=== PATIENT | male | born 1950 | race Caucasian/White ===

== ENCOUNTER 2016-05-07 16:59 | Observation (INO) | payer MEDICARE, BC ==
[~2016-05-07] VITALS: Ht 180.3 cm; Wt 150.0 kg
[~2016-05-07 16:59] MED LIST: AMLO10TA2 PO; ATOR1TAB18 PO; BENT20TA PO; CALC1CAP PO; COLA100C3 PO; CORE25TA PO; DILT-48 PO; DULC10SU3 RECTAL; FLEEENE3 PR; FURO1TAB60 PO; GABA100C4 PO; HYDR25TA35 PO; INSU1INJ5 SQ; ISOS60TA PO; LACT10SO PO; LAMO25 PO; METO5TAB3 PO; MIRA33504 PO; NOVOINJ3 SQ; PERC10TA27 PO; PRIL40CA PO; SEVEL800 PO; SITA25 PO
[2016-05-07 17:16] VITALS: BP 150/82; PULSE 72; PULSE 75; RESP 19; TEMP 97.6; TEMP 98.6; O2SAT 98
[2016-05-07] MEDS ORDERED: LANTUS2P SQ (17:44)
[2016-05-07] MEDS ORDERED: OMEP40CA2 PO (17:44)
[2016-05-07] MEDS ORDERED: NITR0.4S SL (17:44)
[2016-05-07] MEDS ORDERED: LORA-392 PO (17:44)
[2016-05-07] MEDS ORDERED: RENATAB5 PO (17:44)
[2016-05-07] MEDS ORDERED: APIX5TAB PO (17:44)
[2016-05-07] MEDS ORDERED: CELE20TA PO (17:44)
[2016-05-07] MEDS ORDERED: PHOS667C5 PO (17:44)
[2016-05-07] MEDS ORDERED: SODIUM CHLORIDE 0.9% FLUSH 5 ML FLUSH IVF PRN ×2 (18:45→20:45)
--- NOTE | 2016-05-07 18:47 | PD ---
HPI . Chest pain Chief Complaint: Chest Pain Time Seen by Provider: 18:00 Travel History International Travel<30 days: No Contact w/Intl Traveler<30days: No Traveled to known affect area: No History of Present Illness HPI Patient presents with chest pain that started at 3:30 PM. He states that he also had left arm pain. He reports chronic shortness of breath. He had diaphoresis and nausea without vomiting. Patient reports that he has had numerous previous similar episodes. Patient further reports that he is scheduled for colonoscopy and possible partial colectomy tomorrow. PFSH Past Medical History Hx Anticoagulant Therapy: No Anemia: Yes Arthritis: Yes Atrial Fibrillation: Yes Bipolar Disorder: Yes Depression: Yes Heart Rhythm Problems: Yes (Afib) Cancer: Yes (COLON) Cardiovascular Problems: Yes (HTN) High Cholesterol: Yes Chest Pain: Yes Congestive Heart Failure: Yes Cerebrovascular Accident: Yes Coronary Artery Disease: Yes Diabetes: Yes Patient Takes Glucophage: No Dialysis: Yes (--WED ) Diminished Hearing: No Endocrine: Yes (HYPERPARATHYROID) Gastrointestinal Disorders: Yes ( IBS) GERD: Yes Genitourinary: Yes (Dialysis ,,Wed) Headaches: Yes Hepatitis: Yes (C) Hiatal Hernia: No Hypertension: Yes Immune Disorder: No Implanted Vascular Access Dvce: Yes Medical other: Yes Musculoskeletal: Yes ( BACK PAIN) Neurologic: Yes Psychiatric: Yes Respiratory: Yes Migraines: Yes Renal Failure: Yes Seizures: No Sleep Apnea: No Thyroid Disease: Yes Ulcer: Yes Tetanus Vaccination: Unknown Influenza Vaccination: Yes Past Surgical History Abdominal Surgery: Yes (LAP. MARIA GUADALUPE) AICD: No Arteriovenous Shunt: Yes Cardiac Surgery: Yes (2 STENTS) Cholecystectomy: Yes (LAP) Coronary Stent: Yes (X2) Ear Surgery: No Endocrine Surgery: No Eye Surgery: No Genitourinary Surgery: No Joint Replacement: No Oral Surgery: Yes (TONSILLECTOMY) Pacemaker: No Tonsillectomy: Yes Other Surgery: Yes (SHUNT TO L UPPER ARM ) Social History Alcohol Use: No Tobacco Use: No Substance Use: No Allergies-Medications (Allergen,Severity, Reaction): Coded Allergies: Demerol (Verified Allergy, Severe, HYPERTENSION, 05/07/16) Morphine (Verified Allergy, Severe, HYPERTENSION, 05/07/16) Reported Meds & Prescriptions Reported Meds & Active Scripts Active Percocet (Oxycodone-Acetaminophen) 10-325 mg Tab 1 Tab PO Q4H PRN Reported Niya-Ann (B-Complex W/ C & Folic Acid) 1 Tab 1 Tab PO DAILY Phoslo (Calcium Acetate (Phosphate Binder)) 667 Mg Cap 2,001 Mg PO TID Take 3 capsules (2,001mg) three times a day with meals, take 1 capsule (667mg) with snacks Eliquis (Apixaban) 5 Mg Tab 5 Mg PO BID Omeprazole 40 Mg Cap 40 Mg PO DAILY Nitrostat SL (Nitroglycerin) 0.4 Mg Subl 0.4 Mg SL DIRECTED PRN 1 tablet under the tongue as needed for chest pain. Repeat every 5 minutes for a total of 3 DOSES or call 911 if NO relief. Celexa (Citalopram Hydrobromide) 20 Mg Tab 20 Mg PO DAILY Ativan (Lorazepam) 0.5 Mg Tab 0.5 Mg PO TID Lantus Inj (Insulin Glargine) 100 Unit/Ml Inj 60 Units SQ HS Novolog Flexpen Inj (Insulin Aspart) 300 Unit/3 Ml Pen 2-10 Units SQ ACHS SLIDING SCALE 0-70=4OZ orange juice, notify (if pt unresponsive give 1mg glucagon inj from E-kit & call 911) 71-150=0 units, 151-200=2 units, 201-250=4 units, 251-300=6 units, 301-350=8 units, 351-400=10 units, >400 notify Diltiazem ER 24 HR 240 Mg Caper 240 Mg PO DAILY Isosorbide Mononitrate ER (Isosorbide Mononitrate) 60 Mg Tab 60 Mg PO BID Metolazone 5 Mg Tab 5 Mg PO DAILY Amlodipine (Amlodipine Besylate) 10 Mg Tab 10 Mg PO DAILY Lamictal (Lamotrigine) 25 Mg Tab 25 Mg PO BID Januvia (Sitagliptin Phosphate) 25 Mg Tab 25 Mg PO DAILY Gabapentin 100 Mg Cap 100 Mg PO TID Lasix (Furosemide) 40 Mg Tab 40 Mg PO DAILY Colace (Docusate Sodium) 100 Mg Cap 100 Mg PO DAILY Coreg (Carvedilol) 25 Mg Tab 25 Mg PO BID Atorvastatin (Atorvastatin Calcium) 80 Mg Tab 80 Mg PO HS Hydralazine (Hydralazine HCl) 25 Mg Tab 25 Mg PO TID Take with a meal Review of Systems Except as stated in HPI: all other systems reviewed are Neg Cardiovascular: Positive: Chest Pain or Discomfort Respiratory: Positive: Shortness of Breath Gastrointestinal: Positive: Nausea Skin: Positive Other (diaphoresis) Physical Exam Narrative GENERAL: Healthy-appearing man in no acute distress. SKIN: Warm and dry. HEAD: Atraumatic. Normocephalic. EYES: Pupils equal and round. ENT: No nasal bleeding or discharge. Mucous membranes pink and moist. NECK: Trachea midline. Neck is supple. CARDIOVASCULAR: He has an irregularly irregular rate and rhythm. Rate is controlled. RESPIRATORY: No accessory muscle use. Lungs are clear with full air movement throughout. GASTROINTESTINAL: Abdomen soft, non-tender, nondistended. MUSCULOSKELETAL: No obvious deformities. No edema. NEUROLOGICAL: Awake and alert. No obvious cranial nerve deficits. Motor grossly within normal limits. Normal speech. PSYCHIATRIC: Appropriate mood and affect; insight and judgment normal. Data Data Last Documented VS Vital Signs Date Time Temp Pulse Resp B/P Pulse Ox O2 Delivery O2 Flow Rate FiO2 05/07/16 19:20 108 15 100 Nasal Cannula 2 05/07/16 19:20 134/109 05/07/16 17:16 97.6 Orders Electrocardiogram (05/07/16 ) Basic Metabolic Panel (Bmp) (05/07/16 18:37) Ckmb (Isoenzyme) Profile (05/07/16 18:37) Complete Blood Count With Diff (05/07/16 18:37) Magnesium (Mg) (05/07/16 18:37) Troponin I (05/07/16 18:37) Chest, Single Ap (05/07/16 18:37) Ecg Monitoring (05/07/16 18:37) Bilateral Bp Monitoring (05/07/16 18:37) Iv Access Insert/Monitor (05/07/16 18:37) Oximetry (05/07/16 18:37) Oxygen Administration (05/07/16 18:37) Sodium Chloride 0.9% Flush (Ns Flush) (05/07/16 18:45) Prothrombin Time / Inr (Pt) (05/07/16 19:24) Act Partial Throm Time (Ptt) (05/07/16 19:24) Place In Observation (05/07/16 20:33) Activity Bed Rest With Brp (05/07/16 20:33) Vital Signs (Adult) Q4H (05/07/16 20:33) Cardiac Rhythm .As Directed (05/07/16 20:33) ^ Notify Dr: Other .PRN (05/07/16 20:33) ^ Notify Parameters (05/07/16 20:33) Resp Oxygen Nasal Cannula (05/07/16 ) Ckmb (Isoenzyme) Profile (05/07/16 22:17) Ckmb (Isoenzyme) Profile (05/08/16 01:17) Troponin I (05/07/16 22:17) Troponin I (05/08/16 01:17) Electrocardiogram (05/07/16 20:33) Electrocardiogram (05/07/16 23:33) ^ Obtain (05/07/16 20:33) Sodium Chloride 0.9% Flush (Ns Flush) (05/07/16 20:45) Sodium Chloride 0.9% Flush (Ns Flush) (05/07/16 21:00) Ondansetron Inj (Zofran Inj) (05/07/16 20:45) Nitroglycerin 2% Oint (Nitroglycerin 2% (05/07/16 20:45) Aspirin Chew (Aspirin Chew) (05/07/16 20:45) Disciplinary Hearing Officer / Telemetry ORQUIDEA.Q8H (05/07/16 20:33) Vte Prophylaxis Not Indicated (05/07/16 20:33) Heparin Inj (Heparin Inj) (05/07/16 20:45) Scd Bilateral/Knee High ORQUIDEA.BID (05/07/16 20:33) Labs Laboratory Tests Test 05/07/16 19:17 White Blood Count 14.3 TH/MM3 Red Blood Count 4.69 MIL/MM3 Hemoglobin 13.4 GM/DL Hematocrit 40.7 % Mean Corpuscular Volume 86.8 FL Mean Corpuscular Hemoglobin 28.6 PG Mean Corpuscular Hemoglobin 33.0 % Concent Red Cell Distribution Width 18.5 % Platelet Count 208 TH/MM3 Mean Platelet Volume 7.1 FL Neutrophils (%) (Auto) 78.5 % Lymphocytes (%) (Auto) 11.5 % Monocytes (%) (Auto) 8.5 % Eosinophils (%) (Auto) 1.0 % Basophils (%) (Auto) 0.5 % Neutrophils # (Auto) 11.3 TH/MM3 Lymphocytes # (Auto) 1.6 TH/MM3 Monocytes # (Auto) 1.2 TH/MM3 Eosinophils # (Auto) 0.1 TH/MM3 Basophils # (Auto) 0.1 TH/MM3 CBC Comment DIFF FINAL Differential Comment Sodium Level 138 MEQ/L Potassium Level 4.7 MEQ/L Chloride Level 98 MEQ/L Carbon Dioxide Level 31.7 MEQ/L Anion Gap 8 MEQ/L Blood Urea Nitrogen 32 MG/DL Creatinine 5.68 MG/DL Estimat Glomerular Filtration 10 ML/MIN Rate Random Glucose 133 MG/DL Calcium Level 9.2 MG/DL Magnesium Level 2.1 MG/DL Total Creatine Kinase 81 U/L Troponin I LESS THAN 0.02 NG/ML MDM Medical Decision Making Medical Screen Exam Complete: Yes Emergency Medical Condition: Yes Medical Record Reviewed: Yes (patient has a history of atrial fibrillation. He had an echo done in February that showed a normal ejection fraction.) Interpretation(s) EKG shows atrial fibrillation with a rate of 100. He has no ST segment elevation or depression. EKG is unchanged from previous. Differential Diagnosis Differential diagnosis of chest pain includes but is not limited to musculoskeletal pain, pulmonary embolism, acute coronary syndrome, pneumonia, pleurisy Narrative Course Patient presents for evaluation of chest pain. I have not yet ordered any aspirin or any other antiplatelet or anticoagulation medication. He is scheduled for colonoscopy tomorrow. Therefore, I will hold off on these medications until we have a better picture as to what is going on with him tonight. Patient's initial workup has been negative. He does continue to complain with chest pain. I have subsequently ordered aspirin, heparin (as he is a renal failure patient) and nitroglycerin. He will be admitted to the chest pain center. Critical Care Narrative Aggregate critical care time was 45 minutes. Time to perform other separately billable procedures was not included in the critical care time. My time did not include minutes spent treating any other patients simultaneously or on activities that did not directly contribute to the patient's treatment. The services I provided to this patient were to treat and/or prevent clinically significant deterioration that could result in: Fail cardiac dysrhythmia, cardiac disability, cardiovascular collapse I provided critical care services requiring my management, as noted below: Chart data review, documentation time, medication orders and management, vital sign assessments/reviewing monitor data, ordering and reviewing lab tests, ordering and interpreting/reviewing x-rays and diagnostic studies, care of the patient and discussion of the patient with the admitting physicians. Diagnosis Primary Impression: Chest pain Qualified Code: R07.9 - Chest pain, unspecified type Admitting Information Admitting Physician Requests: Admit Condition: Stable Samantha Adamson MD May 07, 2016 18:47
[2016-05-07 19:20] VITALS: BP 134/109; PULSE 97; RESP 15; O2SAT 95
[2016-05-07 19:29] LABS: AUTOMATED NEUTROPHIL # 11.3 TH/MM3 (1.8-7.7); BASOPHIL # 0.1 TH/MM3 (0-0.2); BASOPHIL % 0.5 % (0.0-2.0); EOSINOPHIL # 0.1 TH/MM3 (0-0.4); HEMATOCRIT 40.7 % (39.0-51.0); HEMO FLAGS DIFF FINAL; LYMPH % 11.5 % (9.0-44.0); LYMPHOCYTE # 1.6 TH/MM3 (1.0-4.8); MEAN CELL VOLUME 86.8 FL (80.0-100.0); MEAN CORPUSCULAR HEMOGLOBIN 28.6 PG (27.0-34.0); MONO % 8.5 % (0.0-8.0); NEUT % 78.5 % (16.0-70.0); PLATELET COUNT 208 TH/MM3 (150-450); RED BLOOD COUNT 4.69 MIL/MM3 (4.50-5.90); RED CELL DISTRIBUTION WIDTH 18.5 % (11.6-17.2); WHITE BLOOD COUNT 14.3 TH/MM3 (4.0-11.0)
--- NOTE | 2016-05-07 19:46 | RADRPT ---
EXAM DATE/TIME: 05/07/2016 18:48 [facility] COMPARISON: CHEST SINGLE AP, March 15, 2016, 18:27. INDICATIONS : Chest pain. MEDICAL HISTORY : Hypertension. SURGICAL HISTORY : Carotid stent. ENCOUNTER: Initial ACUITY: 1 day PAIN SCORE: 6/10 LOCATION: chest FINDINGS: A single view of the chest demonstrates the lungs to be symmetrically aerated without evidence of mas s, infiltrate or effusion. The cardiomediastinal contours are unremarkable. Osseous structures are intact. CONCLUSION: No acute disease. Telly Jo MD on May 07, 2016 at 19:44 Board Certified Radiologist. This report was verified electronically.
[2016-05-07 19:51] LABS: ANION GAP 8 MEQ/L (5-15); BICARBONATE 31.7 MEQ/L (21.0-32.0); BLOOD UREA NITROGEN 32 MG/DL (7-18); CHLORIDE 98 MEQ/L (98-107); GLOMERULAR FILTRATION RATE 10 ML/MIN (>89); MAGNESIUM 2.1 MG/DL (1.5-2.5); POTASSIUM 4.7 MEQ/L (3.5-5.1); SODIUM (NA) 138 MEQ/L (136-145)
[2016-05-07 20:03] LABS: CREATINE KINASE 81 U/L (39-308)
[2016-05-07] MEDS ORDERED: ASPIRIN 81 MG CHEW TAB PO ONE (20:45)
[2016-05-07] MEDS ORDERED: ONDANSETRON HCL 4 MG/2 ML VIAL IV PRN (20:45)
[2016-05-07] MEDS: NITROGLYCERIN 2% OINT 1 GM PACKET TOP SCH ×2 (21:47→23:54)
[2016-05-07] MEDS: HEPARIN SODIUM - SQ 10,000 UNITS/ML VIAL SQ SCH (21:47)
[2016-05-07] MEDS: SODIUM CHLORIDE 0.9% FLUSH 5 ML FLUSH IVF SCH (21:48)
[2016-05-07 22:31] VITALS: BP 105/51; PULSE 96; RESP 16; O2SAT 96
[2016-05-07 23:03] LABS: APTT (PATIENT) 28.5 SEC (24.3-30.1); INTERNATIONAL NORMALIZED RATIO 1.1 RATIO; PROTHROMBIN TIME - PATIENT 11.8 SEC (9.8-11.6)
[2016-05-07 23:16] LABS: CREATINE KINASE 63 U/L (39-308)
[2016-05-08 00:28] VITALS: PULSE 97
[2016-05-08 01:01] VITALS: BP 126/76; PULSE 67; RESP 18; TEMP 98.7; O2SAT 97
[2016-05-08 01:54] LABS: CREATINE KINASE 62 U/L (39-308)
[2016-05-08 04:19] VITALS: PULSE 96
[2016-05-08 04:36] VITALS: BP 126/60; PULSE 56; RESP 18; TEMP 97.6; O2SAT 97
[2016-05-08] MEDS: NITROGLYCERIN 2% OINT 1 GM PACKET TOP SCH ×2 (06:22→12:00)
[2016-05-08 08:06] VITALS: BP 94/58; PULSE 106; RESP 18; TEMP 97.2; O2SAT 94
[2016-05-08] MEDS ORDERED: REGADENOSON INJ 0.4 MG/5 ML SYR ONE (09:41)
[2016-05-08] MEDS ORDERED: DEXTROSE 50% IN WATER 50 ML VIAL(D50) IV PRN (09:45)
[2016-05-08] MEDS ORDERED: GLUCAGON 1 MG/ML VIAL IM/SQ PRN (09:45)
[2016-05-08] MEDS ORDERED: CARVEDILOL 12.5 MG TAB PO SCH (09:45)
[2016-05-08] MEDS ORDERED: DILTIAZEM-CD 240 MG CAP ER PO SCH (09:45)
[2016-05-08] MEDS ORDERED: INSULIN ASPART SUPPLEMENTAL SCALE SQ SCH (11:00)
[2016-05-08 11:43] VITALS: BP 138/60; PULSE 93; RESP 18; TEMP 97.1; O2SAT 95
--- NOTE | 2016-05-08 11:45 | MH ---
cc: ABRAHAM MARINO MD DATE OF ADMISSION: 05/07/2016 DATE OF 1950 CHIEF COMPLAINT Chest pain HISTORY OF PRESENT ILLNESS This is a 66-year-old male with a history of CAD and atrial fibrillation and renal failure who undergoes dialysis. He presents with developing a chest comfort to yesterday while on dialysis. This was in the center of his chest and lasted 30 minutes. He was diaphoretic and nauseous and states he was short of breath and states he is essentially always short of breath. He said several times that his discomfort seemed similar to the pain he gets with his hiatal hernia. It does not feel similar to the discomfort that he has with his heart disease in the past. 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 He also has a health aide that he follows, but he does not recall their name. His primary care physician is Dr. Brock. Seeing the patient today, he is supposed to have colonoscopy today. He apparently had a diagnostic laparoscopy with polypectomy with partial wedge type colectomy March 17, [address] Hodge, but did not recall this. He is somewhat of a poor historian. He states he lives with his friend Justina and I can talk with her to get more information, but I have able unable to reach her at this time. PAST MEDICAL HISTORY 1. A fibrillation. r The patient does not take Eliquis. The patient states he was told to stop taking Eliquis, however found a dictation from a GI note that stated that the patient was refusing to take his Eliquis because he was afraid to bleed. Discussed this with the patient and again he still states that he was told not to take the Eliquis secondary to GI bleeding 2. CAD with stenting. He believes the last time was about 10 years ago. 3. Renal failure and undergoes dialysis. 4. The pathology from colonoscopy came back adenocarcinoma moderately differentiated, however the pathology of the bowel resection did not show any evidence of malignancy. 5. Hyperlipidemia 6. Inflammatory bowel disease. ALLERGIES DEMEROL AND MORPHINE CURRENT MEDICATIONS Include: 1. Amlodipine 2. Atorvastatin 3. Bentyl 4. Calcium acetate 5. Carvedilol 6. Diltiazem 7. Docusate 8. Dulcolax 9. Lasix 10. Gabapentin 11. Hydralazine 12. Isosorbide 13. Januvia 14. Lactulose 15. Lamotrigine 16. Levemir 17. Metolazone 18. NovoLog 19. Omeprazole 20. Oxycodone 21. Polyethylene glycol PAST SURGICAL HISTORY 1. Recent laparoscopy and polypectomy with partial wedge type colectomy. 2. He has had cardiac catheterizations with stenting. 3. He has a fistula for his dialysis. 4. Cholecystectomy 5. tonsillectomy REVIEW OF SYSTEMS GENERAL: Denies fevers or chills. Denies recent illnesses. HEENT: Denies headache, earache, sore throat or difficulty swallowing. CARDIOVASCULAR: Describes the discomfort as mentioned above. There is diaphoresis. Denies sensation of heart beating rapidly or irregularly. No syncope. RESPIRATORY: No shortness breath, but states he always is short of breath. Denies coughing, wheezing or hemoptysis. GI: There is nausea, but denies emesis. Denies abdominal pain. Denies diarrhea, constipation, blood in stool. MUSCULOSKELETAL: Denies joint pain or edema. Denies calf pain or edema. NEUROVASCULAR: Denies headache or dizziness. ENDOCRINE: Denies polyuria or polydipsia. HEMATOLOGIC: Denies easy bruising. SKIN: Denies rash or itching. PHYSICAL EXAMINATION VITAL SIGNS: In the emergency department included a blood pressure of 150/82, heart rate 72, respirations 19, pulse oximetry 98% on room air and he was afebrile. Most vital signs include a blood pressure 94/53, heart rate 106, respirations 18, pulse oximetry 94% on room air and he was afebrile. I had his blood pressure retaken and the systolic was over 100 at that time. GENERAL: The patient seen in the examination room in no apparent stress. He is morbidly obese at 150 kg. He is also with Dr. Abraham Marino. HEENT: Head is atraumatic, normocephalic. NECK: Supple without lymphadenopathy and trachea is midline. No JVD or carotid bruits. CARDIOVASCULAR: Irregularly irregular rate and rhythm without gallop or rub. RESPIRATORY: Lungs are clear to auscultation bilaterally. No wheezing, rales or rhonchi. There is no reproducible chest wall discomfort. No use of accessory muscles. GI: Abdomen is nontender. Bowel sounds normal. MUSCULOSKELETAL: The patient is moving upper and lower extremities freely. No joint tenderness or edema. No calf tenderness or edema, Homans' sign. Strong pulses in the upper and lower extremities. NEUROVASCULAR: The patient is alert and oriented. Cranial II XII grossly intact. There are no focal deficits. Speech clear. SKIN: No skin rashes, turgor is normal. LABORATORY DATA CBC has an elevated white blood cell count of 14.3 with 78.5% neutrophils, but otherwise essentially remarkable CBC. Coagulation studies unremarkable. A basic metabolic panel has a BUN elevated to 32, creatinine elevated to 5.68, GFR decreased at 10, glucose elevated at 133. Serial cardiac enzymes normal x3. Single view chest x-ray read by radiologist as no acute disease. EKG's EKG's have A. Fib with the highest rate of [address]-segment depression or elevation. ASSESSMENT AND PLAN 1. Chest pain: The patient has had serial cardiac enzymes and EKG's for ruling out purposes. He has been seen by Dr. Abraham Marino of Cardiology in the [facility]. We have been unable to ascertain through the patient who follows her cardiology. Subsequently, we will repeat a Lexiscan. He had one in January that was nonischemic, but as he is a poor history, we will try to confirm, hopefully it was a nonischemic stress test. If stress test were to be nonischemic, he can be will be discharged home with instruction to follow up with a local primary care physician, his rehabilitation services aide and his health aide and also he needs to follow up with his oncologist. 2. Atrial fibrillation: He needs to follow up with his health aide. Resume his medications. The patient is declining Eliquis at this time. We need to discuss with his physician. 3. CAD: The patient will follow with his health aide. Resume medications. We will reassess with stress testing. 4. Recently told adenocarcinoma via polypectomy during colonoscopy. He needs to continue to follow up with his Oncologist. 5. Hypertension: Continue current medication. 6. Renal failure: Continue his therapy as instructed by his rehabilitation services aide. 7. Diabetes: Continue his current medication and he should be following a diabetic diet. The patient is stable at time. He is agreeable with this plan. Dictated by RYAN Peralta MD RAVIN Felix/NATE /10:38 AM /11:42 AM
--- NOTE | 2016-05-08 11:48 | RADRPT ---
EXAM DATE/TIME: 05/08/2016 09:40 [facility] COMPARISON: MYOCARDIAL PERF PHARM SPECT, GATED W/EF, January 15, 2016, 9:26. INDICATIONS : Substernal chest pain radiating to left arm with nausea, diaphoresis and dyspnea. Angina. Coronary ar ramón disease. DOSE: 34.7 mCi Tc99m Myoview at stress. 11 mCi Tc99m Myoview at rest. 0.4 mg Lexiscan STRESS SYMPTOMS: Nausea, headache, lightheaded, chest pressure and left arm pain. EJECTION FRACTION: 39% MEDICAL HISTORY : Carcinoma, colon. Gastroesophageal reflux disease. Hyperparathyroidism. Diabetes, atrial fibrillation , hepatitis C, hypertension, congestive heart failure, CVA and irritable bowel syndrome. SURGICAL HISTORY : Cholecystectomy. Coronary artery stent. Tonsillectomy. ENCOUNTER: Initial ACUITY: 1 day PAIN SCALE: 6/10 LOCATION: Substernal chest TECHNIQUE: The patient underwent pharmacologic stress with infusion of prescribed dose. Continuous ECG tracing was monitored during stress. Gated SPECT imaging was performed after stress and conventional SPECT i maging was performed at rest. The examination was performed on a SPECT/CT scanner, both attenuation and non-corrected datasets were reviewed. FINDINGS: DISTRIBUTION: The maximum perfused segment at stress is in the anteroseptal wall. PERFUSION STUDY: The pattern of perfusion at stress is within normal limits. GATED STUDY: There is intact wall motion and thickening without hypokinetic or dyskinetic segments. CONCLUSION: 1. No reversible perfusion defect to suggest stress induced myocardial ischemia. 2. Calculated ejection fraction was somewhat low at 39%. RISK CATEGORY: Intermediate (1-3% Annual Mortality Rate) Martin Cisneros MD on May 08, 2016 at 11:45 Board Certified Radiologist. This report was verified electronically.
[2016-05-08] MEDS: HEPARIN SODIUM - SQ 10,000 UNITS/ML VIAL SQ SCH (12:09)
[2016-05-08] MEDS: SODIUM CHLORIDE 0.9% FLUSH 5 ML FLUSH IVF SCH (12:09)
--- NOTE | 2016-05-08 12:44 | HHI.DCPOC ---
Discharge Care Plan Diagnosis: (1) Chest pain (2) A-fib (3) Hypertension (4) ESRD on hemodialysis (5) Type 2 diabetes mellitus Goals to Promote Your Health * To prevent worsening of your condition and complications * To maintain your health at the optimal level Directions to Meet Your Goals Take your medications as prescribed Follow your dietary instruction Follow activity as directed Keep your appointments as scheduled Take your immunizations and boosters as scheduled If your symptoms worsen call your PCP, if no PCP go to Urgent Care Center or Emergency Room Smoking is Dangerous to Your Health. Avoid second hand smoke Call the 24-hour hour crisis hotline for domestic abuse at Nabeel Daly May 08, 2016 12:44
[2016-05-08] MEDS ORDERED: ISOSORBIDE MONONITRATE 60 MG TAB PO SCH (12:45)
[2016-05-08] MEDS ORDERED: hydrALAZINE HCL 25 MG TAB PO SCH (13:00)
[2016-05-08] MEDS ORDERED: FUROSEMIDE 40 MG TAB PO SCH (13:00)
[2016-05-08] MEDS ORDERED: CITALOPRAM HYDROBROMIDE 20 MG TAB PO SCH (13:00)
[2016-05-08] MEDS ORDERED: CALCIUM ACETATE 667 MG CAP PO SCH (13:00)
[2016-05-08] MEDS ORDERED: GABAPENTIN 100 MG CAP PO SCH (13:00)
[2016-05-08] MEDS ORDERED: PANTOPRAZOLE SOD 40 MG DELAYED RELEASE TAB PO SCH (13:00)
[2016-05-08] MEDS ORDERED: lamoTRIgine 25 MG TAB PO SCH (14:00)
--- NOTE | 2016-05-08 15:18 | EKG ---
Date Performed: 05/07/2016 Time Performed: 22:26:50 PTAGE: 66 years EKG: ATRIAL FIBRILLATION WITH RAPID VENTRICULAR RESPONSE ABNORMAL RHYTHM ECG PREVIOUS TRACING : 05/07/2016 17.32 Since previous tracing, no significant change noted DOCTOR: Jr Roberts Interpretating Date/Time 05/08/2016 15:17:35
--- NOTE | 2016-05-08 15:18 | EKG ---
Date Performed: 05/08/2016 Time Performed: 01:08:20 PTAGE: 66 years EKG: ATRIAL FIBRILLATION WITH RAPID VENTRICULAR RESPONSE ABNORMAL RHYTHM ECG PREVIOUS TRACING : 05/07/2016 22.26 Since previous tracing, no significant change noted DOCTOR: Jr Roberts Interpretating Date/Time 05/08/2016 15:17:03
--- NOTE | 2016-05-08 15:20 | EKG ---
Date Performed: 05/07/2016 Time Performed: 17:32:40 PTAGE: 66 years EKG: ATRIAL FIBRILLATION WITH RAPID VENTRICULAR RESPONSE WITH ABERRANT CONDUCTION OR VENTRICULAR PREMATURE COMPLEXES ABNORMAL RHYTHM ECG PREVIOUS TRACING : 03/15/2016 18.01 Since previous tracing, no significant change noted DOCTOR: Jr Roberts Interpretating Date/Time 05/08/2016 15:19:35
--- NOTE | 2016-05-08 15:26 | TR ---
Date Performed: 05/08/2016 Time Performed: 10:12:54 DOCTOR: Jr Roberts DRUG LIST: CLINICAL HISTORY: REASON FOR TEST: CHEST PAIN REASON FOR ENDING: OBSERVATION: CONCLUSION: Lexiscan stress test was performed under standard four minute protocol. Radionuclid e was injected one minute prior to ending the test. No electrocardiographic abormalities were present to suggest ischemia. Nuclear imaging and interpretation are pending. COMMENTS:
[2016-05-08] MEDS ORDERED: ATORVASTATIN 80 MG TAB PO SCH (21:00)
[2016-05-09] MEDS ORDERED: METOLAZONE 5 MG TAB PO SCH (09:00)
[2016-05-09] MEDS ORDERED: VITAMIN B CMPLX/VITC/FOLIC AC CAP PO SCH (09:00)
[2016-07-09] MEDS ORDERED: SEVEL800 PO (13:54)
[2016-08-03] MEDS ORDERED: DULC10SU3 RECTAL (14:38)
[2016-08-03] MEDS ORDERED: SENN8.6T5 PO (14:38)
[2016-08-03] MEDS ORDERED: AMLO10TA2 PO (14:38)
[2016-08-03] MEDS ORDERED: LANTUS2P SQ (14:38)
[2016-08-03] MEDS ORDERED: LAMO25TA PO (14:38)
[2016-08-03] MEDS ORDERED: NOVOLOGP2 SQ (14:38)
[2016-08-03] MEDS ORDERED: SEVEL800 PO (14:38)
[2016-08-03] MEDS ORDERED: MIRA33504 PO (14:38)
[2016-08-03] MEDS ORDERED: HYDR-3516 PO (14:38)
== END 2016-05-08 17:04 | disposition home or self-care (01) ==
LOC: NEPA 16:59 → NEDA 20:37 → NEPGCP 23:09
PROVIDERS: ADMIT Internal Medicine Cardiovascular Disease; ATTEND Internal Medicine Cardiovascular Disease
DX: R07.9 Chest pain, unspecified (principal); I25.10 Atherosclerotic heart disease of native coronary artery without angina pectoris; I48.91 Unspecified atrial fibrillation; I12.0 Hypertensive chronic kidney disease with stage 5 chronic kidney disease or end stage renal disease; N18.6 End stage renal disease; E11.9 Type 2 diabetes mellitus without complications; K21.9 Gastro-esophageal reflux disease without esophagitis; E78.5 Hyperlipidemia, unspecified; E78.00 Pure hypercholesterolemia, unspecified; K58.9 Irritable bowel syndrome, unspecified; F31.9 Bipolar disorder, unspecified; Z86.73 Personal history of transient ischemic attack (TIA), and cerebral infarction without residual deficits; Z95.5 Presence of coronary angioplasty implant and graft; Z99.2 Dependence on renal dialysis
CPT/HCPCS: 71010; 78452; 80048; 82550; 82948; 83735; 84484; 85025; 85610; 85730; 93005; 93017; 99291; A9502; G0378; J1644; J1815; J2785

== ENCOUNTER 2016-07-10 08:18 | Inpatient (IN) | payer MEDICARE, BC ==
[~2016-07-10] VITALS: Ht 180.3 cm; Wt 141.3 kg
[~2016-07-10 08:18] MED LIST changes: -BENT20TA PO; -CALC1CAP PO; -DULC10SU3 RECTAL; -FLEEENE3 PR; -INSU1INJ5 SQ; -LACT10SO PO; +LANTUS2P SQ; -MIRA33504 PO; +NITR0.4S SL; +OMEP40CA2 PO; -PERC10TA27 PO; +PHOS667C5 PO; -PRIL40CA PO
[2016-07-10] MEDS ORDERED: HUMALOG SQ (09:02)
[2016-07-10 09:10] VITALS: BP 121/55; PULSE 112; RESP 20; TEMP 98.8; O2SAT 95
[2016-07-10] MEDS ORDERED: metroNIDAZOLE 500 MG INJ 100 ML IV ONE (09:11)
[2016-07-10] MEDS ORDERED: ceFAZolin 2 GM PREMIX 50 ML ONE (09:11)
[2016-07-10] MEDS ORDERED: BUPIVACAINE/EPINEPHRINE 0.25% 50 ML VIAL ONE (09:43)
[2016-07-10 09:49] LABS: AUTOMATED NEUTROPHIL # 8.8 TH/MM3 (1.8-7.7); BASOPHIL # 0.1 TH/MM3 (0-0.2); BASOPHIL % 0.6 % (0.0-2.0); EOSINOPHIL # 0.2 TH/MM3 (0-0.4); EOSINOPHIL % 1.7 % (0.0-4.0); HEMATOCRIT 31.5 % (39.0-51.0); HEMO FLAGS DIFF FINAL; LYMPH % 12.2 % (9.0-44.0); LYMPHOCYTE # 1.4 TH/MM3 (1.0-4.8); MEAN CELL VOLUME 85.3 FL (80.0-100.0); MEAN CORPUSCULAR HEMOGLOBIN 28.2 PG (27.0-34.0); MEAN CORPUSCULAR HGB CONC 33.1 % (32.0-36.0); MONO % 9.9 % (0.0-8.0); NEUT % 75.6 % (16.0-70.0); PLATELET COUNT 253 TH/MM3 (150-450); RED CELL DISTRIBUTION WIDTH 18.6 % (11.6-17.2); WHITE BLOOD COUNT 11.6 TH/MM3 (4.0-11.0)
[2016-07-10] MEDS ORDERED: FAMOTIDINE 20 MG/2 ML VIAL ONE (10:04)
[2016-07-10 10:05] LABS: BICARBONATE 27.6 MEQ/L (21.0-32.0); POTASSIUM 4.1 MEQ/L (3.5-5.1)
[2016-07-10] MEDS ORDERED: VASOPRESSIN INJ 20 UNITS/ML VIAL ONE (11:19)
[2016-07-10] MEDS ORDERED: SUGAMMADEX SODIUM 200 MG/2 ML VIAL IV PUSH ONE ×2 (11:19)
[2016-07-10] MEDS ORDERED: PHENYLEPH/NS 1000 MCG/10 ML SYR IV ONE (12:00)
[2016-07-10] MEDS ORDERED: PROPOFOL 200 MG/20 ML AMP IV ONE (12:00)
[2016-07-10] MEDS ORDERED: ePHEDrine/NS 25 MG/5 ML SYR IV ONE (12:00)
[2016-07-10] MEDS ORDERED: ONDANSETRON HCL 4 MG/2 ML VIAL IV PUSH ONE (12:00)
[2016-07-10] MEDS ORDERED: SODIUM CHLOR 0.9% 1000 ML INJ 3,000 ML IV ONE (12:00)
--- NOTE | 2016-07-10 12:29 | GIPROC ---
[facility] [address] [facility]. [facility] [place], [address] EGD PROCEDURE REPORT EXAM DATE: 07/10/2016 PATIENT NAME: Jj Adams MR #: [id number] BIRTHDATE: 1950 ATTENDING: Bulmaro Harper MD ORDER #: [id number] [employer] DRIVER: Gregorio Giles and [place] STATUS: outpatient INDICATIONS: The patient is a 66 yr old male here for an EGD due to anemia PROCEDURE PERFORMED: EGD w/ biopsy MEDICATIONS: None and Per Anesthesia. TOPICAL ANESTHETIC: CONSENT: The patient understands the risks and benefits of the procedure and understands that these risks include, but are not limited to: sedation, allergic reaction, infection, perforation and/or bleeding. Alternative means of evaluation and treatment include, among others: physical exam, x-rays, and/or surgical intervention. The patient elects to proceed with this endoscopic procedure. medical equipment was checked for proper function. Hand hygiene and appropriate measures for infection prevention was taken. After the risks, benefits and alternatives of the procedure were thoroughly explained, Informed consent was verified, confirmed and timeout was successfully executed by the treatment team. The patient was anesthetized with topical anesthesia and the EC-[id number] (Pedi C) endoscope was introduced through the mouth and advanced to the second portion of the duodenum. Retroflexed views revealed no abnormalities The gastroscope was then slowly withdrawn and removed. STOMACH: There was erythematous moderate gastritis in the gastric antrum. And edema. Multiple biopsies were performed. The endoscopy was otherwise normal. ADVERSE EVENTS: There were no complications. IMPRESSIONS: 1. There was erythematous gastritis in the gastric antrum; And edema; multiple biopsies were performed 2. Normal endoscopy otherwise 3. Retroflexed views revealed no abnormalities RECOMMENDATIONS: 1. Await biopsy results. Biopsy results will not be ready for 7-10 days. If you don't hear from us in two weeks, call our office for biopsy results. 2. Follow-up: GI clinic 4 week(s) PATIENT CONDITION: stable DISPOSITION: Inpatient REPEAT EXAM: Bulmaro Harper MD eSigned: Bulmaro Harper MD 07/10/2016 12:28 PM cc: PATIENT NAME: Jj Adams MR#: [id number]
--- NOTE | 2016-07-10 12:33 | GIPROC ---
[facility] [address] [facility]. [facility] [place], [address] COLONOSCOPY PROCEDURE REPORT EXAM DATE: 07/10/2016 PATIENT NAME: Jj Adams MR #: [id number] BIRTHDATE: 1950 ENDOSCOPIST: Bulmaro Harper MD ORDER #: [id number] SKY DIVER: Gregorio Giles and [place] STATUS: outpatient INDICATIONS: The patient is a 66 yr old male here for a colonoscopy due to colon cancer ascending colon PROCEDURE PERFORMED: Colonoscopy, diagnostic Submucosal injection, any substance MEDICATIONS: None and Per Anesthesia. PREP QUALITY: fair ESTIMATED BLOOD LOSS: None CONSENT: The patient understands the risks and benefits of the procedure and understands that these risks include, but are not limited to: sedation, allergic reaction, infection, perforation and/or bleeding. Alternative means of evaluation and treatment include, among others: physical exam, x-rays, and/or surgical intervention. The patient elects to proceed with this endoscopic procedure. medical equipment was checked for proper function. Hand hygiene and appropriate measures for infection prevention was taken. After the risks, benefits and alternatives of the procedure were thoroughly explained, Informed consent was verified, confirmed and timeout was successfully executed by the treatment team. A digital exam was not performed The Pentax [id number] endoscope was introduced through the anus and advanced to the cecum, which was identified by both the appendix and ileocecal valve. The instrument was then slowly withdrawn as the colon was fully examined. COLON FINDINGS: A mass measuring 3 X 1cm in size was found in the ascending colon. Irregular probable malignancy prior biopsy shown adenocarcinoma. A tattoo was applied. The colon mucosa was otherwise normal. The scope was then completely withdrawn from the patient and the procedure terminated. PROCEDURE WITHDRAWAL TIME:6minutes ADVERSE EVENTS: There were no complications. IMPRESSIONS: 1. Mass measuring 3 X 1cm in size was found in the ascending colon; Irregular probable malignancy prior biopsy shown adenocarcinoma; a tattoo was applied 2. The colon mucosa was otherwise normal 3. Was not performed RECOMMENDATIONS: 1. Follow-up: GI Clinic 4 week(s) 2. Further plans as per Dr. Hodge RECALL: Return 3 years Colonoscopy Bulmaro Harper MD eSigned: Bulmaro Harper MD 07/10/2016 12:32 PM cc:
[2016-07-10] MEDS ORDERED: BENZOCAINE 20% ORAL SPR 60 ML CAN MT PRN (14:15)
[2016-07-10] MEDS ORDERED: Post-op Orders (for Pharmacy) MISC XX ONE (14:15)
[2016-07-10] MEDS ORDERED: GLUCAGON 1 MG/ML VIAL OTHER PRN (14:15)
[2016-07-10] MEDS ORDERED: NALOXONE HCL 0.4 MG/ML AMP IV PRN (14:15)
[2016-07-10] MEDS ORDERED: DEXTROSE 50% IN WATER 50 ML VIAL(D50) IV PUSH PRN (14:15)
[2016-07-10] MEDS ORDERED: SODIUM CHLORIDE 0.9% FLUSH 10 ML FLUSH IV FLUSH PRN (14:15)
[2016-07-10] MEDS ORDERED: DO NOT ADM ANY ANTICOAGULANT DRUGS PRN (14:19)
--- NOTE | 2016-07-10 14:21 | HHI.PR ---
Immediate Post Op Note Procedure Date: Jul 10, 2016 Pre Op Diagnosis: (1) Colonic polyp (2) Colon cancer Post Op Diagnosis: (1) Colon cancer (2) Colonic polyp Surgeon: Emery Hodge Electric Engine Mechanic(s): staff Procedure: laparoscopic right colectomy Findings: tattoo right colon Complications: none Specimen(s) removed: right colon appendix Estimated blood loss: 50ml Anesthesia: General, Local Drains: None IVF Patient to: PACU Patient Condition: Good Emery Hodge MD Jul 10, 2016 14:21
[2016-07-10] MEDS ORDERED: fentaNYL CITRATE 250 MCG/5 ML AMP ONE (14:23)
[2016-07-10] MEDS ORDERED: *HYDROmorphone PF 1 MG VIAL PERIprocedural Use ONLY ONE ×2 (14:29→14:52)
[2016-07-10] MEDS: ALVIMOPAN 12 MG CAPSULE PO SCH ×2 (15:00→19:52)
[2016-07-10] MEDS: ACETAMINOPHEN 1000 MG/100 ML VIAL IV SCH ×2 (15:00→19:54)
[2016-07-10] MEDS ORDERED: metroNIDAZOLE 500 MG INJ 100 ML IV SCH (15:00)
[2016-07-10] MEDS ORDERED: *ONDANSETRON 4 MG VIAL PERIprocedural Use ONLY ONE (15:34)
[2016-07-10 16:00] VITALS: BP 104/55; PULSE 94; RESP 18; TEMP 96.7; O2SAT 90
[2016-07-10] MEDS ORDERED: PANTOPRAZOLE SODIUM 40 MG VIAL IV SCH (16:00)
[2016-07-10] MEDS: INSULIN NovoLIN REGULAR SUPPLEMENTAL SCALE SQ SCH ×2 (16:00→21:00)
[2016-07-10] MEDS: HYDROmorphone HCL PF 1 MG/ML VIAL IV PRN (17:52)
[2016-07-10] MEDS: ONDANSETRON HCL 4 MG/2 ML VIAL IV PRN (17:52)
[2016-07-10 18:01] VITALS: O2SAT 90
[2016-07-10] MEDS: metroNIDAZOLE 500 MG INJ 100 ML IV SCH (19:51)
--- NOTE | 2016-07-10 19:54 | PD.CONS ---
[facility] By Oncological surgery Reason for Consult Medical management Primary Care Physician Keven Brock Diagnoses: History of Present Illness Mr. Adams is a pleasant 66-year-old male with a history of ESRD on HD T//, DM, Afib who is currently being admitted to the hospital after a laparoscopic right hemicolectomy by Dr. Hodge. Patient underwent EGD/Colonoscopy on . Colonoscopy on 07/10/2016 showed a mass measuring 3 x 1cm in size in the ascending colon. Patient subsequently underwent lap hemicolectomy by Dr. Hodge. Mr. Adams was admitted back in Feb 2016 due to symptomatic anemia, GI bleed. EGD/Colonoscopy in Feb 2016 showed 3 polyps in cecum and ascending colon removed by snare, 2 polyps in ascending colon fulgurated nad large 2-3 cm ulcerated polypoid mass partially removed by snare. EGD w/ 1 cm polyp in body of stomach, removed by snare in addition to gastritis. Patient underwent laparoscopic segmental bowel resection for a large polyp. Pathology of the large polyp showed invasive differentiated adenocarcinoma but pathology of the bowel resection did not show any evidence of bowel resection. Medical oncology referred patient to Dr. Hodge for hemicolectomy since patient had pathological confirmed colon cancer. Currently, patient is resting well. He requests sips of water or ice chips. Denies any fever, chills. Denies any weight loss. He denies any shortness of breath, abdominal pain. Review of Systems ROS Limitations: Other (negative except as noted in the history of present illness) Past Family Social History Allergies: Coded Allergies: Demerol (Verified Allergy, Severe, HYPERTENSION, 07/09/16) Morphine (Verified Allergy, Severe, HYPERTENSION, 07/09/16) Past Medical History CAD s/p stent placement 2 years ago CHF ESRD on HD IBS Depression Anemia Hepatitis C Hypertension DM Hyperlipidemia Past Surgical History Laparoscopic cholecystectomy Tonsillectomy AV fistula placement in left arm Multiple orthopedic surgeries on shoulders, elbows, knees, ankles Reported Medications Gabapentin 100 mg by mouth 3 times a day Lamotrigine 50 mg twice a day Carvedilol 25 mg daily Diltiazem ER 240 mg daily Amlodipine 10 mg by mouth daily Januvia 25 mg by mouth daily Hydralazine 25 mg by mouth 3 times a day Atorvastatin 80 mg by mouth daily at bedtime Glargine 60 units SQ daily at bedtime Sliding scale insulin Lasix 40 mg by mouth daily Isosorbide mononitrate 120 mg by mouth twice a day Nitroglycerin 0.4 mg sublingual when necessary Sevelamer Carbonate 2400 mg by mouth 3 times a day Omeprazole 40 mg by mouth daily Calcium acetate 2001 mg by mouth 3 times a day Metolazone 5 mg by mouth daily Docusate 100 mg by mouth 3 times a day. Family History Mother: at age 70 from complications from DM Father: CAD, HTN Social History Tobacco: never Etoh: quit in 1979; reported heavy drinking for about 5 years until 1979 drinking a "gallon of moonshine, 1/5 whiskey, or 12 beers daily Illicit drug use: none Physical Exam Vital Signs Vital Signs Date Time Temp Pulse Resp B/P Pulse Ox O2 Delivery O2 Flow Rate FiO2 07/10/16 18:01 90 Nasal Cannula 3.00 07/10/16 16:00 96.7 94 18 104/55 90 07/10/16 15:45 76 18 114/59 97 Nasal Cannula 3 07/10/16 15:15 92 18 104/56 94 Nasal Cannula 3 07/10/16 15:00 89 18 106/55 94 Nasal Cannula 3 07/10/16 14:45 108 18 99/49 94 Nasal Cannula 3 07/10/16 14:30 92 18 103/60 93 Nasal Cannula 3 07/10/16 14:14 98.5 76 18 102/55 91 Nasal Cannula 3 07/10/16 09:10 98.8 112 20 121/55 95 Physical Exam GENERAL: This is a well-nourished, well-developed patient, in no apparent distress. SKIN: No rashes, ecchymoses or lesions. Warm and dry. HEAD: Atraumatic. Normocephalic. No temporal or scalp tenderness. EYES: Pupils equal round and reactive. No injection or drainage. ENT: Nose without bleeding, purulent drainage or septal hematoma. Airway patent. NECK: Trachea midline. No lymphadenopathy. Supple, nontender, no meningeal signs. CARDIOVASCULAR: Irreg Irreg without murmurs, gallops, or rubs. No JVD. RESPIRATORY: Clear to auscultation. Breath sounds equal bilaterally. No wheezes , rales, or rhonchi. GASTROINTESTINAL: Abdomen soft, non-tender, nondistended. No guarding. Right abdomen surgical wound. MUSCULOSKELETAL: Extremities without clubbing, cyanosis, or edema. NEUROLOGICAL: Awake and alert. Cranial nerves II through XII intact. No focal neurological deficits. Normal speech. Laboratory Laboratory Tests Test 07/10/16 09:05 White Blood Count 11.6 Red Blood Count 3.70 Hemoglobin 10.4 Hematocrit 31.5 Mean Corpuscular Volume 85.3 Mean Corpuscular Hemoglobin 28.2 Mean Corpuscular Hemoglobin 33.1 Concent Red Cell Distribution Width 18.6 Platelet Count 253 Mean Platelet Volume 6.9 Neutrophils (%) (Auto) 75.6 Lymphocytes (%) (Auto) 12.2 Monocytes (%) (Auto) 9.9 Eosinophils (%) (Auto) 1.7 Basophils (%) (Auto) 0.6 Neutrophils # (Auto) 8.8 Lymphocytes # (Auto) 1.4 Monocytes # (Auto) 1.1 Eosinophils # (Auto) 0.2 Basophils # (Auto) 0.1 CBC Comment DIFF FINAL Differential Comment Sodium Level 143 Potassium Level 4.1 Chloride Level 104 Carbon Dioxide Level 27.6 Anion Gap 11 Blood Urea Nitrogen 44 Creatinine 6.77 Estimat Glomerular Filtration 8 Rate Random Glucose 120 Calcium Level 9.4 Result Diagram: 07/10/1605 07/10/16 0905 Imaging Last Impressions Foot X-Ray 07/10/16 0000 Signed Impressions: Service Date/Time: Sunday, July 10, 2016 20:27 - CONCLUSION: 1. Mild degenerative changes involving the first metatarsophalangeal joint. 2. Diffuse osteopenia. 3. No acute fracture or dislocation. Marco De La Fuente MD Assessment and Plan Problem List: (1) Colon adenocarcinoma ICD Code: C18.9 Status: Acute (2) DM (diabetes mellitus) ICD Code: E11.9 Status: Acute (3) Atrial fibrillation ICD Code: I48.91 Status: Chronic (4) ESRD (end stage renal disease) ICD Code: N18.6 Status: Acute Assessment and Plan Mr. Adams is a 66 year old male with a history of DM, ESRD on HD on and previously diagnosed colonic adenocarcinoma who was admitted to the hospital today following EGD/Colonoscopy and right sided hemicolectomy. - Colon adenocarcinoma - Colonoscopy today showed 3 x 1 cm mass in the ascending colon. - Oncological surgery (Dr. Hodge) performed Lap right colectomy. - Continue [place] PRN and Dilaudid PRN - Perioperative abx with Cefazolin and Flagyl. - Alvimopan 12 mg PO Q12hrs for GI recovery. - Lovenox 30mg Q24hrs starting 07/11/2016. - ESRD - HD on , and Wednesday - Nephrology consulted to continue dialysis. - Diabetes mellitus type 2 - Blood glucose 114, 149. - Will continue sliding scale insulin. - May need to start long acting insulin - perhaps 5 to 10 units QHS. - Atrial fibrillation - [id number] score 3 (age 65-74, HTN, DM). - Patient used to be on Apixaban. When okay with surgery, we can continue Apixaban 5mg BID. - Apixaban has been on hold due to GI bleed. - Hyperlipidemia - continue Lipitor 80mg QHS. Full code. Lovenox starting 07/11/2016. Thank you for the consult. We will continue to follow this patient with you. Feliz Moore DO Jul 10, 2016 19:54
[2016-07-10 20:00] VITALS: BP 124/58; PULSE 108; RESP 21; TEMP 96.1; O2SAT 94
[2016-07-10] MEDS: SODIUM CHLORIDE 0.9% FLUSH 10 ML FLUSH IV FLUSH SCH (21:00)
--- NOTE | 2016-07-10 21:14 | RADRPT ---
EXAM DATE/TIME: 07/10/2016 20:27 [facility] COMPARISON: No previous studies available for comparison. INDICATIONS : Pain. MEDICAL HISTORY : Diabetes mellitus type II. SURGICAL HISTORY : None. ENCOUNTER: Initial ACUITY: 4 - 6 days PAIN SCORE: 5/10 LOCATION: Left foot. FINDINGS: Degenerative changes are noted involving the left first metatarsophalangeal joint. Arterial vascular calcifications are noted throughout the ankle and foot. There is no acute fracture or dislocation o f the left foot. Diffuse osteopenia is noted. CONCLUSION: 1. Mild degenerative changes involving the first metatarsophalangeal joint. 2. Diffuse osteopenia. 3. No acute fracture or dislocation. Marco De La Fuente MD on July 10, 2016 at 21:06 Board Certified Radiologist. This report was verified electronically.
[2016-07-11] VITALS (7 sets, daily range): BP systolic 111–151; BP diastolic 56–80; PULSE 85–136; RESP 19–24; TEMP 96.3–97.9; O2SAT 90–96
[2016-07-11] MEDS: ACETAMINOPHEN 1000 MG/100 ML VIAL IV SCH ×4 (01:11→20:41)
[2016-07-11] MEDS: metroNIDAZOLE 500 MG INJ 100 ML IV SCH ×2 (04:49→14:40)
[2016-07-11 06:00] LABS: AUTOMATED NEUTROPHIL # 13.4 TH/MM3 (1.8-7.7); BASOPHIL % 0.2 % (0.0-2.0); HEMO FLAGS DIFF FINAL; LYMPH % 5.6 % (9.0-44.0); LYMPHOCYTE # 0.9 TH/MM3 (1.0-4.8); MEAN CELL VOLUME 100.8 FL (80.0-100.0); MEAN CORPUSCULAR HEMOGLOBIN 35.2 PG (27.0-34.0); MEAN CORPUSCULAR HGB CONC 34.9 % (32.0-36.0); MONO % 6.8 % (0.0-8.0); NEUT % 87.4 % (16.0-70.0); PLATELET COUNT 218 TH/MM3 (150-450); RED BLOOD COUNT 2.88 MIL/MM3 (4.50-5.90); RED CELL DISTRIBUTION WIDTH 17.9 % (11.6-17.2); WHITE BLOOD COUNT 15.4 TH/MM3 (4.0-11.0)
[2016-07-11 06:23] LABS: BICARBONATE 22.2 MEQ/L (21.0-32.0); POTASSIUM 4.8 MEQ/L (3.5-5.1)
[2016-07-11] MEDS: INSULIN NovoLIN REGULAR SUPPLEMENTAL SCALE SQ SCH ×4 (06:33→20:52)
--- NOTE | 2016-07-11 07:21 | MB ---
cc: RADHA SOTO DPM DATE OF CONSULTATION: 07/10/2016 DATE OF : 1950 REASON FOR CONSULTATION Left hallux dry stable gangrene. HISTORY OF PRESENT ILLNESS The patient is a 66-year-old male who is status post laparoscopic right colectomy with Dr. Hodge, podiatry was consulted for his left hallux gangrene. The patient was seen at bedside this afternoon mildly sedated postop. He was not able to produce a significant history about his left foot and was gleaned from the medical records. PAST MEDICAL HISTORY 1. Diabetes 2. hypertension 3. hyperlipidemia. ALLERGIES DEMEROL MORPHINE PAST SURGICAL HISTORY Cholecystectomy. MEDICATIONS: 1. Gabapentin 2. Lamotrigine 3. Carvedilol 4. Diltiazem 5. Amlodipine 6. Januvia 7. Hydralazine 8. Atorvastatin 9. Glargine 10. Lasix 11. Isosorbide 12. Mononitrate 13. Nitroglycerin's 14. Omeprazole 15. Calcium acetate 16. Metolazone 17. Docusate PHYSICAL EXAMINATION Left DP and PT are diminished. CROSSING TENDER is on the hallux is elongated greater than 3 seconds. There is some mild erythema and edema. No active drainage on the left hallux. The plantar surface at the distal aspect of the hallux is necrotic, protective sensation grossly absent. Muscle strength intact plus 05/05 in all quadrants. LABORATORY FINDINGS: WBC on 07/10 1017, 16, RBC of 3.7, H&H 10.4 and 31.5. RADIOLOGIC: Left foot x-rays pending left foot MRI ASSESSMENT 1. Diabetes mellitus with neuropathy 2. Left hallux as dry stable gangrene 3. Likely PVD. PLAN 1. The patient is to obtain a vascular consult pending a #1. 2. Pending an x-ray and MRI 3. Local wound care with Betadine dry stable gangrene 4. Optimize medical management for the patient while in-house. 5. Can consider intervention for dry stable gangrene once medically stable, and any revascularization if need be. 6. We will continue to follow while in-house. Radha Soto DPM SR/olinda /8:06 PM /7:00 AM
[2016-07-11] MEDS: PANTOPRAZOLE SOD 40 MG DELAYED RELEASE TAB PO SCH (08:22)
[2016-07-11] MEDS: ALVIMOPAN 12 MG CAPSULE PO SCH ×2 (08:22→20:42)
[2016-07-11] MEDS: lamoTRIgine 25 MG TAB PO SCH ×2 (08:23→20:51)
[2016-07-11] MEDS: GABAPENTIN 100 MG CAP PO SCH ×3 (08:23→17:03)
[2016-07-11] MEDS: ONDANSETRON HCL 4 MG/2 ML VIAL IV PRN ×2 (08:36→13:42)
[2016-07-11] MEDS: SODIUM CHLORIDE 0.9% FLUSH 10 ML FLUSH IV FLUSH SCH ×2 (08:39→20:43)
--- NOTE | 2016-07-11 08:43 | PD.VS.CON ---
History of Present Illness Chief Complaint: L great toe gangrene Consult Requested by: Dr. Harper History of Present Illness 66 yo male with PAD and ESRD who is POD #1 s/p laparoscopic hemicolectomy. Looks great from that stand point. The patient notes that his L great toe has been dark for a day but also notes that when he was living in [place] <1y ago, he was offered a major LE amputation. Walks with walker because of neuropathy. No pain with toe and no rest pain. Past/Family/Social History Past Medical History HTN DM ESRD on HD TTS - L UE AVF, working well CAD Hep C CHF colon CA Past Surgical History colectomy yesterday Tavia Tonsillectomy ortho surgeries L UE AVF Home Medications Reported Medications Insulin Lispro (Human) Inj (Humalog Inj)1,000 Unit/10 Ml Vial1-9 Units SQ ACHS #1 VIAL Ref 0 Max dose at bedtime:( )units; sugars< 70,(0)units; sugars 150-199,(1)unit; sugars 200-249,(3)units; sugars 250-299,(5)units; sugars 300-349,(7)units; sugars more than 349,(9)units. 07/10/16 Sevelamer Carbonate (Renvela)800 Mg Tab2,400 Mg PO TID #90 TAB Ref 0 07/09/16 Calcium Acetate (Phosphate Binder) (Phoslo)667 Mg Cap2,001 Mg PO TID #270 CAP Ref 0 Take 3 capsules (2,001mg) three times a day with meals, take 1 capsule (667mg) with snacks 05/07/16 Omeprazole 40 Mg Cap40 Mg PO DAILY #30 CAP Ref 0 05/07/16 Nitroglycerin SL (Nitrostat SL)0.4 Mg Subl0.4 Mg SL DIRECTED PRN (CHEST PAIN ) #100 TAB.SL Ref 0 1 tablet under the tongue as needed for chest pain. Repeat every 5 minutes for a total of 3 DOSES or call 911 if NO relief. 05/07/16 Insulin Glargine Inj (Lantus Inj)100 Unit/Ml Inj60 Units SQ HS 05/07/16 Diltiazem ER 24 HR 240 Mg [id number] Mg PO DAILY #30 CAP Ref 0 03/15/16 Isosorbide Mononitrate ER 60 Mg [id number] Mg PO BID #30 TAB Ref 0 03/15/16 Metolazone 5 Mg Tab5 Mg PO DAILY #30 TAB Ref 0 02/13/16 Amlodipine 10 Mg Tab10 Mg PO DAILY #30 TAB Ref 0 02/13/16 Lamotrigine (Lamictal)25 Mg Tab50 Mg PO BID #60 TAB Ref 0 02/13/16 Sitagliptin (Januvia)25 Mg Tab25 Mg PO DAILY #30 TAB Ref 0 02/13/16 Gabapentin 100 Mg [id number] Mg PO TID #90 CAP Ref 0 02/13/16 Furosemide (Lasix)40 Mg Tab40 Mg PO DAILY #30 TAB Ref 0 02/13/16 Docusate Sodium (Colace)100 Mg [id number] Mg PO TID Ref 0 02/13/16 Carvedilol (Coreg)25 Mg Tab25 Mg PO DAILY #60 TAB Ref 0 02/13/16 Atorvastatin 80 Mg Tab80 Mg PO HS #30 TAB Ref 0 02/13/16 Hydralazine 25 Mg Tab25 Mg PO TID Ref 0 Take with a meal 02/13/16 Discontinued Reported Medications Insulin Aspart Inj (Novolog Flexpen Inj)300 Unit/3 Ml Pen2-10 Units SQ ACHS SLIDING SCALE #1 PEN Ref 0 0-70=4OZ orange juice, notify (if pt unresponsive give 1mg glucagon inj from E-kit & call 911) 71-150=0 units, 151-200=2 units, 201-250=4 units, 251-300=6 units, 301-350=8 units, 351-400=10 units, >400 notify 04/03/16 B-Complex W/ C & Folic Acid (Niya-Ann)1 Tab1 Tab PO DAILY 05/07/16 Apixaban (Eliquis)5 Mg Tab5 Mg PO BID #60 TAB Ref 0 05/07/16 Citalopram (Celexa)20 Mg Tab20 Mg PO DAILY #30 TAB Ref 0 05/07/16 Lorazepam (Ativan)0.5 Mg Tab0.5 Mg PO TID Ref 0 05/07/16 Discontinued Scripts Oxycodone-Acetaminophen (Percocet)10-325 mg Tab1 Tab PO Q4H PRN (PAIN) #14 TAB Ref 0 Prov:Karyn Tai MD 03/26/16 Coded Allergies: Demerol (Verified Allergy, Severe, HYPERTENSION, 07/09/16) Morphine (Verified Allergy, Severe, HYPERTENSION, 07/09/16) Review of Systems Constitutional: COMPLAINS OF: Night Sweats, DENIES: Fever, Chills Cardiovascular: COMPLAINS OF: Lower Extremity Edema, DENIES: Chest pain Physical Exam Vitals/I&O Date Time Temp Pulse Resp B/P Pulse Ox O2 Delivery O2 Flow Rate FiO2 07/11/16 08:00 97.9 116 20 133/65 90 07/11/16 04:00 96.8 118 19 137/69 92 07/11/16 00:00 96.8 115 19 138/62 93 07/10/16 20:00 96.1 108 21 124/58 94 07/10/16 18:01 90 Nasal Cannula 3.00 07/10/16 16:00 96.7 94 18 104/55 90 07/10/16 15:45 76 18 114/59 97 Nasal Cannula 3 07/10/16 15:15 92 18 104/56 94 Nasal Cannula 3 07/10/16 15:00 89 18 106/55 94 Nasal Cannula 3 07/10/16 14:45 108 18 99/49 94 Nasal Cannula 3 07/10/16 14:30 92 18 103/60 93 Nasal Cannula 3 07/10/16 14:14 98.5 76 18 102/55 91 Nasal Cannula 3 07/10/16 09:10 98.8 112 20 121/55 95 Neuro: Alert, oriented HEENT: NC/AT Neck: no JVD Heart: Reg rate Lungs: diminished BS B Abdomen: incisions ok, mild appropriate TTP Vascular: Palpable B femoral pulses no pedal pulses L UE AVF +thrill L hand ok Extremities: L great toe with dry gangrene and no surrounding erythema, no odor Laboratory Tests Test 07/10/16 07/11/16 09:05 04:50 White Blood Count 11.6 15.4 Red Blood Count 3.70 2.88 Hemoglobin 10.4 10.1 Hematocrit 31.5 29.0 Mean Corpuscular Volume 85.3 100.8 Mean Corpuscular Hemoglobin 28.2 35.2 Mean Corpuscular Hemoglobin 33.1 34.9 Concent Red Cell Distribution Width 18.6 17.9 Platelet Count 253 218 Mean Platelet Volume 6.9 7.0 Neutrophils (%) (Auto) 75.6 87.4 Lymphocytes (%) (Auto) 12.2 5.6 Monocytes (%) (Auto) 9.9 6.8 Eosinophils (%) (Auto) 1.7 0.0 Basophils (%) (Auto) 0.6 0.2 Neutrophils # (Auto) 8.8 13.4 Lymphocytes # (Auto) 1.4 0.9 Monocytes # (Auto) 1.1 1.0 Eosinophils # (Auto) 0.2 0.0 Basophils # (Auto) 0.1 0.0 CBC Comment DIFF FINAL DIFF FINAL Differential Comment Sodium Level 143 142 Potassium Level 4.1 4.8 Chloride Level 104 104 Carbon Dioxide Level 27.6 22.2 Anion Gap 11 16 Blood Urea Nitrogen 44 53 Creatinine 6.77 7.95 Estimat Glomerular Filtration 8 7 Rate Random Glucose 120 122 Calcium Level 9.4 9.1 Last 48 hours Impressions Foot X-Ray 07/10/16 0000 Signed Impressions: Service Date/Time: Sunday, July 10, 2016 20:27 - CONCLUSION: 1. Mild degenerative changes involving the first metatarsophalangeal joint. 2. Diffuse osteopenia. 3. No acute fracture or dislocation. Marco De La Fuente MD Assessment and Plan Plan PAD that is likely very chronic. I suspect the toe has been necrotic for some time reflective of long-standing PAD 1. ABIs and LE vein survey 2. Plan for L LE angiogram after recovery from acute post-op, likely early in week 3. Will follow Marco Sow MD FACS bed bug exterminator [facility] - [facility] V[facility] at [facility] [phone] Marco Sow MD Jul 11, 2016 08:42
--- NOTE | 2016-07-11 10:26 | RADRPT ---
EXAM DATE/TIME: 07/11/2016 09:43 [facility] COMPARISON: FOOT LEFT COMPLETE ([id number]), July 10, 2016, 20:27. INDICATIONS : Wound left great toe. MEDICAL HISTORY : Diabetes mellitus type 2. Hypertension. Cardiovascular disease. Renal insuffici ency. SURGICAL HISTORY : Coronary artery stent. ENCOUNTER: Initial ACUITY: 1 day PAIN SCORE: 5/10 LOCATION: Left foot TECHNIQUE: Multiplanar, multisequence MRI examination was performed without contrast. FINDINGS: Patient has a wound left great toe. Soft-tissue defect is evident. There is no marrow edema to suggest osteomyelitis. There is no evidence for a deep space abscess. CONCLUSION: Generalized soft-tissue swelling of the great toe without marrow edema to suggest osteomyelitis. The re is very little soft tissue covering the distal phalanx of the great toe. Jose Cisneros MD FACR on July 11, 2016 at 10:14 Board Certified Radiologist. This report was verified electronically.
[2016-07-11] MEDS ORDERED: SODIUM CHLOR 0.9% 1000 ML INJ 1,000 ML IV PRN ×3 (11:21)
[2016-07-11] MEDS ORDERED: GENTAMICIN SULFATE (DIALYSIS USE ONLY) 20 MG/2 ML VIAL IV PRN (11:30)
[2016-07-11] MEDS ORDERED: HEPARIN SODIUM - IV 10,000 UNITS/10 ML VIAL PRN (11:30)
[2016-07-11] MEDS ORDERED: cloNIDine HCL 0.1 MG TAB PO PRN (11:30)
[2016-07-11] MEDS ORDERED: MANNITOL 12.5 GM/50 ML VIAL IV PRN (11:30)
[2016-07-11] MEDS ORDERED: diphenhydrAMINE HCL 25 MG CAP PO PRN (11:30)
[2016-07-11] MEDS ORDERED: GELATIN 12 MM/7 MM FOAM TOP PRN (11:30)
[2016-07-11] MEDS ORDERED: HEPARIN SODIUM - IV 10,000 UNITS/10 ML VIAL IVF PRN (11:30)
[2016-07-11] MEDS ORDERED: NITROGLYCERIN 0.4 MG SL 25 TABS/BTL SL PRN (11:30)
[2016-07-11] MEDS ORDERED: ALBUMIN HUMAN 25% 25 GM/100 ML BAGP IV PRN (11:30)
[2016-07-11] MEDS ORDERED: ONDANSETRON HCL 4 MG/2 ML VIAL IV PRN (11:30)
[2016-07-11] MEDS ORDERED: SODIUM CHLORIDE 0.9% FLUSH 10 ML FLUSH IV FLUSH PRN (11:30)
--- NOTE | 2016-07-11 12:50 | MB ---
cc: ANDRES VALDEZ MD DATE OF CONSULTATION: 07/10/2016 REASON FOR CONSULTATION: End-stage renal disease on hemodialysis for management. HISTORY OF PRESENT ILLNESS This is a 66-year-old male with past medical history of hypertension, diabetes mellitus, atrial fibrillation, ischemic heart disease, renal disease on hemodialysis three times per week, history of irritable bowel syndrome was admitted for the GI procedure and surgery. I was called to see the patient because of for management of dialysis patient has been following with the GI and he underwent laparoscopic right colectomy because of colon cancer and colonic polyp. The patient tolerated the procedure well. He had a colonoscopy done by the GI on July 10 and it was found that he has mass measuring 3 x 1 cm in the ascending colon. The patient has some abdominal discomfort. He denies any vomiting but has some nausea also has mild shortness of breath. No chest pain. No palpitation. No history of fever. He has been on hemodialysis Wednesday, and Wednesday and following with Dr. Floyd. The patient has multiple admission and also has been discharged 2 months ago when he was admitted with chest pain. The patient was also seen by vascular surgery. Because of left great toe gangrene. PAST MEDICAL HISTORY: 1. He past medical history of hypertension 2. diabetes mellitus 3. Peripheral vascular disease 4. ischemic heart disease 5. atrial fibrillation 6. hepatitis C 7. chronic anemia 8. colonic polyps 9. Mass. 10. History of irritable bowel syndrome. PAST SURGICAL HISTORY 1. Cholecystectomy 2. Tonsillectomy. 3. Left arm AV fistula surgery 4. Multiple orthopedic surgeries. REVIEW OF SYSTEMS The patient has a history of fever. He has mild nausea. There is no vomiting and has shortness of breath and lying flat and mild abdominal discomfort. There is no history of diarrhea. No history of fever. SOCIAL HISTORY There is no history of smoking. He stopped Alcoholism in 1979. FAMILY HISTORY Noncontributory. ALLERGIES DEMEROL MORPHINE MEDICATIONS 1. Currently he is on following medications 2. Normal saline 50 mg per hour 3. twice a day. 4. Lamictal 50 mg b.i.d. 5. Amlodipine 10 mg once a day. 6. Carvedilol 25 mg daily. 7. Cardizem 180 mg once a day. 8. 40 mg daily. 9. Lipitor 80 mg q.h.s. 10. Entereg 10 mg q. 12-hour. 11. Lovenox 30 mg Subcu as needed 4-hour. 12. Acetaminophen injection 1 gram q. 6-hour. 13. Metronidazole 500 mg IV q. 8-hour. 14. Insulin sliding scale 15. Gabapentin 16. Dilaudid as needed. PHYSICAL EXAMINATION IN GENERAL: The patient is awake, alert. He is currently on hemodialysis was last blood pressure is 133/65 temperature 97.9, oxygen saturation was measured 92% on 3 liters nasal cannula. HEAD, EYES, EARS, NOSE, AND THROAT: Pupils equal, round, reactive to light. Nonicteric. Conjunctiva pink supple. JVD is not elevated. LUNGS: The patient has bilateral decreased air entry with occasional wheezing. HEART: S1, S2, regular rhythm. ABDOMEN: Distended, bowel sounds positive but sluggish. There is mild tenderness. EXTREMITIES: He has 1+ edema. LABORATORY FINDINGS: Investigation WBC count is 15.4, hemoglobin 10.1, platelet count 218, neutrophils 87.4%, sodium 142, potassium 4.8, chloride 104, bicarb 22.2, BUN 53. His 7.95, glucose 122, INR is 1.1. IMAGING STUDIES The patient has MRI of the foot done which shows generalized soft tissue swelling. There is soft tissue covering the distal pharynx of the great toe foot x-ray was done which shows mild degenerative changes. There is diffuse osteopenia no acute fracture or dislocation. ASSESSMENT/PLAN 1. Post colonoscopy and laparoscopic surgery 2. Peripheral vascular disease. 3. End-stage renal disease on hemodialysis. 4. Diabetes mellitus 5. Anemia 6. Atrial fibrillation. 7. Patient has to the laparoscopy done and is currently getting antibiotic. He is still n.p.o. and getting IV fluids once he starts taking by mouth and IV fluid should be stopped. His hemoglobin is 10.1 and he is getting dialysis now. We will resume his Epogen with dialysis and uses 2.0 K and remove fluid as tolerated. Thank you for the consultation. MD SYDNI Banks/olinda /11:19 AM /12:26 PM
[2016-07-11] MEDS: EPOETIN ALFA 10,000 UNITS/ML VIAL IV PRN (13:42)
[2016-07-11] MEDS: ISOSORBIDE MONONITRATE 60 MG TAB PO SCH ×2 (14:34→20:42)
[2016-07-11] MEDS: ENOXAPARIN SODIUM 30 MG/0.3 ML SYRINGE SQ SCH (14:34)
[2016-07-11] MEDS: DILTIAZEM-CD 180 MG CAP ER PO SCH (14:34)
[2016-07-11] MEDS: CARVEDILOL 12.5 MG TAB PO SCH (14:34)
[2016-07-11] MEDS: SODIUM CHLOR 0.9% 1000 ML INJ 1,000 ML IV SCH (14:43)
[2016-07-11] MEDS: HYDROmorphone HCL PF 1 MG/ML VIAL IV PRN (14:48)
--- NOTE | 2016-07-11 14:51 | HHI.PR ---
Subjective Remarks Still complaining of a non-the right flank and lower quadrant, no shortness of breath or chest pain or fever or chills, denied passing gas or stool Objective Vitals Vital Signs Date Time Temp Pulse Resp B/P Pulse Ox O2 Delivery O2 Flow Rate FiO2 07/11/16 14:30 96.3 136 24 151/80 94 07/11/16 08:21 92 07/11/16 08:00 97.9 116 20 133/65 90 07/11/16 04:00 96.8 118 19 137/69 92 07/11/16 00:00 96.8 115 19 138/62 93 07/10/16 20:00 96.1 108 21 124/58 94 07/10/16 18:01 90 Nasal Cannula 3.00 07/10/16 16:00 96.7 94 18 104/55 90 07/10/16 15:45 76 18 114/59 97 Nasal Cannula 3 07/10/16 15:15 92 18 104/56 94 Nasal Cannula 3 07/10/16 15:00 89 18 106/55 94 Nasal Cannula 3 I/O 07/10/16 07/10/16 07/10/16 07/11/16 07/11/16 07/11/16 07:00 15:00 23:00 07:00 15:00 23:00 Intake Total 1200 ml 509 ml 550 ml 0 ml Output Total 5 ml 100 ml 3050 ml Balance 1195 ml 509 ml 450 ml -3050 ml Intake Oral 0 ml 0 ml 0 ml IV Total 109 ml 550 ml Other 1200 ml 400 ml Output Urine Total 100 ml 50 ml Hemodialysis 3000 ml Estimated Blood Loss 5 ml # Voids 0 # Bowel Movements 0 1 1 Result Diagram: 07/11/16 0450 07/11/16 0450 Objective Remarks GENERAL: This is a well-nourished, well-developed patient, in no apparent distress. CARDIOVASCULAR: Regular rate and rhythm without murmurs, gallops, or rubs. RESPIRATORY: Clear to auscultation. Breath sounds equal bilaterally. No wheezes , rales, or rhonchi. GASTROINTESTINAL: Abdomen soft, non-tender, nondistended. Imaged bowel sounds, surgical wound in gauze MUSCULOSKELETAL: Extremities without clubbing, cyanosis, or edema. NEURO: Alert & Oriented x4 to person, place, time, situation. Moves all ext x4 A/P Problem List: (1) Colon adenocarcinoma ICD Code: C18.9 Status: Acute (2) DM (diabetes mellitus) ICD Code: E11.9 Status: Acute (3) Atrial fibrillation ICD Code: I48.91 Status: Chronic (4) ESRD (end stage renal disease) ICD Code: N18.6 Status: Acute Assessment and Plan 07/11: Continue following with surgery, CBC in a.m. still no bowel movement or flatus Mr. Adams is a 66 year old male with a history of DM, ESRD on HD on and previously diagnosed colonic adenocarcinoma who was admitted to the hospital today following EGD/Colonoscopy and right sided hemicolectomy. - Colon adenocarcinoma - Colonoscopy today showed 3 x 1 cm mass in the ascending colon. - Oncological surgery (Dr. Hodge) performed Lap right colectomy. - Continue [place] PRN and Dilaudid PRN - Perioperative abx with Cefazolin and Flagyl. - Alvimopan 12 mg PO Q12hrs for GI recovery. - Lovenox 30mg Q24hrs starting 07/11/2016. - ESRD - HD on , and Wednesday - Nephrology consulted to continue dialysis. - PAD with L toe gangrene: - [facility] & podiatry consulted - plan for CTA work up and podiatry intervention for the toe after recovery mostly next week - Diabetes mellitus type 2 - Blood glucose 114, 149. - Will continue sliding scale insulin. - May need to start long acting insulin - perhaps 5 to 10 units QHS. - Atrial fibrillation - [id number] score 3 (age 65-74, HTN, DM). - Patient used to be on Apixaban. When okay with surgery, we can continue Apixaban 5mg BID. - Apixaban has been on hold due to GI bleed. - Hyperlipidemia - continue Lipitor 80mg QHS. Full code. Lovenox starting 07/11/2016. Problem Qualifiers (1) Atrial fibrillation: Qualified Code: I48.2 - Chronic atrial fibrillation Karol Amezcua MD Jul 11, 2016 14:51
--- NOTE | 2016-07-11 15:18 | OTSOAPIP ---
TIME SESSION COMPLETED: AM & PM TREATMENT TIME: 0 MINS. CHART REVIEWED. ATTEMPTED TO SEE FOR OT ASSESSMENT AND BOTH TIME PT REMAINED OFF FLOOR FOR MRI. WILL FOLLOW NEXT DAY. Therapist: GINI CUNNINGHAM OT/Aiden Signature on file
--- NOTE | 2016-07-11 20:10 | RADRPT ---
EXAM DATE/TIME: 07/11/2016 16:56 [facility] COMPARISON: No previous studies available for comparison. INDICATIONS : Bypass surgery. MEDICAL HISTORY : Congestive heart failure. Gastroesophageal reflux disease. Hypercholesterolemia. Cerebrovascular acci dent. Migraines. Hypertension. Coronary artery disease. Afib. Ulcer. GI bleed. Inflammatory bowel dis ease. End stage renal disease. Dialysis. Arthritis. Diabetes. Hepatitis C. Bipolar disorder. Anemia. Hyperparathyroid disease. Colon cancer. Blood transfusion. Measles. Cataracts. Macular degeneration. SURGICAL HISTORY : Tonsillectomy.Cholecystectomy. Coronary artery stent.AV shunt. Shoulder surgery. Elbow surgery. Knee surgery. Ankle surgery. ENCOUNTER: Initial ACUITY: 1 day PAIN SCORE: 5/10 LOCATION: Bilateral legs. TECHNIQUE: Venous ultrasound of the left and right leg was performed from the inguinal ligament to the proximal calf. Real-time, color Doppler and spectral tracing, compression and augmentation techniques were us ed. FINDINGS: RIGHT LEG: There is normal compressibility of the deep venous system from the inguinal region to the proximal ca lf. No echogenic clot is seen in the lumen of the common femoral, femoral, popliteal, and posterior tibial veins. There is a normal response of the venous system to proximal and distal augmentation an d respiration. LEFT LEG: There is normal compressibility of the deep venous system from the inguinal region to the proximal ca lf. No echogenic clot is seen in the lumen of the common femoral, femoral, popliteal, and posterior tibial veins. There is a normal response of the venous system to proximal and distal augmentation an d respiration. The stoma of a popliteal cyst measuring 6.1 x 4.0 x 2.4 cm. No surrounding flow seen by color Doppler. CONCLUSION: 1. The study is negative for deep venous thrombosis bilateral lower extremity. 2. 6 cm left popliteal cyst. Chu Collier MD on July 11, 2016 at 20:06 Board Certified Radiologist. This report was verified electronically.
[2016-07-11] MEDS: ATORVASTATIN 80 MG TAB PO SCH (20:42)
[2016-07-12] VITALS: BP 129/58; PULSE 88; RESP 18; TEMP 98.1; O2SAT 95
[2016-07-12] MEDS: ACETAMINOPHEN 1000 MG/100 ML VIAL IV SCH ×2 (03:00→09:07)
[2016-07-12] MEDS: SODIUM CHLOR 0.9% 1000 ML INJ 1,000 ML IV SCH (06:05)
--- NOTE | 2016-07-12 06:53 | RADRPT ---
EXAM DATE/TIME: 07/11/2016 17:13 [facility] COMPARISON: No previous studies available for comparison. INDICATIONS : Bypass surgery. MEDICAL HISTORY : Congestive heart failure. Hypercholesterolemia. Gastroesophageal reflux diseas e. Cerebrovascular accident. Migraines. Hypertension. Coronary artery disease. Afib. Ulcer. GI bleed. Inflammatory bowel disease. End stage renal disease. Dialysis. Arthritis. Diabetes. Hepatitis C. Bip olar disorder. Anemia. Hyperparathyroid disease. Colon cancer. Blood transfusion. Measles. Cataracts. Macular degeneration. SURGICAL HISTORY : Tonsillectomy. Cholecystectomy. Coronary artery stent. AV shunt. Shoulder surg rhonda. Elbow surgery. Knee surgery. Ankle surgery. ENCOUNTER: Initial ACUITY: 1 day PAIN SCORE: 5/10 LOCATION: Bilateral legs. GREATER SAPHENOUS VEIN THIGH: PROXIMAL: Right 5 mm Left 6 mm MID: Right 3 mm Left 6 mm DISTAL: Right 5 mm Left 6 mm CALF: PROXIMAL: Right 3 mm Left 4 mm MID: Right 2 mm Left 3 mm DISTAL: Right 3 mm Left 3 mm FINDINGS: The venous system of the lower extremities are patent by color Doppler imaging. Measurements of the leg veins (in mm) are listed above. CONCLUSION: Venous mapping as described above. Jose Cisneros MD FACR on July 12, 2016 at 6:51 Board Certified Radiologist. This report was verified electronically.
[2016-07-12] MEDS: INSULIN NovoLIN REGULAR SUPPLEMENTAL SCALE SQ SCH ×4 (07:00→22:29)
[2016-07-12 08:00] VITALS: BP 136/60; PULSE 95; RESP 18; TEMP 97.8; O2SAT 94
[2016-07-12] MEDS: CARVEDILOL 12.5 MG TAB PO SCH (09:00)
[2016-07-12] MEDS: SODIUM CHLORIDE 0.9% FLUSH 10 ML FLUSH IV FLUSH SCH ×2 (09:00→20:27)
[2016-07-12] MEDS: DILTIAZEM-CD 180 MG CAP ER PO SCH (09:08)
[2016-07-12] MEDS: PANTOPRAZOLE SOD 40 MG DELAYED RELEASE TAB PO SCH (09:08)
[2016-07-12] MEDS: ISOSORBIDE MONONITRATE 60 MG TAB PO SCH ×2 (09:08→20:27)
[2016-07-12] MEDS: ALVIMOPAN 12 MG CAPSULE PO SCH ×2 (09:08→20:27)
[2016-07-12] MEDS: GABAPENTIN 100 MG CAP PO SCH ×3 (09:12→16:51)
[2016-07-12] MEDS: lamoTRIgine 25 MG TAB PO SCH ×2 (09:16→20:27)
--- NOTE | 2016-07-12 10:49 | HHI.PR ---
Subjective Remarks sitting on the chair , he is very poor historian , while examining him the phone rang and he wanted to answer , so he did , and he looked not comfortable talking on the phone then he asked me to talk to his roomate " as he said , i was not sure if he really wanted me to deliver info or he was not fully oriented so i told him w need to finish the exam first then we will discuss delivering info to your roomoate later on i d/w the nurse , she told me that pt some times act little strange , like this am he has a bm but he was not aware that indeed he did a large bm , for that reson i did not agree to deliver the pt info since i was not sure if he was competant at that moment when he was asked to pass the phone to me in general he seems to be doing better , in nad , large BM per the nurse today he will be [facility]/up possibly Wednesday Objective Vitals Vital Signs Date Time Temp Pulse Resp B/P Pulse Ox O2 Delivery O2 Flow Rate FiO2 07/12/16 00:00 98.1 88 18 129/58 95 07/11/16 20:00 96.3 85 20 135/65 96 07/11/16 16:00 97.8 108 20 111/56 94 07/11/16 14:30 96.3 136 24 151/80 94 I/O 07/11/16 07/11/16 07/11/16 07/12/16 07/12/16 07/12/16 07:00 15:00 23:00 07:00 15:00 23:00 Intake Total 550 ml 0 ml 778 ml 918 ml Output Total 100 ml 3050 ml 100 ml Balance 450 ml -3050 ml 778 ml 818 ml Intake Oral 0 ml 0 ml 480 ml 480 ml IV Total 550 ml 298 ml 438 ml Output Urine Total 100 ml 50 ml 100 ml Hemodialysis 3000 ml # Voids 0 # Bowel Movements 1 1 0 1 Result Diagram: 07/11/160 07/11/16 0450 Objective Remarks GENERAL: This is a well-nourished, well-developed patient, in no apparent distress. CARDIOVASCULAR: Regular rate and rhythm without murmurs, gallops, or rubs. RESPIRATORY: Clear to auscultation. Breath sounds equal bilaterally. No wheezes , rales, or rhonchi. GASTROINTESTINAL: Abdomen soft, non-tender, nondistended. Imaged bowel sounds, surgical wound in gauze MUSCULOSKELETAL: Extremities without clubbing, cyanosis, or edema. NEURO: Alert & Oriented x4 to person, place, time, situation. Moves all ext x4 A/P Problem List: (1) Colon adenocarcinoma ICD Code: C18.9 Status: Acute (2) DM (diabetes mellitus) ICD Code: E11.9 Status: Acute (3) Atrial fibrillation ICD Code: I48.91 Status: Chronic (4) ESRD (end stage renal disease) ICD Code: N18.6 Status: Acute Assessment and Plan 07/11: Continue following with surgery, CBC in a.m. still no bowel movement or flatus 07/12 : large bm today , ff with GS, [facility] for further w/up on wednesday Mr. Adams is a 66 year old male with a history of DM, ESRD on HD on and previously diagnosed colonic adenocarcinoma who was admitted to the hospital today following EGD/Colonoscopy and right sided hemicolectomy. - Colon adenocarcinoma - Colonoscopy today showed 3 x 1 cm mass in the ascending colon. - Oncological surgery (Dr. Hodge) performed Lap right colectomy. - Continue [place] PRN and Dilaudid PRN - Perioperative abx with Cefazolin and Flagyl. - Alvimopan 12 mg PO Q12hrs for GI recovery. - Lovenox 30mg Q24hrs starting 07/11/2016. - ESRD - HD on , and Wednesday - Nephrology consulted to continue dialysis. - Diabetes mellitus type 2 - Blood glucose 114, 149. - Will continue sliding scale insulin. - May need to start long acting insulin - perhaps 5 to 10 units QHS. - Atrial fibrillation - [id number] score 3 (age 65-74, HTN, DM). - Patient used to be on Apixaban. When okay with surgery, we can continue Apixaban 5mg BID. - Apixaban has been on hold due to GI bleed. - PAD with L toe gangrene: - CVS & podiatry consulted - plan for CTA work up and podiatry intervention for the toe after recovery mostly next week - Hyperlipidemia - continue Lipitor 80mg QHS. Full code. Lovenox starting 07/11/2016. Problem Qualifiers (1) Atrial fibrillation: Qualified Code: I48.2 - Chronic atrial fibrillation Karol Amezcua MD Jul 12, 2016 10:49
--- NOTE | 2016-07-12 11:26 | HHI.NPPN ---
Subjective History of Present Illness 66-year-old male with past medical history of hypertension, diabetes mellitus, atrial fibrillation, ischemic heart disease, renal disease on hemodialysis three times per week, history of irritable bowel syndrome was admitted for the GI procedure and surgery. I was called to see the patient because of for management of dialysis. Additional Remarks Patient is alert, sitting on chair, has mild abd. pain, no SOB, on room air. Review of Systems General Constitutional: Fatigue Gastrointestinal Gastrointestinal: Abdominal Pain, Nausea & Vomiting Objective Data Data 07/11/16 07/12/16 19:00 07:00 Intake Total 0 ml 1696 ml Output Total 3050 ml 100 ml Balance -3050 ml 1596 ml Intake Oral 0 ml 960 ml IV Total 736 ml Output Urine Total 50 ml 100 ml Hemodialysis 3000 ml # Voids 0 # Bowel Movements 1 1 Vital Signs Date Time Temp Pulse Resp B/P Pulse Ox O2 Delivery O2 Flow Rate FiO2 07/12/16 08:00 97.8 95 18 136/60 94 07/12/16 00:00 98.1 88 18 129/58 95 07/11/16 20:00 96.3 85 20 135/65 96 07/11/16 16:00 97.8 108 20 111/56 94 07/11/16 14:30 96.3 136 24 151/80 94 -: 07/11/16 0450 07/11/16 0450 Physical Exam General Appearance: Well Nourished, No Acute Distress, Comfortable Eyes Eye Exam: Pupils Equal Neck Neck Exam: Neck Supple, Trachea Midline Pulmonary Resp Exam: Breath Sounds Equal, No Distress, Decreased Bases Cardiology CV Exam: Regular, Normal Sinus Rhythm Gastrointestinal/Abdomen GI Exam: Soft, Bowel Sounds Present, Distended Extremeties Extremities Exam: Trace Edema Neurologic Neuro Exam: Alert, Awake, Oriented Psychiatric Psych Exam: Appropriate Responses Assessment/Plan Assessment Summary: Anemia of CKD, Hypertension, End Stage Renal Disease Problem List: (1) Anemia (2) Hypertension (3) Abdominal pain (4) Colonic polyp (5) Atrial fibrillation (6) ESRD on hemodialysis Plan Patient has HD done yesterday and 3 liters removed. Tolerated it well. Now started on Diet. Will D/C the IVF. HD to continue TTS. On Epogen for anemia. Dr. Floyd will follow from AM. Problem Qualifiers (1) Anemia: (2) Atrial fibrillation: Qualified Code: I48.2 - Chronic atrial fibrillation Agatha Topete MD Jul 12, 2016 11:26
[2016-07-12] MEDS: ENOXAPARIN SODIUM 30 MG/0.3 ML SYRINGE SQ SCH (11:58)
[2016-07-12 12:00] VITALS: BP 93/49; PULSE 98; RESP 18; TEMP 97.4; O2SAT 92
--- NOTE | 2016-07-12 12:21 | HHI.PR ---
Subjective Subjective Notes no acute issues, pain controlled, multiple large bms Objective Vitals/I&O Vital Signs Date Time Temp Pulse Resp B/P Pulse Ox O2 Delivery O2 Flow Rate FiO2 07/12/16 08:00 97.8 95 18 136/60 94 07/10/16 18:01 Nasal Cannula 3.00 Cardiovascular: Regular Abdomen: Other (soft mild ttp, incisions c/d/i) A/P Assessment and Plan POD 2 Right hemicolectomy PLAN C/W renal diet oob with walker med mgnt HD per nephro left foot mgnt per Pino Kenney MD Jul 12, 2016 12:21
--- NOTE | 2016-07-12 12:31 | PD.POD ---
Subjective Podiatric Problems Left hallux gangrene. PVD Pain scale used: 0-10 numeric scale Pain score: 0 Past Med/Surg/Social History Social History Smoking Status: Never Smoker Objective Vital Signs Vital Signs Date Time Temp Pulse Resp B/P Pulse Ox O2 Delivery O2 Flow Rate FiO2 07/12/16 08:00 97.8 95 18 136/60 94 07/12/16 00:00 98.1 88 18 129/58 95 07/11/16 20:00 96.3 85 20 135/65 96 07/11/16 16:00 97.8 108 20 111/56 94 07/11/16 14:30 96.3 136 24 151/80 94 Coded Allergies: Demerol (Verified Allergy, Severe, HYPERTENSION, 07/09/16) Morphine (Verified Allergy, Severe, HYPERTENSION, 07/09/16) Other Results Laboratory Tests Test 07/11/16 04:50 White Blood Count 15.4 TH/MM3 Red Blood Count 2.88 MIL/MM3 Hemoglobin 10.1 GM/DL Hematocrit 29.0 % Mean Corpuscular Volume 100.8 FL Mean Corpuscular Hemoglobin 35.2 PG Mean Corpuscular Hemoglobin 34.9 % Concent Red Cell Distribution Width 17.9 % Platelet Count 218 TH/MM3 Mean Platelet Volume 7.0 FL Neutrophils (%) (Auto) 87.4 % Lymphocytes (%) (Auto) 5.6 % Monocytes (%) (Auto) 6.8 % Eosinophils (%) (Auto) 0.0 % Basophils (%) (Auto) 0.2 % Neutrophils # (Auto) 13.4 TH/MM3 Lymphocytes # (Auto) 0.9 TH/MM3 Monocytes # (Auto) 1.0 TH/MM3 Eosinophils # (Auto) 0.0 TH/MM3 Basophils # (Auto) 0.0 TH/MM3 CBC Comment DIFF FINAL Differential Comment Sodium Level 142 MEQ/L Potassium Level 4.8 MEQ/L Chloride Level 104 MEQ/L Carbon Dioxide Level 22.2 MEQ/L Anion Gap 16 MEQ/L Blood Urea Nitrogen 53 MG/DL Creatinine 7.95 MG/DL Estimat Glomerular Filtration 7 ML/MIN Rate Random Glucose 122 MG/DL Calcium Level 9.1 MG/DL Physical Exam Details LLE Left hallux dry stable gangrene.Left hallux erythema. Diminished pulses. Protective sensation absent. ROM intact and muscle strength is +5/5 Assessment & Plan Diagnosis: (1) Toe gangrene Status: Acute (2) Type 2 diabetes mellitus Status: Chronic A/P Dr Sow is planing revascularization once medically stable. Plan for left hallux partial amputation once stable. Continue with Betadine daily. Dr Hussein begin coverage on 07/13/16 Radha Soto DPM Jul 12, 2016 12:31
[2016-07-12 15:44] LABS: AUTOMATED NEUTROPHIL # 10.9 TH/MM3 (1.8-7.7); BASOPHIL % 0.1 % (0.0-2.0); EOSINOPHIL # 0.1 TH/MM3 (0-0.4); EOSINOPHIL % 0.9 % (0.0-4.0); HEMATOCRIT 28.8 % (39.0-51.0); HEMO FLAGS DIFF FINAL; LYMPH % 8.1 % (9.0-44.0); LYMPHOCYTE # 1.1 TH/MM3 (1.0-4.8); MEAN CELL VOLUME 85.8 FL (80.0-100.0); MEAN CORPUSCULAR HEMOGLOBIN 27.8 PG (27.0-34.0); MEAN CORPUSCULAR HGB CONC 32.4 % (32.0-36.0); MONO % 9.5 % (0.0-8.0); NEUT % 81.4 % (16.0-70.0); PLATELET COUNT 212 TH/MM3 (150-450); RED BLOOD COUNT 3.36 MIL/MM3 (4.50-5.90); RED CELL DISTRIBUTION WIDTH 17.9 % (11.6-17.2); WHITE BLOOD COUNT 13.4 TH/MM3 (4.0-11.0)
[2016-07-12 16:00] VITALS: BP 110/53; PULSE 96; RESP 16; TEMP 97.6; O2SAT 91
[2016-07-12 16:11] LABS: BICARBONATE 28.2 MEQ/L (21.0-32.0); POTASSIUM 4.1 MEQ/L (3.5-5.1)
[2016-07-12 20:00] VITALS: BP 111/56; PULSE 86; RESP 20; TEMP 99.8; O2SAT 93
[2016-07-12] MEDS: ATORVASTATIN 80 MG TAB PO SCH (20:27)
--- NOTE | 2016-07-12 22:59 | RADRPT ---
EXAM DATE/TIME: 07/11/2016 00:00 [facility] COMPARISON: No previous studies available for comparison. INDICATIONS : LEFT GREAT TOE GANGRENE TECHNIQUE: Four-cuff ankle and brachial pressures were obtained. Pulse cuff waveform tracings of the ankles were recorded, and ankle-brachial indices were calculated. PRESSURES (mmHg): Brachial (arm): Right 103 Left FISTULA Ankle: Right CNO > 247 Left CNO > 247 AIDE: Right CNO Left CNO TBI: Right 0.50 Left 0.68 PULSED CUFF WAVEFORMS: Biphasic waveforms at the ankles bilaterally. CONCLUSION: Inability to occlude the vessels at the ankles results in inability to calculate an AIDE. There is red uction of the toe brachial indices bilaterally. This is minimal on the left and mild on the right. Chu Leija Jr., MD on July 12, 2016 at 22:54 Board Certified Radiologist. This report was verified electronically.
[2016-07-13] VITALS: BP 142/65; PULSE 86; RESP 20; TEMP 99.2; O2SAT 93
[2016-07-13 04:00] VITALS: BP 115/54; PULSE 95; RESP 18; TEMP 97.8; O2SAT 93
[2016-07-13] MEDS: INSULIN NovoLIN REGULAR SUPPLEMENTAL SCALE SQ SCH ×4 (06:38→22:04)
[2016-07-13 08:00] VITALS: BP 131/63; PULSE 88; RESP 18; TEMP 98.1; O2SAT 94
[2016-07-13] MEDS: ALVIMOPAN 12 MG CAPSULE PO SCH ×2 (09:15→21:57)
[2016-07-13] MEDS: PANTOPRAZOLE SOD 40 MG DELAYED RELEASE TAB PO SCH (09:15)
[2016-07-13] MEDS: CARVEDILOL 12.5 MG TAB PO SCH (09:15)
[2016-07-13] MEDS: lamoTRIgine 25 MG TAB PO SCH ×2 (09:15→22:03)
[2016-07-13] MEDS: DILTIAZEM-CD 180 MG CAP ER PO SCH (09:16)
[2016-07-13] MEDS: SODIUM CHLORIDE 0.9% FLUSH 10 ML FLUSH IV FLUSH SCH ×2 (09:16→21:57)
[2016-07-13] MEDS: GABAPENTIN 100 MG CAP PO SCH ×3 (09:16→16:24)
[2016-07-13] MEDS: ISOSORBIDE MONONITRATE 60 MG TAB PO SCH ×2 (09:19→21:58)
[2016-07-13] MEDS ORDERED: SEVELAMER CARBONATE 800 MG TAB PO ONE (09:30)
--- NOTE | 2016-07-13 09:59 | HHI.NPPN ---
Subjective Complaints: Obesity General Problems: Edema, Hypertension Renal Failure: Chronic, End Stage Renal Disease Interval History Sitting up in chair. Has had bowel movement, complaining of rectal pain. ( Skyla Hernandez) Review of Systems General Constitutional: Fatigue (Skyla Hernandez) Gastrointestinal GI Remarks rectal pain (Skyla Hernandez) Objective Data Data 07/12/16 07/13/16 19:00 07:00 Intake Total 480 ml 480 ml Output Total 0 ml Balance 480 ml 480 ml Intake Oral 480 ml 480 ml Output Urine Total 0 ml # Voids 0 # Bowel Movements 1 0 Vital Signs Date Time Temp Pulse Resp B/P Pulse Ox O2 Delivery O2 Flow Rate FiO2 07/13/16 08:00 98.1 88 18 131/63 94 07/13/16 04:00 97.8 95 18 115/54 93 07/13/16 00:00 99.2 86 20 142/65 93 07/12/16 20:00 99.8 86 20 111/56 93 07/12/16 16:00 97.6 96 16 110/53 91 07/12/16 12:00 97.4 98 18 93/49 92 (Skyla Hernandez) -: 07/12/16 1450 07/12/16 1450 Physical Exam General Appearance: Well Nourished, No Acute Distress, Comfortable (Skyla Hernandez) Eyes Eye Exam: Pupils Equal (Skyla Hernandez) Neck Neck Exam: Neck Supple, Trachea Midline (Skyla Hernandez) Pulmonary Resp Exam: Clear Bilaterally, Breath Sounds Equal, No Distress, Decreased Bases (Skyla Hernandez) Cardiology CV Exam: Regular, Normal Sinus Rhythm (Skyla Hernandez) Gastrointestinal/Abdomen GI Exam: Soft, Bowel Sounds Present, Distended GI Remarks morbidly obese laparoscopic incisions with james in place (Skyla Hernandez) Musculoskeletal MS Exam: Joints Intact, Normal Tone (Skyla Hernandez) Extremeties Extremities Exam: Trace Edema Extremeties Remarks weak pedal pulses bilaterally (Skyla Hernandez) Neurologic Neuro Exam: Alert, Awake, Oriented, Moving All Extremities (Skyla Hernandez) Psychiatric Psych Exam: Appropriate Responses (Skyla Hernandez) Assessment/Plan Discussed Condition With: Patient Assessment Summary: Anemia of CKD, Hypertension, End Stage Renal Disease Problem List: (1) ESRD on hemodialysis Plan: HD per TTS schedule, he is due tomorrow no acute renal concerns repeat renal panel in am his AVF has good thrill/bruit renal diet no protein restriction (2) Anemia Plan: epogen with dialysis (3) Colonic polyp Plan: s/p laparoscopic right hemicolectomy with appendectomy on 07/11 he is doing well postoperatively appreciate surgery recommendations (4) Toe gangrene Plan: vascular has evaluated, long standing hx of PAD, has neuropathy bilaterally plans for LLE angiogram possible revascularization this week noted to have absent pedal pulses bilaterally (5) Hypertension Plan: continue home medications BP is acceptable (6) Atrial fibrillation Plan: rate controlled on Lovenox, his Eliquis has not been resumed (Skyla Hernandez) Plan patient was seen and examined. Dialysis will be tomorrow. Being followed by vascular surgery for ischemic changes on the left foot. Angiogram is planned later this week. (Doni Floyd MD) Problem Qualifiers (1) Anemia: (2) Atrial fibrillation: Qualified Code: I48.2 - Chronic atrial fibrillation Skyla Hernandez Jul 13, 2016 09:59 Dnoi lFoyd MD Jul 13, 2016 14:01
[2016-07-13] MEDS: ENOXAPARIN SODIUM 30 MG/0.3 ML SYRINGE SQ SCH (11:44)
[2016-07-13 12:00] VITALS: BP 123/86; PULSE 80; RESP 17; TEMP 98.4; O2SAT 94
--- NOTE | 2016-07-13 12:25 | PD.VS.PN ---
Subjective Subjective/Hospital Course Pt OOB and sitting in chair Pt without complaints Pt reported left great toe has been discolored for an unknown amount of time Pt appears to be a poor historian Objective Vitals/I&O Date Time Temp Pulse Resp B/P Pulse Ox O2 Delivery O2 Flow Rate FiO2 07/13/16 08:00 98.1 88 18 131/63 94 07/13/16 04:00 97.8 95 18 115/54 93 07/13/16 00:00 99.2 86 20 142/65 93 07/12/16 20:00 99.8 86 20 111/56 93 07/12/16 16:00 97.6 96 16 110/53 91 07/13/16 07/13/16 07/13/16 07:00 15:00 23:00 Intake Total 240 ml Balance 240 ml Physical Exam GENERAL: Alert in nad, pleasant 66/M SKIN: Warm and dry. Left great toe presents with dry gangrene, no odor, drainage or swelling noted NECK: Supple, No JVD CARDIOVASCULAR: RRR, +S1, S2 RESPIRATORY: Breath sounds equal and clear bilaterally. No accessory muscle use. GASTROINTESTINAL: Abdomen soft, non-tender, nondistended. MUSCULOSKELETAL: No cyanosis, or edema. +PT/DP Left foot with Monophasic signals heard via doppler Bilat feet warm Laboratory Laboratory Tests Test 07/12/16 14:50 White Blood Count 13.4 Red Blood Count 3.36 Hemoglobin 9.3 Hematocrit 28.8 Mean Corpuscular Volume 85.8 Mean Corpuscular Hemoglobin 27.8 Mean Corpuscular Hemoglobin 32.4 Concent Red Cell Distribution Width 17.9 Platelet Count 212 Mean Platelet Volume 7.2 Neutrophils (%) (Auto) 81.4 Lymphocytes (%) (Auto) 8.1 Monocytes (%) (Auto) 9.5 Eosinophils (%) (Auto) 0.9 Basophils (%) (Auto) 0.1 Neutrophils # (Auto) 10.9 Lymphocytes # (Auto) 1.1 Monocytes # (Auto) 1.3 Eosinophils # (Auto) 0.1 Basophils # (Auto) 0.0 CBC Comment DIFF FINAL Differential Comment Sodium Level 135 Potassium Level 4.1 Chloride Level 96 Carbon Dioxide Level 28.2 Anion Gap 11 Blood Urea Nitrogen 48 Creatinine 7.52 Estimat Glomerular Filtration 7 Rate Random Glucose 174 Calcium Level 8.5 Assessment and Plan Plan Continuing to follow Planning for chong LORD angiogram after recovery, potentially early this week Yaneth ZUNIGA [facility] [phone] Yaneth Magaña Jul 13, 2016 12:25
--- NOTE | 2016-07-13 15:41 | HHI.PR ---
Subjective Remarks Patient sitting on the chair, nurse at the bedside, he is pleasant, awake alert oriented Denied pain or fever or chills Awaiting podiatry and vascular surgeon for further intervention and workup on his lower extremity and left toe Objective Vitals Vital Signs Date Time Temp Pulse Resp B/P Pulse Ox O2 Delivery O2 Flow Rate FiO2 07/13/16 12:00 98.4 80 17 123/86 94 07/13/16 08:00 98.1 88 18 131/63 94 07/13/16 04:00 97.8 95 18 115/54 93 07/13/16 00:00 99.2 86 20 142/65 93 07/12/16 20:00 99.8 86 20 111/56 93 07/12/16 16:00 97.6 96 16 110/53 91 I/O 07/12/16 07/12/16 07/12/16 07/13/16 07/13/16 07/13/16 07:00 15:00 23:00 07:00 15:00 23:00 Intake Total 918 ml 480 ml 240 ml 240 ml 1560 ml Output Total 100 ml 0 ml Balance 818 ml 480 ml 240 ml 240 ml 1560 ml Intake Oral 480 ml 480 ml 240 ml 240 ml 1560 ml IV Total 438 ml Output Urine Total 100 ml 0 ml # Voids 0 0 1 # Bowel Movements 1 1 0 0 1 Result Diagram: 07/12/16 1450 07/12/16 1450 Objective Remarks GENERAL: This is a well-nourished, well-developed patient, in no apparent distress. CARDIOVASCULAR: Regular rate and rhythm without murmurs, gallops, or rubs. RESPIRATORY: Clear to auscultation. Breath sounds equal bilaterally. No wheezes , rales, or rhonchi. GASTROINTESTINAL: Abdomen soft, non-tender, nondistended. Imaged bowel sounds, surgical wound in gauze MUSCULOSKELETAL: Extremities without clubbing, cyanosis, or edema. NEURO: Alert & Oriented x4 to person, place, time, situation. Moves all ext x4 A/P Problem List: (1) Colon adenocarcinoma ICD Code: C18.9 Status: Acute (2) DM (diabetes mellitus) ICD Code: E11.9 Status: Acute (3) Atrial fibrillation ICD Code: I48.91 Status: Chronic (4) ESRD (end stage renal disease) ICD Code: N18.6 Status: Acute Assessment and Plan 07/11: Continue following with surgery, CBC in a.m. still no bowel movement or flatus 07/13: Awaiting podiatry and vascular surgery for intervention and workup on left toe and lower extremity PAD Mr. Adams is a 66 year old male with a history of DM, ESRD on HD on and previously diagnosed colonic adenocarcinoma who was admitted to the hospital today following EGD/Colonoscopy and right sided hemicolectomy. - Colon adenocarcinoma - Colonoscopy today showed 3 x 1 cm mass in the ascending colon. - Oncological surgery (Dr. Hodge) performed Lap right colectomy. - Continue [place] PRN and Dilaudid PRN - Perioperative abx with Cefazolin and Flagyl. - Alvimopan 12 mg PO Q12hrs for GI recovery. - Lovenox 30mg Q24hrs starting 07/11/2016. - ESRD - HD on , and Wednesday - Nephrology consulted to continue dialysis. - PAD with L toe gangrene: - [facility] & podiatry consulted - plan for CTA work up and podiatry intervention for the toe after recovery mostly next week - Diabetes mellitus type 2 - Blood glucose 114, 149. - Will continue sliding scale insulin. - May need to start long acting insulin - perhaps 5 to 10 units QHS. - Atrial fibrillation - [id number] score 3 (age 65-74, HTN, DM). - Patient used to be on Apixaban. When okay with surgery, we can continue Apixaban 5mg BID. - Apixaban has been on hold due to GI bleed. - Hyperlipidemia - continue Lipitor 80mg QHS. Full code. Lovenox starting 07/11/2016. Problem Qualifiers (1) Atrial fibrillation: Qualified Code: I48.2 - Chronic atrial fibrillation Karol Amezcua MD Jul 13, 2016 15:41
[2016-07-13 16:00] VITALS: BP 118/56; PULSE 76; RESP 17; TEMP 98; O2SAT 93
--- NOTE | 2016-07-13 16:05 | HHI.PR ---
Subjective Subjective Notes Up to chair Pain controlled Objective Vitals/I&O Vital Signs Date Time Temp Pulse Resp B/P Pulse Ox O2 Delivery O2 Flow Rate FiO2 07/13/16 12:00 98.4 80 17 123/86 94 07/10/16 18:01 Nasal Cannula 3.00 Cardiovascular: Regular Lungs: Clear Abdomen: Other (incision site c/d/i; abdomen soft), Post-op tenderness Extremities: No edema A/P Assessment and Plan 66 year old male POD3 RIGHT hemicolectomy -Pain controlled -OOB and mobilize -Tolerating renal diet -Continue usual schedule for HD -CM consult for home with C vs rehab Attending Statement The exam, history, and the medical decision-making described in the above note were completed with the assistance of the mid-level provider. I reviewed and agree with the findings presented. I attest that I had a [id number] encounter with the patient on the same day, and personally performed and documented my assessment and findings in the medical record. abdominal exam stable, no signs of postop complications, tolerating PO Cathi Pires Jul 13, 2016 16:05 Emery Hodge MD Jul 24, 2016 08:19
--- NOTE | 2016-07-13 18:05 | PD.POD ---
Subjective Podiatric Problems Left hallux dry gangrene. Pt is unaware how long he has had the wound or how it started. He is aware that the plan is for amputation pending results of angio by vascular. He is agreeable to this plan. He denies any pain at this time. Pain scale used: 0-10 numeric scale Pain score: 0 Past Med/Surg/Social History Social History Smoking Status: Never Smoker Objective Vital Signs Vital Signs Date Time Temp Pulse Resp B/P Pulse Ox O2 Delivery O2 Flow Rate FiO2 07/13/16 16:00 98.0 76 17 118/56 93 07/13/16 12:00 98.4 80 17 123/86 94 07/13/16 08:00 98.1 88 18 131/63 94 07/13/16 04:00 97.8 95 18 115/54 93 07/13/16 00:00 99.2 86 20 142/65 93 07/12/16 20:00 99.8 86 20 111/56 93 Coded Allergies: Demerol (Verified Allergy, Severe, HYPERTENSION, 07/09/16) Morphine (Verified Allergy, Severe, HYPERTENSION, 07/09/16) Exam-Podiatry Remarks Exam: RLE unremarkable LLE- non palpable PT or DP but leg and foot feel warm and perfused, mild edema, absent protective sensation, erythema and martina appearance to entire hallux, plantar distal half of hallux with full thickness eschar Assessment & Plan A/P 1) Left hallux dry gangrene -Plan for surgical amputation pending vascular -Dry dressing changes every other day -Will follow intermittently while in house until surgery can be scheduled Nichole Hussein DPM Jul 13, 2016 18:05
[2016-07-13 20:00] VITALS: BP 131/65; PULSE 88; RESP 19; TEMP 98.4; O2SAT 94
[2016-07-13] MEDS: ATORVASTATIN 80 MG TAB PO SCH (21:58)
[2016-07-13] MEDS: ACETAMINOPHEN/HYDROcodone 325 MG/5 MG TAB PO PRN (22:34)
[2016-07-14] VITALS: BP 122/59; PULSE 80; RESP 19; TEMP 99.8; O2SAT 94
[2016-07-14] MEDS: INSULIN NovoLIN REGULAR SUPPLEMENTAL SCALE SQ SCH ×4 (05:20→21:00)
[2016-07-14 06:06] LABS: BICARBONATE 23.7 MEQ/L (21.0-32.0)
[2016-07-14 08:00] VITALS: BP 110/55; PULSE 82; RESP 18; TEMP 98.5; O2SAT 95
--- NOTE | 2016-07-14 08:53 | HHI.NPPN ---
Subjective Complaints: Obesity General Problems: Edema, Hypertension Renal Failure: Chronic, End Stage Renal Disease Interval History Seen during dialysis. Reporting constipation and rectal pain. (Skyla Hernandez) Review of Systems General Constitutional: Fatigue (Skyla Hernandez) Gastrointestinal Gastrointestinal: Constipation GI Remarks rectal pain (Skyla Hernandez) Objective Data Data 07/13/16 07/14/16 19:00 07:00 Intake Total 1560 ml 480 ml Balance 1560 ml 480 ml Intake Oral 1560 ml 480 ml # Voids 1 1 # Bowel Movements 1 1 Vital Signs Date Time Temp Pulse Resp B/P Pulse Ox O2 Delivery O2 Flow Rate FiO2 07/14/16 08:00 98.5 82 18 110/55 95 07/14/16 00:00 99.8 80 19 122/59 94 07/13/16 20:00 98.4 88 19 131/65 94 07/13/16 16:00 98.0 76 17 118/56 93 07/13/16 12:00 98.4 80 17 123/86 94 (Skyla Hernandez) -: 07/12/16 1450 07/14/16 0440 Physical Exam General Appearance: Well Nourished, No Acute Distress, Comfortable (Skyla Hernandez) Eyes Eye Exam: Pupils Equal (Skyla Hernandez) Neck Neck Exam: Neck Supple, Trachea Midline (Skyal Hernandez) Pulmonary Resp Exam: Clear Bilaterally, Breath Sounds Equal, No Distress, Decreased Bases (Skyla Hernandez) Cardiology CV Exam: Regular, Normal Sinus Rhythm (Skyla Hernandez) Gastrointestinal/Abdomen GI Exam: Soft, Bowel Sounds Present, Distended GI Remarks morbidly obese laparoscopic incisions with james in place (Skyla Hernandez) Musculoskeletal MS Exam: Joints Intact, Normal Tone (Skyla Hernandez) Extremeties Extremities Exam: Trace Edema Extremeties Remarks weak pedal pulses bilaterally left toe dressing in place (Skyla Hernandez) Neurologic Neuro Exam: Alert, Awake, Oriented, Moving All Extremities (Skyla Hernandez) Psychiatric Psych Exam: Appropriate Responses (Skyla Hernandez) Assessment/Plan Discussed Condition With: Patient Assessment Summary: Anemia of CKD, Hypertension, End Stage Renal Disease Problem List: (1) ESRD on hemodialysis Plan: seen during dialysis on a 3K, 400 BFR, goal 3L continue HD per TTS schedule no acute renal concerns his AVF functions well renal diet no protein restriction avoid IVF (2) Anemia Plan: epogen with dialysis (3) Colonic polyp Plan: s/p laparoscopic right hemicolectomy with appendectomy on 07/11 he is doing well postoperatively appreciate surgery recommendations he is requesting stool softener (4) Toe gangrene Plan: vascular has evaluated, long standing hx of PAD, has neuropathy bilaterally plans for LLE angiogram possible revascularization this week, possible amputation of left great toe noted to have absent pedal pulses bilaterally (5) Hypertension Plan: continue home medications BP is acceptable (6) Atrial fibrillation Plan: rate controlled on Lovenox, his Eliquis has not been resumed (7) Metabolic bone disease Plan: continue renvela with meals (Skyla Hernandez) Problem List: (1) ESRD on hemodialysis Plan: seen during dialysis on a 3K, 400 BFR, goal 3L continue HD per TTS schedule no acute renal concerns his AVF functions well renal diet no protein restriction avoid IVF (2) Anemia Plan: epogen with dialysis (3) Colonic polyp Plan: s/p laparoscopic right hemicolectomy with appendectomy on 07/11 he is doing well postoperatively appreciate surgery recommendations he is requesting stool softener (4) Toe gangrene Plan: vascular has evaluated, long standing hx of PAD, has neuropathy bilaterally plans for LLE angiogram possible revascularization this week, possible amputation of left great toe noted to have absent pedal pulses bilaterally (5) Hypertension Plan: continue home medications BP is acceptable (6) Atrial fibrillation Plan: rate controlled on Lovenox, his Eliquis has not been resumed (7) Metabolic bone disease Plan: continue renvela with meals Plan patient was seen and examined. To have dialysis today and TTS. Stable from renal standpoint. Notes were reviewed. (Doni Floyd MD) Problem Qualifiers (1) Anemia: (2) Atrial fibrillation: Qualified Code: I48.2 - Chronic atrial fibrillation Skyla Hernandez Jul 14, 2016 08:53 Doni Floyd MD Jul 14, 2016 14:03
[2016-07-14] MEDS: SODIUM CHLORIDE 0.9% FLUSH 10 ML FLUSH IV FLUSH SCH ×2 (09:00→21:00)
[2016-07-14] MEDS: ALVIMOPAN 12 MG CAPSULE PO SCH ×2 (09:00→22:42)
[2016-07-14] MEDS: CARVEDILOL 12.5 MG TAB PO SCH (09:00)
[2016-07-14] MEDS: PANTOPRAZOLE SOD 40 MG DELAYED RELEASE TAB PO SCH (09:00)
[2016-07-14] MEDS: GABAPENTIN 100 MG CAP PO SCH ×3 (09:00→17:16)
[2016-07-14] MEDS: lamoTRIgine 25 MG TAB PO SCH ×2 (09:00→22:47)
[2016-07-14] MEDS: DILTIAZEM-CD 180 MG CAP ER PO SCH (09:00)
[2016-07-14] MEDS: ISOSORBIDE MONONITRATE 60 MG TAB PO SCH ×2 (09:00→22:42)
[2016-07-14] MEDS: EPOETIN ALFA 10,000 UNITS/ML VIAL IV PRN (10:38)
--- NOTE | 2016-07-14 12:41 | HHI.PR ---
Subjective Remarks Pleasant patient going for lower extremity study today by the [facility] Chest pain or short of breath or fever Objective Vitals Vital Signs Date Time Temp Pulse Resp B/P Pulse Ox O2 Delivery O2 Flow Rate FiO2 07/14/16 08:00 98.5 82 18 110/55 95 07/14/16 00:00 99.8 80 19 122/59 94 07/13/16 20:00 98.4 88 19 131/65 94 07/13/16 16:00 98.0 76 17 118/56 93 I/O 07/13/16 07/13/16 07/13/16 07/14/16 07/14/16 07/14/16 07:00 15:00 23:00 07:00 15:00 23:00 Intake Total 240 ml 1560 ml 240 ml 240 ml Output Total 3000 ml Balance 240 ml 1560 ml 240 ml 240 ml -3000 ml Intake Oral 240 ml 1560 ml 240 ml 240 ml Hemodialysis 3000 ml # Voids 0 1 1 0 # Bowel Movements 0 1 1 Result Diagram: 07/12/16 1450 07/14/16 0440 Objective Remarks GENERAL: This is a well-nourished, well-developed patient, in no apparent distress. CARDIOVASCULAR: Regular rate and rhythm without murmurs, gallops, or rubs. RESPIRATORY: Clear to auscultation. Breath sounds equal bilaterally. No wheezes , rales, or rhonchi. GASTROINTESTINAL: Abdomen soft, non-tender, nondistended. Imaged bowel sounds, surgical wound in gauze MUSCULOSKELETAL: Extremities without clubbing, cyanosis, or edema. NEURO: Alert & Oriented x4 to person, place, time, situation. Moves all ext x4 A/P Problem List: (1) Colon adenocarcinoma ICD Code: C18.9 Status: Acute (2) DM (diabetes mellitus) ICD Code: E11.9 Status: Acute (3) Atrial fibrillation ICD Code: I48.91 Status: Chronic (4) ESRD (end stage renal disease) ICD Code: N18.6 Status: Acute Assessment and Plan 07/11: Continue following with surgery, CBC in a.m. still no bowel movement or flatus 07/13: Awaiting podiatry and vascular surgery for intervention and workup on left toe and lower extremity PAD 07/14: Plan to go for lower extremity study either CVS today , further recommendation per CVS, left toe amputation per podiatry is pending completing CVS plan A/P: Mr. Adams is a 66 year old male with a history of DM, ESRD on HD on and previously diagnosed colonic adenocarcinoma who was admitted to the hospital today following EGD/Colonoscopy and right sided hemicolectomy. - Colon adenocarcinoma - Colonoscopy today showed 3 x 1 cm mass in the ascending colon. - Oncological surgery (Dr. Hodge) performed Lap right colectomy. - Continue [place] PRN and Dilaudid PRN - Perioperative abx with Cefazolin and Flagyl. - Alvimopan 12 mg PO Q12hrs for GI recovery. - Lovenox 30mg Q24hrs starting 07/11/2016. - ESRD - HD on , and Wednesday - Nephrology consulted to continue dialysis. - PAD with L toe gangrene: - CVS & podiatry consulted - plan for CTA work up and podiatry intervention for the toe after recovery mostly next week - Diabetes mellitus type 2 - Blood glucose 114, 149. - Will continue sliding scale insulin. - May need to start long acting insulin - perhaps 5 to 10 units QHS. - Atrial fibrillation - [id number] score 3 (age 65-74, HTN, DM). - Patient used to be on Apixaban. When okay with surgery, we can continue Apixaban 5mg BID. - Apixaban has been on hold due to GI bleed. - Hyperlipidemia - continue Lipitor 80mg QHS. Full code. Lovenox starting 07/11/2016. Problem Qualifiers (1) Atrial fibrillation: Qualified Code: I48.2 - Chronic atrial fibrillation Karol Amezcua MD Jul 14, 2016 12:41
[2016-07-14 13:00] VITALS: BP 167/74; PULSE 80; RESP 17; TEMP 98.7; O2SAT 98
--- NOTE | 2016-07-14 13:09 | PD.VS.PN ---
Subjective Subjective/Hospital Course Pt without complaints HD this am Objective Vitals/I&O Date Time Temp Pulse Resp B/P Pulse Ox O2 Delivery O2 Flow Rate FiO2 07/14/16 08:00 98.5 82 18 110/55 95 07/14/16 00:00 99.8 80 19 122/59 94 07/13/16 20:00 98.4 88 19 131/65 94 07/13/16 16:00 98.0 76 17 118/56 93 07/14/16 07/14/16 07/14/16 07:00 15:00 23:00 Intake Total 240 ml Output Total 3000 ml Balance 240 ml -3000 ml Physical Exam GENERAL: A&OX3, GCS15, Affect appropriate to situation SKIN: Warm and dry, Left great toe present with stable dry gangrene, no changes since previous assessment NECK: Supple,No JVD CARDIOVASCULAR: Regular rate and rhythm without murmurs, gallops, or rubs. RESPIRATORY: Breath sounds equal bilaterally. No accessory muscle use. GASTROINTESTINAL: Abdomen soft, non-tender, nondistended. MUSCULOSKELETAL: No cyanosis, or edema. Laboratory Laboratory Tests Test 07/14/16 04:40 Sodium Level 131 Potassium Level 4.0 Chloride Level 93 Carbon Dioxide Level 23.7 Anion Gap 14 Blood Urea Nitrogen 72 Creatinine 10.45 Estimat Glomerular Filtration 5 Rate Random Glucose 126 Calcium Level 8.7 Phosphorus Level 7.2 Albumin 2.4 Assessment and Plan Plan Plan L LE angiogram is scheduled for [facility] with Dr. Sow Exam explained in detail, Consent signed and placed in the chart Yaneth ZUNIGA [facility] [phone] Yaneth Magaña Jul 14, 2016 13:09
[2016-07-14] MEDS: SEVELAMER CARBONATE 800 MG TAB PO SCH ×2 (13:52→17:15)
[2016-07-14] MEDS: ENOXAPARIN SODIUM 30 MG/0.3 ML SYRINGE SQ SCH (13:53)
[2016-07-14 16:00] VITALS: BP 139/82; PULSE 86; RESP 17; TEMP 98; O2SAT 94
[2016-07-14] MEDS: ACETAMINOPHEN 325 MG TAB PO PRN (17:15)
[2016-07-14 20:00] VITALS: BP 129/62; PULSE 91; RESP 17; TEMP 96.5; O2SAT 95
[2016-07-14] MEDS: ATORVASTATIN 80 MG TAB PO SCH (22:42)
[2016-07-15] VITALS: BP 127/61; PULSE 94; RESP 17; TEMP 99.6; O2SAT 94
[2016-07-15] MEDS: INSULIN NovoLIN REGULAR SUPPLEMENTAL SCALE SQ SCH ×4 (06:24→22:10)
--- NOTE | 2016-07-15 07:25 | MP ---
cc: BRAIN LAM DATE OF SURGERY 07/10/2016 PREOPERATIVE DIAGNOSIS Right/ascending colon cancer. POSTOPERATIVE DIAGNOSIS Right/ascending colon cancer. PROCEDURE 1. Laparoscopic lysis of adhesions greater than 45 minutes. 2. Laparoscopic right hemicolectomy with ileal transverse anastomosis. ANESTHESIA General ATTENDING SURGEON Brain Lam MD NURSING FACULTY Staff BLOOD LOSS 50 cc COMPLICATIONS None FINDINGS A well-defined malignant-appearing lesion in the ascending colon tattooed by Dr. Harper of gastroenterology during colonoscopy prior to the procedure. INDICATIONS FOR PROCEDURE The patient is a 66-year-old male who has multiple comorbidities who was previously diagnosed with a bleeding polyp in his right colon. The patient underwent a colonoscopy at that time for tattooing and laparoscopic polypectomy due to recurrent bleeding. During that time, the patient on a biopsy was noted to have possible invasive adenocarcinoma seen on one of the biopsies. I had a discussion with the patient about the management to include repeat colonoscopy and close followup versus surgical resection. The patient elects to undergo preoperative colonoscopy to localize the lesion and delineate any possible remaining lesion. During the colonoscopy performed by Dr. Harper (please see separate dictated note), the patient was noted to have a well-defined malignant-appearing lesion in the right colon in the area of the previous tattoo and polypectomy. The risks, benefits and alternatives to possible right ascending colectomy were discussed with the patient prior to the procedure. The patient agreed to undergo the procedure. PROCEDURE After informed consent was obtained, the patient was taken to the operating room, placed in a supine position and placed under general anesthesia. The patient underwent a colonoscopy by Dr. Harper, please see details of his procedure from the note. After the patient had a completed his colonoscopy, his abdomen was shaved, prepped and draped in a sterile fashion. Time-out was performed. The abdomen was entered through a Gomes direct stick technique with a 5 mm 0-degree camera in the subxiphoid position. We insufflated the abdomen and then surveyed the abdomen as noted. There was no evidence of any complication from our entry. We then placed two 5 mm ports and these were one above the umbilicus and one below the umbilicus under the visualization of a laparoscope. We then were able to visualize the patients tattoo placement at a previous polypectomy site which was in the distal ascending colon just proximal to the hepatic flexure. At this point in time we turned towards our dissection. We used the LigaSure using a lateral to medial type approach. We mobilized the entire right colon along the right line of T[place]t in avascular plane. We were able to take the appendix using the LigaSure up the mesentery and at the base of the appendix with the LigaSure due to it being adhesed to the sidewall and limiting mobility. The appendix was passed off as a separate specimen. We continued our dissection along the hepatic flexure until we had excellent mobilization. We were then able to grasp the ileocolic area of the colon, retract this upward and we able to easily visualize our ileocolic vessels coursing towards the cecum. We used the LigaSure as well as [place] dissector to dissect out the artery and vein as one bundle. We divided this with a short load on the [place] 45 stapler. We extended our mobilization and divided the mesentery proximally and distally to these vessels along the small bowel, as well as up to the hepatic flexure with the LigaSure. Once we had excellent mobilization intracorporeally, we turned our attention towards our hand port. We did place a hand port into the right upper quadrant in standard fashion. This was over the rectus sheath and the rectus muscles were retracted medially and the hand port was placed lateral to the rectus muscles without dividing any muscle only the anterior and posterior rectus sheath were divided. I then was able to extracorporalate the right colon. We were able to divide the terminal ileum and the colon just to the right of the middle colic vessels. We had excellent pink bowel on both sides of the anastomosis with even some bleeding at the staple edges. We placed the antimesenteric tinea to the antimesentery of the small bowel and performed a [id number] functional end-to-end anastomosis using the blue load on the [place] 45 stapler. We closed the defect with another blue load on the [place] stapler. A wide open staple line with no twisting. We closed the mesenteric defect with a [id number] 3-0 silk suture. We placed cross-stitches on the proximal and distal end of the staple line to take tension off our staple line. We then placed the anastomosis back into the abdomen. We did a survey of the abdomen with the camera and the GelPort maintaining insufflation and the bowel lay in a normal anatomic position with attached muscles in the right upper quadrant with a good technical result. There was no evidence of any bleeding or leak. We did place a the greater omentum over this area as well and this laid in a natural position over the small bowel. At this point in time, we then removed all ports under the visualization of the laparoscope and expressed pneumoperitoneum. We closed the hand port with a #1 single PDS suture in the posterior rectus sheath and a #1 looped PDS suture in the anterior rectus sheath. We closed the skin with james and sterile dressings were applied. The patient was discontinued from anesthesia and taken to PACU in stable condition. The patient tolerated the procedure well. No apparent complications. All counts were correct and I was present and scrubbed for the entire procedure. MD RACQUEL Lewis/NATE /3:09 PM /6:56 AM [email or web address]
--- NOTE | 2016-07-15 07:42 | HHI.NPPN ---
Subjective Complaints: Obesity General Problems: Edema, Hypertension Renal Failure: Chronic, End Stage Renal Disease Interval History patient is doing well. Has no new complaints. Angiogram is scheduled for . Review of Systems General Constitutional: Fatigue Gastrointestinal Gastrointestinal: Constipation GI Remarks rectal pain Objective Data Data 07/14/16 07/15/16 19:00 07:00 Intake Total 360 ml 480 ml Output Total 6000 ml Balance -5640 ml 480 ml Intake Oral 360 ml 480 ml IV Total 0 ml 0 ml Hemodialysis 6000 ml # Voids 1 0 # Bowel Movements 1 Vital Signs Date Time Temp Pulse Resp B/P Pulse Ox O2 Delivery O2 Flow Rate FiO2 07/15/16 00:00 99.6 94 17 127/61 94 07/14/16 20:00 96.5 91 17 129/62 95 07/14/16 16:00 98.0 86 17 139/82 94 07/14/16 13:00 98.7 80 17 167/74 98 07/14/16 08:00 98.5 82 18 110/55 95 -: 07/12/16 1450 07/14/16 0440 Physical Exam General Appearance: Well Nourished, No Acute Distress, Comfortable Eyes Eye Exam: Pupils Equal Neck Neck Exam: Neck Supple, Trachea Midline Pulmonary Resp Exam: Clear Bilaterally, Breath Sounds Equal, No Distress, Decreased Bases Cardiology CV Exam: Regular, Normal Sinus Rhythm Gastrointestinal/Abdomen GI Exam: Soft, Bowel Sounds Present, Distended Musculoskeletal MS Exam: Joints Intact, Normal Tone Extremeties Extremities Exam: Trace Edema Neurologic Neuro Exam: Alert, Awake, Oriented, Moving All Extremities Psychiatric Psych Exam: Appropriate Responses Assessment/Plan Discussed Condition With: Patient Assessment Summary: Anemia of CKD, Hypertension, End Stage Renal Disease Problem List: (1) ESRD on hemodialysis Plan: continue HD per TTS schedule renal diet no protein restriction avoid IVF (2) Anemia Plan: epogen with dialysis (3) Colonic polyp Plan: s/p laparoscopic right hemicolectomy with appendectomy on 07/11 he is doing well postoperatively (4) Toe gangrene Plan: vascular has evaluated, long standing hx of PAD, has neuropathy bilaterally plans for LLE angiogram possible revascularization this week, possible amputation of left great toe noted to have absent pedal pulses bilaterally (5) Hypertension Plan: continue home medications BP is acceptable (6) Atrial fibrillation Plan: rate controlled on Lovenox, his Eliquis has not been resumed (7) Metabolic bone disease Plan: continue renvela with meals Problem Qualifiers (1) Anemia: (2) Atrial fibrillation: Qualified Code: I48.2 - Chronic atrial fibrillation Doni Floyd MD Jul 15, 2016 07:42
[2016-07-15 08:00] VITALS: BP 157/68; PULSE 80; RESP 18; TEMP 98.5; O2SAT 94
--- NOTE | 2016-07-15 09:38 | HHI.PR ---
Subjective Remarks Resting on his chair doing well Denied any chest pain Stated he still have abdominal discomfort in general he is poor historian Objective Vitals Vital Signs Date Time Temp Pulse Resp B/P Pulse Ox O2 Delivery O2 Flow Rate FiO2 07/15/16 08:00 98.5 80 18 157/68 94 07/15/16 00:00 99.6 94 17 127/61 94 07/14/16 20:00 96.5 91 17 129/62 95 07/14/16 16:00 98.0 86 17 139/82 94 07/14/16 13:00 98.7 80 17 167/74 98 I/O 07/14/16 07/14/16 07/14/16 07/15/16 07/15/16 07/15/16 07:00 15:00 23:00 07:00 15:00 23:00 Intake Total 240 ml 360 ml 240 ml 240 ml Output Total 3000 ml 3000 ml Balance 240 ml -2640 ml -2760 ml 240 ml Intake Oral 240 ml 360 ml 240 ml 240 ml IV Total 0 ml 0 ml Hemodialysis 3000 ml 3000 ml # Voids 0 1 0 0 # Bowel Movements 1 Result Diagram: 07/12/16 1450 07/14/16 0440 Objective Remarks GENERAL: This is a well-nourished, well-developed patient, in no apparent distress. CARDIOVASCULAR: Regular rate and rhythm without murmurs, gallops, or rubs. RESPIRATORY: Clear to auscultation. Breath sounds equal bilaterally. No wheezes , rales, or rhonchi. GASTROINTESTINAL: Abdomen soft, non-tender, nondistended. Imaged bowel sounds, surgical wound in gauze MUSCULOSKELETAL: Extremities without clubbing, cyanosis, or edema. NEURO: Alert & Oriented x4 to person, place, time, situation. Moves all ext x4 A/P Problem List: (1) Colon adenocarcinoma ICD Code: C18.9 Status: Acute (2) DM (diabetes mellitus) ICD Code: E11.9 Status: Acute (3) Atrial fibrillation ICD Code: I48.91 Status: Chronic (4) ESRD (end stage renal disease) ICD Code: N18.6 Status: Acute Assessment and Plan A/P: Mr. Adams is a 66 year old male with a history of DM, ESRD on HD on and previously diagnosed colonic adenocarcinoma who was admitted to the hospital today following EGD/Colonoscopy and right sided hemicolectomy. - Colon adenocarcinoma - Colonoscopy today showed 3 x 1 cm mass in the ascending colon. - Oncological surgery (Dr. Hodge) performed Lap right colectomy. - Continue [place] PRN and Dilaudid PRN - Perioperative abx with Cefazolin and Flagyl. - Alvimopan 12 mg PO Q12hrs for GI recovery. - Lovenox 30mg Q24hrs starting 07/11/2016. Biopsy showed terminal ileum and right colon ileocolectomy > invasive adenocarcinoma invaded into but not through muscularis propria with new margin of resection is free of tumor, pathologic staging PT 2, pn0 -Acute Hypercalcemia: 10.45 Going for dialysis, repeat BMP post dialysis, nephrology following - ESRD - HD on , and Wednesday - Nephrology consulted to continue dialysis. - PAD with L toe gangrene: - [facility] & podiatry consulted - plan for CTA work up and podiatry intervention for the toe after recovery mostly next week - lower extremity study was nonconclusive but did show bilateral narrowing, further recommendation per [facility], left toe amputation per podiatry is pending completing [facility] plan - Diabetes mellitus type 2 - Blood glucose 114, 149. - Will continue sliding scale insulin. - May need to start long acting insulin - perhaps 5 to 10 units QHS. - Atrial fibrillation - [id number] score 3 (age 65-74, HTN, DM). - Patient used to be on Apixaban. When okay with surgery, we can continue Apixaban 5mg BID. - Apixaban has been on hold due to GI bleed. - Hyperlipidemia - continue Lipitor 80mg QHS. Full code. Lovenox starting 07/11/2016. Problem Qualifiers (1) Atrial fibrillation: Qualified Code: I48.2 - Chronic atrial fibrillation Karol Amezcua MD Jul 15, 2016 09:38
[2016-07-15] MEDS: lamoTRIgine 25 MG TAB PO SCH ×2 (09:42→22:07)
[2016-07-15] MEDS: PANTOPRAZOLE SOD 40 MG DELAYED RELEASE TAB PO SCH (09:42)
[2016-07-15] MEDS: DILTIAZEM-CD 180 MG CAP ER PO SCH (09:42)
[2016-07-15] MEDS: ISOSORBIDE MONONITRATE 60 MG TAB PO SCH ×2 (09:42→22:07)
[2016-07-15] MEDS: ALVIMOPAN 12 MG CAPSULE PO SCH ×2 (09:42→22:07)
[2016-07-15] MEDS: GABAPENTIN 100 MG CAP PO SCH ×3 (09:43→16:46)
[2016-07-15] MEDS: CARVEDILOL 12.5 MG TAB PO SCH (09:43)
[2016-07-15] MEDS: SODIUM CHLORIDE 0.9% FLUSH 10 ML FLUSH IV FLUSH SCH ×2 (09:43→21:00)
[2016-07-15] MEDS: SEVELAMER CARBONATE 800 MG TAB PO SCH ×3 (09:48→16:45)
[2016-07-15 11:39] LABS: AUTOMATED NEUTROPHIL # 9.7 TH/MM3 (1.8-7.7); BASOPHIL % 0.2 % (0.0-2.0); EOSINOPHIL # 0.2 TH/MM3 (0-0.4); EOSINOPHIL % 1.5 % (0.0-4.0); HEMO FLAGS DIFF FINAL; LYMPH % 7.5 % (9.0-44.0); LYMPHOCYTE # 0.9 TH/MM3 (1.0-4.8); MEAN CELL VOLUME 86.1 FL (80.0-100.0); MEAN CORPUSCULAR HEMOGLOBIN 27.7 PG (27.0-34.0); MEAN CORPUSCULAR HGB CONC 32.2 % (32.0-36.0); MONO % 9.9 % (0.0-8.0); NEUT % 80.9 % (16.0-70.0); PLATELET COUNT 204 TH/MM3 (150-450); RED BLOOD COUNT 3.37 MIL/MM3 (4.50-5.90); RED CELL DISTRIBUTION WIDTH 17.7 % (11.6-17.2); WHITE BLOOD COUNT 11.9 TH/MM3 (4.0-11.0)
[2016-07-15 12:00] VITALS: BP 121/60; PULSE 89; RESP 18; TEMP 97.3; O2SAT 96
[2016-07-15] MEDS: ENOXAPARIN SODIUM 30 MG/0.3 ML SYRINGE SQ SCH (12:02)
[2016-07-15 12:18] LABS: BICARBONATE 26.8 MEQ/L (21.0-32.0); POTASSIUM 3.9 MEQ/L (3.5-5.1)
[2016-07-15 16:00] VITALS: BP 118/59; PULSE 76; RESP 17; TEMP 97; O2SAT 98
[2016-07-15 20:00] VITALS: BP 144/63; PULSE 84; RESP 20; TEMP 98; O2SAT 94
[2016-07-15] MEDS: ATORVASTATIN 80 MG TAB PO SCH (22:07)
[2016-07-15] MEDS: ACETAMINOPHEN 325 MG TAB PO PRN (22:14)
[2016-07-16] VITALS: BP 136/70; PULSE 82; RESP 20; TEMP 97; O2SAT 97
[2016-07-16 04:37] LABS: AUTOMATED NEUTROPHIL # 9.9 TH/MM3 (1.8-7.7); BASOPHIL % 0.2 % (0.0-2.0); EOSINOPHIL # 0.2 TH/MM3 (0-0.4); EOSINOPHIL % 1.7 % (0.0-4.0); HEMATOCRIT 26.6 % (39.0-51.0); HEMO FLAGS DIFF FINAL; LYMPH % 10.7 % (9.0-44.0); LYMPHOCYTE # 1.4 TH/MM3 (1.0-4.8); MEAN CELL VOLUME 84.9 FL (80.0-100.0); MEAN CORPUSCULAR HEMOGLOBIN 27.8 PG (27.0-34.0); MEAN CORPUSCULAR HGB CONC 32.7 % (32.0-36.0); MONO % 11.1 % (0.0-8.0); NEUT % 76.3 % (16.0-70.0); PLATELET COUNT 204 TH/MM3 (150-450); RED BLOOD COUNT 3.14 MIL/MM3 (4.50-5.90); RED CELL DISTRIBUTION WIDTH 17.6 % (11.6-17.2)
[2016-07-16 05:02] LABS: BICARBONATE 25.6 MEQ/L (21.0-32.0); POTASSIUM 4.1 MEQ/L (3.5-5.1)
[2016-07-16] MEDS: INSULIN NovoLIN REGULAR SUPPLEMENTAL SCALE SQ SCH ×4 (07:00→20:36)
[2016-07-16 08:00] VITALS: BP 108/54; PULSE 84; RESP 18; TEMP 96.8; O2SAT 95
[2016-07-16] MEDS: SEVELAMER CARBONATE 800 MG TAB PO SCH ×3 (08:19→16:57)
[2016-07-16] MEDS: ALVIMOPAN 12 MG CAPSULE PO SCH ×2 (08:19→20:37)
[2016-07-16] MEDS: ISOSORBIDE MONONITRATE 60 MG TAB PO SCH ×2 (08:19→20:37)
[2016-07-16] MEDS: SODIUM CHLORIDE 0.9% FLUSH 10 ML FLUSH IV FLUSH SCH ×2 (08:20→20:37)
[2016-07-16] MEDS: CARVEDILOL 12.5 MG TAB PO SCH (08:20)
[2016-07-16] MEDS: DILTIAZEM-CD 180 MG CAP ER PO SCH (08:20)
[2016-07-16] MEDS: PANTOPRAZOLE SOD 40 MG DELAYED RELEASE TAB PO SCH (08:21)
[2016-07-16] MEDS: lamoTRIgine 25 MG TAB PO SCH ×2 (08:21→20:37)
[2016-07-16] MEDS: GABAPENTIN 100 MG CAP PO SCH ×3 (08:21→16:57)
--- NOTE | 2016-07-16 08:39 | HHI.NPPN ---
Subjective Complaints: Obesity General Problems: Edema, Hypertension Renal Failure: Chronic, End Stage Renal Disease Interval History To have dialysis today. Angiogram is planned. Review of Systems General Constitutional: Fatigue Gastrointestinal Gastrointestinal: Constipation GI Remarks rectal pain Objective Data Data 07/15/16 07/16/16 19:00 07:00 Intake Total 1560 ml 580 ml Output Total 800 ml Balance 1560 ml -220 ml Intake Oral 1560 ml 580 ml IV Total 0 ml Output Urine Total 800 ml # Voids 1 # Bowel Movements 1 0 Vital Signs Date Time Temp Pulse Resp B/P Pulse Ox O2 Delivery O2 Flow Rate FiO2 07/16/16 00:00 97.0 82 20 136/70 97 07/15/16 20:00 98.0 84 20 144/63 94 07/15/16 16:00 97.0 76 17 118/59 98 07/15/16 12:00 97.3 89 18 121/60 96 -: 07/16/16 0403 07/16/16 0403 Physical Exam General Appearance: Well Nourished, No Acute Distress, Comfortable Eyes Eye Exam: Pupils Equal Neck Neck Exam: Neck Supple, Trachea Midline Pulmonary Resp Exam: Clear Bilaterally, Breath Sounds Equal, No Distress, Decreased Bases Cardiology CV Exam: Regular, Normal Sinus Rhythm Gastrointestinal/Abdomen GI Exam: Soft, Bowel Sounds Present, Distended Musculoskeletal MS Exam: Joints Intact, Normal Tone Extremeties Extremities Exam: Trace Edema Neurologic Neuro Exam: Alert, Awake, Oriented, Moving All Extremities Psychiatric Psych Exam: Appropriate Responses Assessment/Plan Discussed Condition With: Patient Assessment Summary: Anemia of CKD, Hypertension, End Stage Renal Disease Problem List: (1) ESRD on hemodialysis Plan: continue HD per TTS schedule renal diet no protein restriction avoid IVF (2) Anemia Plan: epogen with dialysis (3) Colonic polyp Plan: s/p laparoscopic right hemicolectomy with appendectomy on 07/11 he is doing well postoperatively (4) Toe gangrene Plan: vascular has evaluated, long standing hx of PAD, has neuropathy bilaterally plans for LLE angiogram possible revascularization this week, possible amputation of left great toe noted to have absent pedal pulses bilaterally (5) Hypertension Plan: continue home medications BP is acceptable (6) Atrial fibrillation Plan: rate controlled on Lovenox, his Eliquis has not been resumed (7) Metabolic bone disease Plan: continue renvela with meals Problem Qualifiers (1) Anemia: (2) Atrial fibrillation: Qualified Code: I48.2 - Chronic atrial fibrillation Doni Floyd MD Jul 16, 2016 08:39
[2016-07-16] MEDS: EPOETIN ALFA 10,000 UNITS/ML VIAL IV PRN (10:25)
[2016-07-16] MEDS: ENOXAPARIN SODIUM 30 MG/0.3 ML SYRINGE SQ SCH (13:36)
[2016-07-16] MEDS: ACETAMINOPHEN/HYDROcodone 325 MG/5 MG TAB PO PRN (13:42)
--- NOTE | 2016-07-16 14:13 | PD.VS.PN ---
Subjective Subjective/Hospital Course Pt without complaints HD this am (Yaneth Magaña) Objective Vitals/I&O Date Time Temp Pulse Resp B/P Pulse Ox O2 Delivery O2 Flow Rate FiO2 07/16/16 08:00 96.8 84 18 108/54 95 07/16/16 00:00 97.0 82 20 136/70 97 07/15/16 20:00 98.0 84 20 144/63 94 07/15/16 16:00 97.0 76 17 118/59 98 07/16/16 07/16/16 07/16/16 07:00 15:00 23:00 Intake Total 240 ml Output Total 400 ml Balance -160 ml Physical Exam GENERAL: NAD, Alert SKIN: Warm and dry. CARDIOVASCULAR: +S1 RESPIRATORY: Breath sounds equal and clear bilaterally Left great toe present with stable dry gangrene (Yaneth Magaña) Laboratory Laboratory Tests Test 07/16/16 04:03 White Blood Count 13.0 Red Blood Count 3.14 Hemoglobin 8.7 Hematocrit 26.6 Mean Corpuscular Volume 84.9 Mean Corpuscular Hemoglobin 27.8 Mean Corpuscular Hemoglobin 32.7 Concent Red Cell Distribution Width 17.6 Platelet Count 204 Mean Platelet Volume 7.1 Neutrophils (%) (Auto) 76.3 Lymphocytes (%) (Auto) 10.7 Monocytes (%) (Auto) 11.1 Eosinophils (%) (Auto) 1.7 Basophils (%) (Auto) 0.2 Neutrophils # (Auto) 9.9 Lymphocytes # (Auto) 1.4 Monocytes # (Auto) 1.4 Eosinophils # (Auto) 0.2 Basophils # (Auto) 0.0 CBC Comment DIFF FINAL Differential Comment Sodium Level 131 Potassium Level 4.1 Chloride Level 91 Carbon Dioxide Level 25.6 Anion Gap 14 Blood Urea Nitrogen 74 Creatinine 9.82 Estimat Glomerular Filtration 5 Rate Random Glucose 134 Calcium Level 8.7 (Yaneth Magaña) Assessment and Plan Plan Plan L LE angiogram is scheduled for Wednesday with Dr. Juanjose Smith be D/C and done as an OP Will call attending to discuss Yaneth ZUNIGA [facility] [phone] (Yaneth Magaña) Plan I agree with above A/P. Attempts to reach attending physician by [employer]IN. Angel Hidalgo DO, [employer] Machine Operator of Vascular Surgery /[place] (Angel Hidalgo DO) Yaneth Magaña Jul 16, 2016 14:13 Angel Hidalgo DO Jul 16, 2016 16:27
--- NOTE | 2016-07-16 15:52 | HHI.PR ---
Subjective Remarks Follow-up colon cancer, ESRD, diabetes. Patient states that he feels OK today. No nausea or vomiting. Pain is controlled. Objective Vitals Vital Signs Date Time Temp Pulse Resp B/P Pulse Ox O2 Delivery O2 Flow Rate FiO2 07/16/16 14:42 18 07/16/16 08:00 96.8 84 18 108/54 95 07/16/16 00:00 97.0 82 20 136/70 97 07/15/16 20:00 98.0 84 20 144/63 94 07/15/16 16:00 97.0 76 17 118/59 98 I/O 07/15/16 07/15/16 07/15/16 07/16/16 07/16/16 07/16/16 07:00 15:00 23:00 07:00 15:00 23:00 Intake Total 240 ml 1560 ml 340 ml 240 ml 1440 ml Output Total 400 ml 400 ml 3000 ml Balance 240 ml 1560 ml -60 ml -160 ml -1560 ml Intake Oral 240 ml 1560 ml 340 ml 240 ml 1440 ml IV Total 0 ml 0 ml Output Urine Total 400 ml 400 ml Hemodialysis 3000 ml # Voids 0 1 1 # Bowel Movements 1 0 0 0 Result Diagram: 07/16/16 0403 07/16/16 0403 Imaging Last Impressions Lower Extremity Ultrasound 07/11/16 0000 Signed Impressions: Service Date/Time: Monday, July 11, 2016 16:56 - CONCLUSION: 1. The study is negative for deep venous thrombosis bilateral lower extremity. 2. 6 cm left popliteal cyst. Chu Collier MD Foot MRI 07/11/16 0000 Signed Impressions: Service Date/Time: Monday, July 11, 2016 09:43 - CONCLUSION: Generalized soft-tissue swelling of the great toe without marrow edema to suggest osteomyelitis. There is very little soft tissue covering the distal phalanx of the great toe. Jose Cisneros MD FACR Foot X-Ray 07/10/16 0000 Signed Impressions: Service Date/Time: Sunday, July 10, 2016 20:27 - CONCLUSION: 1. Mild degenerative changes involving the first metatarsophalangeal joint. 2. Diffuse osteopenia. 3. No acute fracture or dislocation. Marco De La Fuente MD Objective Remarks General: Obese male in no acute distress. Sitting up in a chair. Heart: Regular rate and rhythm. No murmur. Lungs: Clear to auscultation bilaterally. No wheezes, rales, or rhonchi. Breathing is nonlabored. Abdomen: Soft, nontender, nondistended. Wounds bandaged. Extremities: 1+ bilateral lower extremity edema. Psych: Alert and oriented. Urinary Catheter: No Vascular Central Line Catheter: No A/P Problem List: (1) Colon adenocarcinoma ICD Code: C18.9 Status: Acute (2) DM (diabetes mellitus) ICD Code: E11.9 Status: Chronic (3) Atrial fibrillation ICD Code: I48.91 Status: Chronic (4) ESRD (end stage renal disease) ICD Code: N18.6 Status: Chronic Assessment and Plan 1. Colon adenocarcinoma: Status post laparoscopic right colectomy. Appreciate surgery recommendations. Continue pain control. 2. Acute hypercalcemia: Appreciate nephrology recommendations. 3. End-stage renal disease: Continue hemodialysis Wednesday, , Wednesday. Management per nephrology. 4. Peripheral arterial disease: Patient has left toe gangrene. Appreciate podiatry, vascular surgery recommendations. Patient will need amputation of great toe. Needs vascular surgery procedure prior to amputation. 5. Diabetes mellitus type 2: Monitor Accu-Cheks and cover with sliding scale insulin. 6. Atrial fibrillation: Apixaban on hold secondary to GI bleed. 7. Hyperlipidemia: Continue statin. 8. DVT prophylaxis: Lovenox. Problem Qualifiers (1) Atrial fibrillation: Qualified Code: I48.2 - Chronic atrial fibrillation Jim Blas MD Jul 16, 2016 15:52
[2016-07-16 16:00] VITALS: BP 130/62; PULSE 103; RESP 16; TEMP 97.3; O2SAT 96
[2016-07-16] MEDS: ACETAMINOPHEN/HYDROcodone 325 MG/7.5 MG TAB PO PRN (17:15)
[2016-07-16 20:00] VITALS: BP 164/70; PULSE 94; RESP 20; TEMP 99.4; O2SAT 95
[2016-07-16] MEDS: ATORVASTATIN 80 MG TAB PO SCH (20:37)
[2016-07-16 23:57] VITALS: BP 135/62; PULSE 102; RESP 20; TEMP 99; O2SAT 94
[2016-07-17] MEDS: ACETAMINOPHEN 325 MG TAB PO PRN (03:06)
[2016-07-17 05:21] LABS: AUTOMATED NEUTROPHIL # 9.9 TH/MM3 (1.8-7.7); BASOPHIL % 0.3 % (0.0-2.0); EOSINOPHIL # 0.2 TH/MM3 (0-0.4); EOSINOPHIL % 1.2 % (0.0-4.0); HEMATOCRIT 28.8 % (39.0-51.0); HEMO FLAGS DIFF FINAL; LYMPH % 9.7 % (9.0-44.0); LYMPHOCYTE # 1.2 TH/MM3 (1.0-4.8); MEAN CELL VOLUME 86.1 FL (80.0-100.0); MEAN CORPUSCULAR HEMOGLOBIN 27.6 PG (27.0-34.0); MEAN CORPUSCULAR HGB CONC 32.1 % (32.0-36.0); MONO % 10.9 % (0.0-8.0); NEUT % 77.9 % (16.0-70.0); PLATELET COUNT 200 TH/MM3 (150-450); RED BLOOD COUNT 3.35 MIL/MM3 (4.50-5.90); RED CELL DISTRIBUTION WIDTH 17.6 % (11.6-17.2); WHITE BLOOD COUNT 12.7 TH/MM3 (4.0-11.0)
[2016-07-17 05:59] LABS: ALKALINE PHOSPHATASE 88 U/L (45-117); ALT (GPT) LESS THAN 6 U/L (12-78); ANION GAP 12 MEQ/L (5-15); AST (GOT) 9 U/L (15-37); BLOOD UREA NITROGEN 56 MG/DL (7-18); CHLORIDE 93 MEQ/L (98-107); GLOMERULAR FILTRATION RATE 7 ML/MIN (>89); POTASSIUM 4.2 MEQ/L (3.5-5.1); SODIUM (NA) 132 MEQ/L (136-145); TOTAL BILIRUBIN ADULT 0.3 MG/DL (0.2-1.0)
[2016-07-17] MEDS: INSULIN NovoLIN REGULAR SUPPLEMENTAL SCALE SQ SCH ×4 (06:02→20:01)
[2016-07-17 08:00] VITALS: BP 123/73; PULSE 100; RESP 16; TEMP 97; O2SAT 95
[2016-07-17] MEDS: SODIUM CHLORIDE 0.9% FLUSH 10 ML FLUSH IV FLUSH SCH ×2 (09:00→19:56)
[2016-07-17] MEDS: lamoTRIgine 25 MG TAB PO SCH ×2 (09:11→20:00)
[2016-07-17] MEDS: PANTOPRAZOLE SOD 40 MG DELAYED RELEASE TAB PO SCH (09:12)
[2016-07-17] MEDS: DILTIAZEM-CD 180 MG CAP ER PO SCH (09:12)
[2016-07-17] MEDS: GABAPENTIN 100 MG CAP PO SCH ×3 (09:12→17:13)
[2016-07-17] MEDS: ALVIMOPAN 12 MG CAPSULE PO SCH ×2 (09:12→19:55)
[2016-07-17] MEDS: CARVEDILOL 12.5 MG TAB PO SCH (09:12)
[2016-07-17] MEDS: SEVELAMER CARBONATE 800 MG TAB PO SCH ×3 (09:13→17:13)
[2016-07-17] MEDS: ISOSORBIDE MONONITRATE 60 MG TAB PO SCH ×2 (09:13→19:55)
[2016-07-17] MEDS: ACETAMINOPHEN/HYDROcodone 325 MG/7.5 MG TAB PO PRN ×3 (09:14→20:50)
--- NOTE | 2016-07-17 09:36 | HHI.NPPN ---
Subjective Complaints: Obesity General Problems: Edema, Hypertension Renal Failure: Chronic, End Stage Renal Disease Interval History Dialyzed yesterday. LLE procedure scheduled for wednesday. (Skyla Hernandez) Review of Systems General Constitutional: Fatigue (Skyla Hernandez) Gastrointestinal Gastrointestinal: Constipation GI Remarks rectal pain (Skyla Hernandez) Objective Data Data 07/16/16 07/17/16 19:00 07:00 Intake Total 1440 ml 360 ml Output Total 3000 ml Balance -1560 ml 360 ml Intake Oral 1440 ml 360 ml IV Total 0 ml Hemodialysis 3000 ml # Voids 1 4 # Bowel Movements 0 0 Vital Signs Date Time Temp Pulse Resp B/P Pulse Ox O2 Delivery O2 Flow Rate FiO2 07/17/16 08:00 97.0 100 16 123/73 95 07/16/16 23:57 99.0 102 20 135/62 94 07/16/16 20:00 99.4 94 20 164/70 95 07/16/16 18:32 18 07/16/16 16:00 97.3 103 16 130/62 96 07/16/16 14:42 18 (Skyla Hernandez) -: 07/17/16 0438 07/17/16 0438 Physical Exam General Appearance: Well Nourished, No Acute Distress, Comfortable (Skyla Hernandez) Eyes Eye Exam: Pupils Equal (Skyla Hernandez) Neck Neck Exam: Neck Supple, Trachea Midline (Skyla Hernandez) Pulmonary Resp Exam: Clear Bilaterally, Breath Sounds Equal, No Distress, Decreased Bases (Skyla Hernandez) Cardiology CV Exam: Regular, Normal Sinus Rhythm (Skyla Hernandez) Gastrointestinal/Abdomen GI Exam: Soft, Bowel Sounds Present, Distended GI Remarks morbidly obese laparoscopic incisions with james in place (Skyla Hernandez) Musculoskeletal MS Exam: Joints Intact, Normal Tone (Skyla Hernandez) Extremeties Extremities Exam: Trace Edema Extremeties Remarks weak pedal pulses bilaterally left toe dressing in place (Skyla Hernandez) Neurologic Neuro Exam: Alert, Awake, Oriented, Moving All Extremities (Skyla Hernandez) Psychiatric Psych Exam: Appropriate Responses (Skyla Hernandez) Assessment/Plan Discussed Condition With: Patient Assessment Summary: Anemia of CKD, Hypertension, End Stage Renal Disease Problem List: (1) ESRD on hemodialysis Plan: continue HD per TTS schedule 3L UF yesterday renal diet no protein restriction avoid IVF no acute renal concerns has existing outpatient HD arrangements (2) Anemia Plan: epogen with dialysis (3) Colonic polyp Plan: s/p laparoscopic right hemicolectomy with appendectomy on 07/11 he is doing well postoperatively (4) Toe gangrene Plan: vascular has evaluated, long standing hx of PAD, has neuropathy bilaterally plans for LLE angiogram possible revascularization next wednesday with Dr. Sow, possible amputation of left great toe noted to have absent pedal pulses bilaterally (5) Hypertension Plan: continue home medications BP is acceptable (6) Atrial fibrillation Plan: rate controlled on Lovenox, his Eliquis has not been resumed (7) Metabolic bone disease Plan: continue renvela with meals intermittent phos level (Skyla Hernandez) Plan patient was seen and examined. We will continue dialysis TTS. Angiogram is planned. (Doni Floyd MD) Problem Qualifiers (1) Anemia: (2) Atrial fibrillation: Qualified Code: I48.2 - Chronic atrial fibrillation Skyla Hernandez Jul 17, 2016 09:36 Doni Floyd MD Jul 17, 2016 13:39
[2016-07-17] MEDS: ENOXAPARIN SODIUM 30 MG/0.3 ML SYRINGE SQ SCH (11:50)
[2016-07-17 12:00] VITALS: BP 123/62; PULSE 95; RESP 16; TEMP 97.8; O2SAT 95
--- NOTE | 2016-07-17 14:56 | HHI.PR ---
Subjective Remarks Follow-up colon cancer, ESRD, diabetes, and peripheral vascular disease. The patient states that he feels okay today. No abdominal pain currently. Objective Vitals Vital Signs Date Time Temp Pulse Resp B/P Pulse Ox O2 Delivery O2 Flow Rate FiO2 07/17/16 12:00 97.8 95 16 123/62 95 07/17/16 08:00 97.0 100 16 123/73 95 07/16/16 23:57 99.0 102 20 135/62 94 07/16/16 20:00 99.4 94 20 164/70 95 07/16/16 18:32 18 07/16/16 16:00 97.3 103 16 130/62 96 I/O 07/16/16 07/16/16 07/16/16 07/17/16 07/17/16 07/17/16 07:00 15:00 23:00 07:00 15:00 23:00 Intake Total 240 ml 1440 ml 240 ml 120 ml Output Total 400 ml 3000 ml Balance -160 ml -1560 ml 240 ml 120 ml Intake Oral 240 ml 1440 ml 240 ml 120 ml IV Total 0 ml Output Urine Total 400 ml Hemodialysis 3000 ml # Voids 1 1 3 2 # Bowel Movements 0 0 0 0 Result Diagram: 07/17/16 0438 07/17/16 0438 Imaging Last Impressions Lower Extremity Ultrasound 07/11/16 0000 Signed Impressions: Service Date/Time: Monday, July 11, 2016 16:56 - CONCLUSION: 1. The study is negative for deep venous thrombosis bilateral lower extremity. 2. 6 cm left popliteal cyst. Chu Collier MD Foot MRI 07/11/16 0000 Signed Impressions: Service Date/Time: Monday, July 11, 2016 09:43 - CONCLUSION: Generalized soft-tissue swelling of the great toe without marrow edema to suggest osteomyelitis. There is very little soft tissue covering the distal phalanx of the great toe. Jose Cisneros MD FACR Foot X-Ray 07/10/16 0000 Signed Impressions: Service Date/Time: Sunday, July 10, 2016 20:27 - CONCLUSION: 1. Mild degenerative changes involving the first metatarsophalangeal joint. 2. Diffuse osteopenia. 3. No acute fracture or dislocation. Marco De La Fuente MD Objective Remarks General: Obese male in no acute distress. Sitting up in a chair. Heart: Regular rate and rhythm. No murmur. Lungs: Clear to auscultation bilaterally. No wheezes, rales, or rhonchi. Breathing is nonlabored. Abdomen: Soft, nontender, nondistended. Wounds bandaged. Extremities: 1+ bilateral lower extremity edema. Psych: Alert and oriented. Urinary Catheter: No Vascular Central Line Catheter: No A/P Problem List: (1) Colon adenocarcinoma ICD Code: C18.9 Status: Acute (2) DM (diabetes mellitus) ICD Code: E11.9 Status: Chronic (3) Atrial fibrillation ICD Code: I48.91 Status: Chronic (4) ESRD (end stage renal disease) ICD Code: N18.6 Status: Chronic Assessment and Plan 1. Colon adenocarcinoma: Status post laparoscopic right colectomy. Continue pain control. Cleared for discharge by general surgery. 2. Acute hypercalcemia: Appreciate nephrology recommendations. 3. End-stage renal disease: Continue hemodialysis Wednesday, , Wednesday. Management per nephrology. 4. Peripheral arterial disease: Patient has left toe gangrene. Appreciate podiatry, vascular surgery recommendations. Patient will need amputation of great toe. Needs vascular surgery procedure prior to amputation. Vascular procedure is scheduled for Wednesday. 5. Diabetes mellitus type 2: Monitor Accu-Cheks and cover with sliding scale insulin. 6. Atrial fibrillation: Apixaban on hold secondary to GI bleed. 7. Hyperlipidemia: Continue statin. 8. DVT prophylaxis: Lovenox. Discharge Planning The patient will need SNF at discharge. Medically he could be discharged today if arrangements were made and all specialists cleared the patient area he would have to return to the outpatient clinic on Wednesday with vascular surgery for procedure. Problem Qualifiers (1) Atrial fibrillation: Qualified Code: I48.2 - Chronic atrial fibrillation Jim Blas MD Jul 17, 2016 14:56
[2016-07-17 16:00] VITALS: BP 137/62; PULSE 96; RESP 16; TEMP 97.1; O2SAT 97
[2016-07-17] MEDS: ATORVASTATIN 80 MG TAB PO SCH (19:56)
[2016-07-17 20:00] VITALS: BP 137/62; PULSE 88; RESP 21; TEMP 98.7; O2SAT 94
[2016-07-18 00:02] VITALS: BP 113/56; PULSE 73; RESP 20; TEMP 96.9; O2SAT 95
[2016-07-18] MEDS: ACETAMINOPHEN/HYDROcodone 325 MG/7.5 MG TAB PO PRN ×3 (01:09→16:31)
[2016-07-18] MEDS: INSULIN NovoLIN REGULAR SUPPLEMENTAL SCALE SQ SCH ×4 (05:24→16:31)
[2016-07-18 06:34] LABS: BICARBONATE 25.9 MEQ/L (21.0-32.0); POTASSIUM 4.4 MEQ/L (3.5-5.1)
[2016-07-18] MEDS: ALVIMOPAN 12 MG CAPSULE PO SCH (07:58)
[2016-07-18] MEDS: GABAPENTIN 100 MG CAP PO SCH ×3 (07:58→17:33)
[2016-07-18] MEDS: CARVEDILOL 12.5 MG TAB PO SCH (07:58)
[2016-07-18] MEDS: ISOSORBIDE MONONITRATE 60 MG TAB PO SCH (07:58)
[2016-07-18] MEDS: lamoTRIgine 25 MG TAB PO SCH (07:58)
[2016-07-18] MEDS: PANTOPRAZOLE SOD 40 MG DELAYED RELEASE TAB PO SCH (07:59)
[2016-07-18] MEDS: DILTIAZEM-CD 180 MG CAP ER PO SCH (07:59)
[2016-07-18] MEDS: SEVELAMER CARBONATE 800 MG TAB PO SCH ×4 (07:59→16:31)
[2016-07-18] MEDS: SODIUM CHLORIDE 0.9% FLUSH 10 ML FLUSH IV FLUSH SCH (07:59)
[2016-07-18] MEDS: ACETAMINOPHEN/HYDROcodone 325 MG/5 MG TAB PO PRN (08:07)
--- NOTE | 2016-07-18 09:34 | HHI.NPPN ---
Subjective Complaints: Obesity General Problems: Edema, Hypertension Renal Failure: Chronic, End Stage Renal Disease Additional Remarks No acute complaints, seen on dialysis. Review of Systems General Constitutional: Fatigue Gastrointestinal Gastrointestinal: Constipation GI Remarks rectal pain Objective Data Data 07/17/16 07/18/16 19:00 07:00 Intake Total 360 ml Balance 360 ml Intake Oral 360 ml # Voids 2 0 # Bowel Movements 0 Vital Signs Date Time Temp Pulse Resp B/P Pulse Ox O2 Delivery O2 Flow Rate FiO2 07/18/16 09:07 18 07/18/16 02:09 18 07/18/16 00:02 96.9 73 20 113/56 95 07/17/16 20:00 98.7 88 21 137/62 94 07/17/16 16:00 97.1 96 16 137/62 97 07/17/16 12:00 97.8 95 16 123/62 95 -: 07/17/16 0438 07/18/16 0533 Physical Exam General Appearance: Well Nourished, No Acute Distress, Comfortable Eyes Eye Exam: Pupils Equal Neck Neck Exam: Neck Supple, Trachea Midline Pulmonary Resp Exam: Clear Bilaterally, Breath Sounds Equal, No Distress, Decreased Bases Cardiology CV Exam: Regular, Normal Sinus Rhythm Gastrointestinal/Abdomen GI Exam: Soft, Bowel Sounds Present, Distended Musculoskeletal MS Exam: Joints Intact, Normal Tone Extremeties Extremities Exam: Trace Edema Neurologic Neuro Exam: Alert, Awake, Oriented, Moving All Extremities Psychiatric Psych Exam: Appropriate Responses Assessment/Plan Discussed Condition With: Patient Assessment Summary: Anemia of CKD, Hypertension, End Stage Renal Disease Problem List: (1) ESRD on hemodialysis Plan: continue HD per TTS schedule Seen on HD today, tolerating HD well. Next HD Wednesday renal diet no protein restriction avoid IVF no acute renal concerns has existing outpatient HD arrangements Ok for d/c today and outpatient follow-up Wednesday for vascular study, from renal standpoint. (2) Anemia Plan: epogen with dialysis (3) Colonic polyp Plan: s/p laparoscopic right hemicolectomy with appendectomy on 07/11 he is doing well postoperatively (4) Toe gangrene Plan: vascular has evaluated, long standing hx of PAD, has neuropathy bilaterally plans for LLE angiogram possible revascularization next wednesday with Dr. Sow, possible amputation of left great toe noted to have absent pedal pulses bilaterally (5) Hypertension Plan: continue home medications BP is acceptable (6) Atrial fibrillation Plan: rate controlled on Lovenox, his Eliquis has not been resumed (7) Metabolic bone disease Plan: continue renvela with meals intermittent phos level Problem Qualifiers (1) Anemia: (2) Atrial fibrillation: Qualified Code: I48.2 - Chronic atrial fibrillation Martin Lundberg MD Jul 18, 2016 09:34
[2016-07-18] MEDS: EPOETIN ALFA 10,000 UNITS/ML VIAL IV PRN (10:46)
[2016-07-18] MEDS ORDERED: HYDR-3516 PO (12:11)
[2016-07-18] MEDS ORDERED: SEVEL800 PO (12:11)
[2016-07-18] MEDS: ENOXAPARIN SODIUM 30 MG/0.3 ML SYRINGE SQ SCH (12:51)
--- NOTE | 2016-07-18 13:56 | HHI.PR ---
Subjective Remarks Follow-up colon cancer, ESRD, diabetes, and peripheral vascular disease. Patient has mild abdominal pain at the surgical site, otherwise no complaints. Objective Vitals Vital Signs Date Time Temp Pulse Resp B/P Pulse Ox O2 Delivery O2 Flow Rate FiO2 07/18/16 09:07 18 07/18/16 02:09 18 07/18/16 00:02 96.9 73 20 113/56 95 07/17/16 20:00 98.7 88 21 137/62 94 07/17/16 16:00 97.1 96 16 137/62 97 I/O 07/17/16 07/17/16 07/17/16 07/18/16 07/18/16 07/18/16 07:00 15:00 23:00 07:00 15:00 23:00 Intake Total 120 ml 240 ml 120 ml Output Total 3000 ml Balance 120 ml 240 ml 120 ml -3000 ml Intake Oral 120 ml 240 ml 120 ml Hemodialysis 3000 ml # Voids 3 2 0 0 # Bowel Movements 0 0 0 Result Diagram: 07/17/16 0438 07/18/16 0533 Imaging Last Impressions Lower Extremity Ultrasound 07/11/16 0000 Signed Impressions: Service Date/Time: Monday, July 11, 2016 16:56 - CONCLUSION: 1. The study is negative for deep venous thrombosis bilateral lower extremity. 2. 6 cm left popliteal cyst. Chu Collier MD Foot MRI 07/11/16 0000 Signed Impressions: Service Date/Time: Monday, July 11, 2016 09:43 - CONCLUSION: Generalized soft-tissue swelling of the great toe without marrow edema to suggest osteomyelitis. There is very little soft tissue covering the distal phalanx of the great toe. Jose Cisneros MD FACR Foot X-Ray 07/10/16 0000 Signed Impressions: Service Date/Time: Sunday, July 10, 2016 20:27 - CONCLUSION: 1. Mild degenerative changes involving the first metatarsophalangeal joint. 2. Diffuse osteopenia. 3. No acute fracture or dislocation. Marco De La Fuente MD Objective Remarks General: Obese male in no acute distress. Sitting up in a chair. Heart: Regular rate and rhythm. No murmur. Lungs: Clear to auscultation bilaterally. No wheezes, rales, or rhonchi. Breathing is nonlabored. Abdomen: Soft, nontender, nondistended. Wounds bandaged. Extremities: 1+ bilateral lower extremity edema. Psych: Alert and oriented. Procedures 07/10/16 EGD/colonoscopy; right hemicolectomy Urinary Catheter: No Vascular Central Line Catheter: No A/P Problem List: (1) Colon adenocarcinoma ICD Code: C18.9 Status: Acute (2) DM (diabetes mellitus) ICD Code: E11.9 Status: Chronic (3) Atrial fibrillation ICD Code: I48.91 Status: Chronic (4) ESRD (end stage renal disease) ICD Code: N18.6 Status: Chronic Assessment and Plan 1. Colon adenocarcinoma: Status post laparoscopic right colectomy. Continue pain control. Cleared for discharge by general surgery. 2. Acute hypercalcemia: Resolved. Appreciate nephrology recommendations. 3. End-stage renal disease: Continue hemodialysis Wednesday, , Wednesday. Management per nephrology. 4. Peripheral arterial disease: Patient has left toe gangrene. Appreciate podiatry, vascular surgery recommendations. Patient will need amputation of left great toe. Needs vascular surgery procedure prior to amputation. Vascular procedure is scheduled for Wednesday. Discussed with Dr. Hussein, podiatry, who will see the patient in her office within a week following vascular procedure to arrange for amputation. 5. Diabetes mellitus type 2: Monitor Accu-Cheks and cover with sliding scale insulin. 6. Atrial fibrillation: Apixaban on hold secondary to GI bleed. 7. Hyperlipidemia: Continue statin. 8. DVT prophylaxis: Lovenox. Discharge Planning Plan is for discharge to SNF/rehab today. He will have to follow up in the outpatient clinic on Wednesday with vascular surgery for procedure. Problem Qualifiers (1) Atrial fibrillation: Qualified Code: I48.2 - Chronic atrial fibrillation Jim Blas MD Jul 18, 2016 13:56
[2016-07-18 14:30] VITALS: BP 143/63; PULSE 92; RESP 18; TEMP 98.1; O2SAT 96
[2016-07-18 17:31] VITALS: RESP 17
[2016-08-03] MEDS ORDERED: MIRA33504 PO (14:38)
[2016-08-03] MEDS ORDERED: LANTUS2P SQ (14:38)
[2016-08-03] MEDS ORDERED: SEVEL800 PO (14:38)
[2016-08-03] MEDS ORDERED: HYDR-3516 PO (14:38)
[2016-08-03] MEDS ORDERED: DULC10SU3 RECTAL (14:38)
[2016-08-03] MEDS ORDERED: NOVOLOGP2 SQ (14:38)
[2016-08-03] MEDS ORDERED: SENN8.6T5 PO (14:38)
[2016-08-03] MEDS ORDERED: LAMO25TA PO (14:38)
[2016-08-03] MEDS ORDERED: AMLO10TA2 PO (14:38)
--- NOTE | 2016-08-05 15:27 | HHI.DS ---
Discharge Summary Admission Date Jul 10, 2016 at 14:13 Discharge Date: Jul 18, 2016 Admitting Diagnosis Brief History 66 year old male POD3 RIGHT hemicolectomy for adenocarcinoma. PE at Discharge Alert and awake Cardio: RRR Resp: CTAB Abd: incision c/d/i; no tenderness Hospital Course This is a 66 year old male POD3 RIGHT hemicolectomy. His pain was controlled using oral pain medications. He was able to ambulate independently. His HD was continued in the hospital. He was able to tolerate a regular diet. He will follow up in the office in about 1-2 weeks. Pt Condition on Discharge: Good Discharge Disposition: Discharge to SNF Discharge Instructions DIET: Follow Instructions for: As Tolerated, No Restrictions Activities you can perform: Regular-No Restrictions Cathi Pires Aug 05, 2016 15:27
== END 2016-07-18 18:30 | DRG 329 ==
LOC: HOR 08:18 → HSDI 14:13 → N07B 15:53
PROVIDERS: ADMIT Internal Medicine Gastroenterology; ATTEND Internal Medicine Gastroenterology
PROC: 0DB68ZX Excision of Stomach, Via Natural or Artificial Opening Endoscopic, Diagnostic (ICD-10-PCS; 2016-07-10)
PROC: 0DTF4ZZ Resection of Right Large Intestine, Percutaneous Endoscopic Approach (ICD-10-PCS; principal; 2016-07-10 10:47)
PROC: 0DNF4ZZ Release Right Large Intestine, Percutaneous Endoscopic Approach (ICD-10-PCS; 2016-07-10 10:47)
PROC: 0DJD8ZZ Inspection of Lower Intestinal Tract, Via Natural or Artificial Opening Endoscopic (ICD-10-PCS; 2016-07-10 10:47)
PROC: 5A1D60Z (ICD-10-PCS; 2016-07-11)
DX: C18.2 Malignant neoplasm of ascending colon (principal); N18.6 End stage renal disease; I13.2 Hypertensive heart and chronic kidney disease with heart failure and with stage 5 chronic kidney disease, or end stage renal disease; E11.52 Type 2 diabetes mellitus with diabetic peripheral angiopathy with gangrene; E11.22 Type 2 diabetes mellitus with diabetic chronic kidney disease; I48.91 Unspecified atrial fibrillation; E11.40 Type 2 diabetes mellitus with diabetic neuropathy, unspecified; E83.52 Hypercalcemia; D63.1 Anemia in chronic kidney disease; I25.10 Atherosclerotic heart disease of native coronary artery without angina pectoris; K58.9 Irritable bowel syndrome, unspecified; I50.9 Heart failure, unspecified; Z99.2 Dependence on renal dialysis; Z79.4 Long term (current) use of insulin; E78.5 Hyperlipidemia, unspecified; Z95.5 Presence of coronary angioplasty implant and graft; B19.20 Unspecified viral hepatitis C without hepatic coma
CPT/HCPCS: 73630; 73718; 80048; 80053; 80069; 82948; 85025; 88304; 88305; 88307; 88309; 90935; 93922; 93970; 93998; 94150; 96374; C9113; J0131; J0690; J1170; J1650; J2370; J2405; J3010; J7030; Q4081

== ENCOUNTER 2016-07-20 14:04 | Day surgery (SDC) | payer MEDICARE, BC ==
[~2016-07-20] VITALS: Ht 180.3 cm; Wt 140.8 kg
[~2016-07-20 14:04] MED LIST changes: -FURO1TAB60 PO; +HUMALOG SQ; +HYDR-3516 PO; -HYDR25TA35 PO; -LANTUS2P SQ; -METO5TAB3 PO; -NOVOINJ3 SQ; -PHOS667C5 PO; -SITA25 PO
[2016-07-20 15:13] VITALS: BP 132/61; PULSE 76; RESP 18; TEMP 99; O2SAT 94
[2016-07-20] MEDS ORDERED: IOHEXOL 350 MG/ML 100 ML BTL (for Cath Lab) OTHER ONE (15:30)
[2016-07-20] MEDS ORDERED: MIDAZOLAM HCL 2 MG/2 ML VIAL ONE (15:34)
[2016-07-20] MEDS ORDERED: HEPARIN-NS/PF INJ 500 ML ONE (15:34)
[2016-07-20] MEDS ORDERED: SODIUM CHLOR 0.9% 1000 ML INJ 1,000 ML IV SCH (16:00)
--- NOTE | 2016-07-20 16:27 | HHI.PR ---
Immediate Post Op Note Procedure Date: Jul 20, 2016 Pre Op Diagnosis: L LE tissue loss Post Op Diagnosis: L LE tissue loss Surgeon: Marco Sow Rn Med Surg(s): none Procedure: 1. Placement of R CFV line 2. Aortogram w/ L LE angiogram Findings: patent arteries and AT runoff Additional Information: arterial sheath removed in OR venous sheath to be removed in DOCU Complications: none apparent Specimen(s) removed: none Estimated blood loss: 5 mL Anesthesia: MAC Drains: None Patient to: Other (DOCU) Patient Condition: Good Date/Time of Procedure: SEE SURGICAL CARE RECORD Marco Sow MD Jul 20, 2016 16:27
--- NOTE | 2016-07-22 11:26 | MP ---
cc: NICK SOW MD DATE OF SURGERY 07/20/16 PREOPERATIVE DIAGNOSIS Left lower lobe gangrene, peripheral arterial occlusive disease POSTOPERATIVE DIAGNOSIS Left lower lobe gangrene, peripheral arterial occlusive disease PLANNED PROCEDURE 1. Ultrasound guided access to right common femoral artery 2. Aortogram 3. Left lower extremity angiogram 4. Femoral vein catheter placement. SURGEON Neida Sow MD RESIDENT SURGEON None. ANESTHESIA Local sedation INDICATION Mr. Adams is a 66 year old gentleman with end-stage renal disease, hepatitis and peripheral arterial occlusive disease. He has left great toe gangrene and he is taken to the operating room of angiographic evaluation and treatment. No prior cath based images were reviewed. PROCEDURE IN DETAIL Informed consent was obtained. The patient was taken to the operating room and placed supine on the operating table. An appropriate time out was taken to ensure the patient identity, the operative site and planned procedure. No antibiotics were necessary since this is a clean procedure without the planned implantation of any foreign objects. Everyone in the room agreed with time out and we proceeded. Bilateral groin was prepped and draped under ultrasonographic guidance. A right common femoral vein was accessed with a 21 gauge micropuncture needle. This was exchanged using Seldinger technique through the micropuncture sheath through which a micropuncture wire was introduced. Micropuncture sheath was exchanged for a 4 [place] sheath and this was used as a IV in the femoral vein. An ultrasound was then used to access the right common femoral artery. This was done with a 21 gauge micropuncture needle. This was exchanged using Seldinger technique through the micropuncture sheath with a 0.025 glide wire was introduced. The micropuncture sheath was exchanged for a 4 [place] sheath and a VCF sheath was placed over the wire and through the sheath and aortogram and left leg arteriogram was obtained. The glide wire was introduced and navigated down to the left common femoral artery. The VCF catheter was advanced over this and left lower extremity arteriogram was obtained. Wire, catheter and sheath were removed. Pressure was held for hemostasis. There were no complications. I was present and scrubbed and performed the entire procedure. INTERPRETATION The patient has patent infrarenal aorta. Common iliac artery is a hypogastric artery and external iliac arteries bilaterally without any hemodynamically significant stenosis. The left common femoral artery, profunda and superficial femoral artery are patent without any hemodynamically significant stenosis. The popliteal artery is patent. The anterior tibial artery is patent with dominant runoff down to the level of the foot. There was no hemodynamically significant stenosis. The tibial peroneal trunk and proximal PT and peroneal arteries are patent but then peter out into the mid calf. MD REBA Hunter/ /4:23 PM /10:36 AM MTDD
[2016-08-03] MEDS ORDERED: SENN8.6T5 PO (14:38)
[2016-08-03] MEDS ORDERED: MIRA33504 PO (14:38)
[2016-08-03] MEDS ORDERED: HYDR-3516 PO (14:38)
[2016-08-03] MEDS ORDERED: LAMO25TA PO (14:38)
[2016-08-03] MEDS ORDERED: SEVEL800 PO (14:38)
[2016-08-03] MEDS ORDERED: LANTUS2P SQ (14:38)
[2016-08-03] MEDS ORDERED: NOVOLOGP2 SQ (14:38)
[2016-08-03] MEDS ORDERED: DULC10SU3 RECTAL (14:38)
[2016-08-03] MEDS ORDERED: AMLO10TA2 PO (14:38)
== END 2016-07-20 20:10 | disposition home or self-care (01) ==
LOC: HDIC 14:04 → HCAT 14:04
PROVIDERS: ATTEND Surgery
DX: I73.9 Peripheral vascular disease, unspecified (principal); I12.0 Hypertensive chronic kidney disease with stage 5 chronic kidney disease or end stage renal disease; N18.6 End stage renal disease; I48.91 Unspecified atrial fibrillation
CPT/HCPCS: 36246; 75710; C1769; C1893; J1644; J2250; J3010; 76937; Q9967

== ENCOUNTER → 2016-08-03 | Outpatient (CLI) | payer MEDICARE, BC ==
[~2016-08-03] MED LIST changes: +ALPR0.25 PO; -COLA100C3 PO; +DULC10SU3 RECTAL; -HUMALOG SQ; -LAMO25 PO; +LAMO25TA PO; +LANTUS2P SQ; +MIRA33504 PO; +NOVOLOGP2 SQ; +SENN8.6T5 PO
[2016-08-03 13:42] LABS: HEMATOCRIT 30.2 % (39.0-51.0); MEAN CELL VOLUME 90.5 FL (80.0-100.0); MEAN CORPUSCULAR HGB CONC 32.1 % (32.0-36.0); PLATELET COUNT 232 TH/MM3 (150-450); RED BLOOD COUNT 3.33 MIL/MM3 (4.50-5.90); RED CELL DISTRIBUTION WIDTH 17.3 % (11.6-17.2); REVIEW FLAG FINAL; WHITE BLOOD COUNT 10.6 TH/MM3 (4.0-11.0)
[2016-08-03 13:52] LABS: APTT (PATIENT) 27.6 SEC (24.3-30.1); INTERNATIONAL NORMALIZED RATIO 1.1 RATIO; PROTHROMBIN TIME - PATIENT 12.7 SEC (9.8-11.6)
[2016-08-03 14:04] LABS: POTASSIUM 4.4 MEQ/L (3.5-5.1)
--- NOTE | 2016-08-03 15:12 | RADRPT ---
EXAM DATE/TIME: 08/03/2016 14:22 [place] COMPARISON: No previous studies available for comparison. INDICATIONS : Evaluate for pneumothorax, pneumonia and communicable disease. Pre-op for foot surgery. MEDICAL HISTORY : Chronic obstructive pulmonary disease. SURGICAL HISTORY : Stents. ENCOUNTER: Initial ACUITY: 1 day PAIN SCORE: 0/10 LOCATION: Bilateral chest FINDINGS: PA and lateral views of the chest demonstrate the lungs to be symmetrically aerated without evidence of mass, infiltrate or effusion. The cardiomediastinal contours are unremarkable. Osseous structure s are intact. CONCLUSION: No acute disease. Dewayne Valero MD on August 03, 2016 at 15:10 Board Certified Radiologist. This report was verified electronically.
--- NOTE | 2016-08-04 09:04 | EKG ---
Date Performed: 08/03/2016 Time Performed: 13:42:52 PTAGE: 66 years EKG: ATRIAL FIBRILLATION WITH RAPID VENTRICULAR RESPONSE WITH ABERRANT CONDUCTION OR VENTRICULAR PREMATURE COMPLEXES ABNORMAL RHYTHM ECG PREVIOUS TRACING : 05/08/2016 01.08 No significant change from previous tracing noted. DOCTOR: Derik Luke Interpretating Date/Time 08/04/2016 09:02:57
== END ==
LOC: CPRE 12:40
PROVIDERS: ATTEND Surgery
DX: Z01.810 Encounter for preprocedural cardiovascular examination (principal); Z01.811 Encounter for preprocedural respiratory examination; Z01.812 Encounter for preprocedural laboratory examination; R94.31 Abnormal electrocardiogram [ECG] [EKG]; I73.9 Peripheral vascular disease, unspecified; N18.6 End stage renal disease
CPT/HCPCS: 36415; 71020; 80048; 85027; 85610; 85730; 86077; 86850; 86870; 86900; 86901; 86902; 86920; 86922; 93005

== ENCOUNTER 2016-08-05 08:25 | Observation (INO) | payer MEDICARE, BC ==
[~2016-08-05] VITALS: Ht 181.6 cm; Wt 137.2 kg
[~2016-08-05 08:25] MED LIST changes: -ALPR0.25 PO
[2016-08-05] MEDS ORDERED: INSULIN HUMAN REGULAR 1,000 UNITS/10 ML VIAL SQ PRN (09:15)
[2016-08-05] MEDS ORDERED: METOPROLOL TARTRATE 25 MG TAB PO PRN (09:15)
[2016-08-05] MEDS ORDERED: POVIDONE IODINE 5% (ANTISEPSIS KIT) 4 APPLICATIONS EACH NARE PRN (09:15)
[2016-08-05] MEDS ORDERED: SODIUM CHLORID 0.9% 500 ML IV PRN (09:15)
[2016-08-05] MEDS ORDERED: LACTATED RINGER'S 1000 ML IV PRN (09:15)
[2016-08-05] MEDS ORDERED: CHLORHEXIDINE GLUCONATE 2 % 1 PACK (2 CLOTHS) TOPICAL PRN (09:15)
[2016-08-05 09:17] VITALS: BP 150/72; PULSE 127; RESP 18; TEMP 98.2; O2SAT 95
--- NOTE | 2016-08-05 09:22 | PD.VS.PN ---
Pre-operative Note Pre-operative diagnosis: L great toe osteomyelitis Planned procedure: LEFT great toe amputation Interval History: Pt had emesis x 1 today but no nausea. Otherwise feels well. No CP/SOB. Went to HD per usual yesterday without difficulty. Labs: Hct 30 plt 232 INR 1.1 K 4.4 Blood: none needed Orders: NPO VANC 1g IV OCTOR Post-operative destination: PACU, then floor Operative site marked: Yes Consent: Informed consent has been obtained from Jj Adams. I have explained the procedure in detail and discussed the risks, benefits, and potential complications. All questions have been answered. Marco Sow MD Aug 05, 2016 09:22
[2016-08-05] MEDS ORDERED: BUPIVACAINE HCL PF 0.5% 30 ML VIAL ONE (09:24)
[2016-08-05] MEDS ORDERED: VANCOMYCIN HCL 1000 MG VIAL ONE (09:51)
[2016-08-05] MEDS ORDERED: SODIUM CHLOR 0.9% 1000 ML INJ 1,000 ML IV PRN ×3 (10:19)
[2016-08-05] MEDS ORDERED: ONDANSETRON HCL 4 MG/2 ML VIAL IV PRN (10:30)
[2016-08-05] MEDS ORDERED: diphenhydrAMINE HCL 25 MG CAP PO PRN (10:30)
[2016-08-05] MEDS ORDERED: GENTAMICIN SULFATE (DIALYSIS USE ONLY) 20 MG/2 ML VIAL IV PRN (10:30)
[2016-08-05] MEDS ORDERED: SODIUM CHLORIDE 0.9% FLUSH 10 ML FLUSH IV FLUSH PRN (10:30)
[2016-08-05] MEDS ORDERED: cloNIDine HCL 0.1 MG TAB PO PRN (10:30)
[2016-08-05] MEDS ORDERED: HEPARIN SODIUM - IV 10,000 UNITS/10 ML VIAL PRN (10:30)
[2016-08-05] MEDS ORDERED: MANNITOL 12.5 GM/50 ML VIAL IV PRN (10:30)
[2016-08-05] MEDS ORDERED: NITROGLYCERIN 0.4 MG SL 25 TABS/BTL SL PRN ×2 (10:30→10:45)
[2016-08-05] MEDS ORDERED: GELATIN 12 MM/7 MM FOAM TOP PRN (10:30)
[2016-08-05] MEDS ORDERED: ACETAMINOPHEN 325 MG TAB PO PRN (10:30)
[2016-08-05] MEDS ORDERED: HEPARIN SODIUM - IV 10,000 UNITS/10 ML VIAL IVF PRN (10:30)
[2016-08-05] MEDS ORDERED: ALBUMIN HUMAN 25% 25 GM/100 ML BAGP IV PRN (10:30)
[2016-08-05] MEDS ORDERED: EPOETIN ALFA 10,000 UNITS/ML VIAL IV PRN (10:30)
--- NOTE | 2016-08-05 10:41 | HHI.PR ---
Immediate Post Op Note Procedure Date: Aug 05, 2016 Pre Op Diagnosis: L great toe osteomyelitis Post Op Diagnosis: L great toe osteomyelitis Surgeon: Marco Sow Associate Professor Of Art History(s): none Procedure: L Open Ray amputation of great toe Findings: purulence in toe but not foot decent perfusion Complications: none Specimen(s) removed: L great toe Estimated blood loss: 20mL Anesthesia: General Drains: None Fluids: 250mL IVF Patient to: PACU Patient Condition: Good Date/Time of Procedure: SEE SURGICAL CARE RECORD Marco Sow MD Aug 05, 2016 10:41
[2016-08-05] MEDS ORDERED: GLUCAGON 1 MG/ML VIAL OTHER PRN ×2 (10:45→15:00)
[2016-08-05] MEDS ORDERED: DEXTROSE 50% IN WATER 50 ML VIAL(D50) IV PUSH PRN ×2 (10:45→15:00)
[2016-08-05] MEDS ORDERED: BISACODYL 10 MG SUPP RECTAL PRN (10:45)
[2016-08-05] MEDS ORDERED: fentaNYL CITRATE 250 MCG/5 ML AMP ONE (10:49)
[2016-08-05] MEDS ORDERED: PHENYLEPH/NS 1000 MCG/10 ML SYR IV ONE (12:00)
[2016-08-05] MEDS ORDERED: PROPOFOL 200 MG/20 ML AMP IV ONE (12:00)
--- NOTE | 2016-08-05 14:09 | PD.CONS ---
HPI Service Nephrology Consult Requested By Reason for Consult ESRD on HD Primary Care Physician Keven Brock History of Present Illness This is a 66 y/o male dialysis pt who was admitted for left great toe amputation due to osteomyelitis. PMH of ESRD, HTN, Anemia, A fib, and recently had hemicolectomy due to colon cancer. He had full dialysis in the clinic yesterday. The surgery went well today, no reported concerns, he was seen today in the PACU. We were consulted for dialysis management. His vitals are stable, no electrolyte concerns, he has eaten postoperatively. He is a full code, and tells me he will be discharged to rehab tomorrow. (Skyla Hernandez) Review of Systems Musculoskeletal: COMPLAINS OF: Joint pain, Muscle aches (Skyla Hernandez) Past Family Social History Allergies: Coded Allergies: Demerol (Verified Allergy, Severe, HYPERTENSION, 08/05/16) Morphine (Verified Allergy, Severe, HYPERTENSION, 08/05/16) Past Medical History ESRD on HD T-TH-Sat DM II CAD Hyperlipidemia A fib, was taken off eliquis Hypertension Hx GI bleed, recurrent Anemia Metabolic Bone disorder Hypothyroidism GERD Depression Obesity. Learning disability Past Surgical History AVF placement in the left arm. EGD hemicolectomy coronary stents x 2 cholecystectomy Tonsillectomy. Reported Medications reviewed in EMR from previous admission Active Ordered Medications Current Medications Medications (Trade) Dose Ordered Sig/Mason Route Start Time Stop Time Status Last Admin Lactated Ringer's 1,000 ml @ 30 mls/hr Q24H PRN IV 08/05/16 09:15 08/08/16 09:14 (NS 500 ml Inj) 500 ml @ 30 mls/hr [id number] PRN IV 08/05/16 09:15 08/08/16 09:14 08/05/16 09:20 (Roxicodone) 5 mg Q4H PRN PO 08/05/16 09:30 Heparin Sodium (Porcine) 5000 units 5,000 units Q8H SQ 08/06/16 09:30 (NS 1000 ml Inj) 1,000 ml @ 0 mls/hr Q0M PRN IV 08/05/16 10:19 Heparin Sodium (Porcine) 8000 units 8,000 units UNSCH PRN IVF 08/05/16 10:30 Sodium Chloride 1,000 ml @ 200 mls/hr Q5H PRN IV 08/05/16 10:19 (NS 1000 ml Inj) 1,000 ml @ 0 mls/hr Q0M PRN IV 08/05/16 10:19 (Mannitol Inj) 12.5 gm UNSCH PRN IV 08/05/16 10:30 (Albumin 25% Inj) 25 gm UNSCH PRN IV 08/05/16 10:30 (NS Flush) 5 ml UNSCH PRN IV FLUSH 08/05/16 10:30 (Heparin Inj) UNSCH PRN .XX 08/05/16 10:30 (Gentamicin (Dialysis) Inj) 20 mg UNSCH PRN IV 08/05/16 10:30 (Zofran Inj) 4 mg UNSCH PRN IV 08/05/16 10:30 (Tylenol) 650 mg UNSCH PRN PO 08/05/16 10:30 (Benadryl) 25 mg UNSCH PRN PO 08/05/16 10:30 (Nitrostat Sl) 0.4 mg UNSCH PRN SL 08/05/16 10:30 (Catapres) 0.1 mg UNSCH PRN PO 08/05/16 10:30 (Epogen Inj) 10,000 units UNSCH PRN IV 08/05/16 10:30 (Gelfoam 12 Mm/7 Mm Top) 1 foam UNSCH PRN TOP 08/05/16 10:30 (Norvasc) 10 mg DAILY PO 08/06/16 09:00 (Lipitor) 80 mg HS PO 08/05/16 21:00 (Dulcolax Supp) 10 mg DAILY PRN RECTAL 08/05/16 10:45 (Coreg) 25 mg DAILY PO 08/06/16 09:00 (Cardizem Cd) 180 mg DAILY PO 08/06/16 09:00 (Neurontin) 100 mg TID PO 08/05/16 13:00 (Imdur) 120 mg BID PO 08/05/16 21:00 (LaMICtal) 50 mg BID PO 08/05/16 21:00 (Nitrostat Sl) 0.4 mg UNSCH PRN SL 08/05/16 10:45 (Miralax) 17 gm DAILY PO 08/06/16 09:00 (Senokot) 8.6 mg HS PO 08/05/16 21:00 (Renvela) 800 mg TID PO 08/05/16 13:00 (Protonix) 40 mg DAILY PO 08/06/16 09:00 (Bactrim 400-80 Mg) 1 tab DAILY@0600 PO 08/06/16 06:00 08/19/16 06:00 (D50w (Vial) Inj) 25 ml UNSCH PRN IV PUSH 08/05/16 10:45 (Glucagon Inj) 1 mg UNSCH PRN OTHER 08/05/16 10:45 Family History no hx of renal disorders Social History 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 No smoking history Former Heavy ETOH, quit in 1984 Denies hx of illicit substance usage Uses walker to ambulate learning disability, requires assistance full code (Skyla Hernandez) Physical Exam Vital Signs Vital Signs Date Time Temp Pulse Resp B/P Pulse Ox O2 Delivery O2 Flow Rate FiO2 08/05/16 11:30 87 25 119/57 98 Nasal Cannula 2 08/05/16 11:15 88 18 126/59 98 Nasal Cannula 3 08/05/16 11:00 92 19 128/60 97 Nasal Cannula 3 08/05/16 10:45 96 24 117/61 94 Nasal Cannula 3 08/05/16 10:42 98.6 92 14 134/63 100 Nasal Cannula 3 08/05/16 09:17 98.2 127 18 150/72 95 Physical Exam Obese Elderly male, lying supine in bed Eyes open, awake/oriented x 3 CV: S1/S2, irregularly irregular, no murmurs Resp: Clear in all bennett Abd: morbidly obese, round, non tender, normal bowel sounds. Ext: trace lower extremitiy edema; left great toe amputated, dressing in place AVF LUE, + thrill/bruit Laboratory Laboratory Tests Test 08/05/16 09:15 Potassium Level 4.1 (Skyla Hernandez) Result Diagram: 08/05/16 0915 Assessment and Plan Problem List: (1) ESRD on hemodialysis Plan: Continue HD TTS, had full treatment yesterday no electrolyte concerns avoid IVF, I will stop current orders, also avoid gadolinium AVF left arm, functions well HD planned for tomorrow address any complications, no acute renal concerns today (2) Toe gangrene Plan: s/p amputation 08/04 vascular following specimen sent to pathology he was placed on Bactrim that can increase serum K levels (3) A-fib Plan: rate controlled on cardizem and coreg not on anticoagulation (4) Hypertension Plan: monitor BP,continue home medications (5) Type 2 diabetes mellitus Plan: continue insulin therapy monitor glucose, goal 140-180 mg/dL (6) Metabolic bone disease Plan: continue Renvela, check phos in am (7) Anemia Plan: epogen with HD (Skyla Hernandez) Assessment and Plan patient was seen and examined. Agree with above assessment and plan. (Doni Floyd MD) Skyla Hernandez Aug 05, 2016 14:09 Doni Floyd MD Aug 05, 2016 17:31
[2016-08-05 16:00] VITALS: BP 147/69; PULSE 84; RESP 16; TEMP 98.6; O2SAT 90
[2016-08-05] MEDS: MEDIUM DOSE INSULIN NOVOLOG SUPPLEMENTAL SCALE SQ SCH ×2 (16:00→21:11)
[2016-08-05] MEDS: SEVELAMER CARBONATE 800 MG TAB PO SCH ×2 (16:08→17:46)
[2016-08-05] MEDS: GABAPENTIN 100 MG CAP PO SCH ×2 (16:08→17:46)
[2016-08-05 19:12] VITALS: O2SAT 90
[2016-08-05 20:00] VITALS: BP 155/66; PULSE 87; RESP 19; TEMP 98; O2SAT 92
[2016-08-05 20:19] LABS: BICARBONATE 24.1 MEQ/L (21.0-32.0)
[2016-08-05] MEDS: SENNOSIDES 8.6 MG TAB PO SCH (21:00)
[2016-08-05] MEDS: ISOSORBIDE MONONITRATE 60 MG TAB PO SCH (21:07)
[2016-08-05] MEDS: lamoTRIgine 25 MG TAB PO SCH (21:07)
[2016-08-05] MEDS: ATORVASTATIN 80 MG TAB PO SCH (21:08)
[2016-08-06] VITALS (7 sets, daily range): BP systolic 136–173; BP diastolic 60–77; PULSE 82–109; RESP 17–18; TEMP 97.8–99; O2SAT 92–95
[2016-08-06] MEDS: SULFAMETHOXAZOLE-TRIMETHOPRIM 400-80 MG TAB PO SCH (05:00)
[2016-08-06] MEDS: MEDIUM DOSE INSULIN NOVOLOG SUPPLEMENTAL SCALE SQ SCH ×4 (05:00→21:44)
[2016-08-06 05:36] LABS: BICARBONATE 28.2 MEQ/L (21.0-32.0); POTASSIUM 4.2 MEQ/L (3.5-5.1)
[2016-08-06] MEDS: POLYETHYLENE GLYCOL 17 GM PKG PO SCH (08:16)
[2016-08-06] MEDS: PANTOPRAZOLE SOD 40 MG DELAYED RELEASE TAB PO SCH (08:16)
[2016-08-06] MEDS: SEVELAMER CARBONATE 800 MG TAB PO SCH ×3 (08:16→17:05)
[2016-08-06] MEDS: GABAPENTIN 100 MG CAP PO SCH ×3 (08:16→17:05)
[2016-08-06] MEDS: HEPARIN SODIUM - SQ 10,000 UNITS/ML VIAL SQ SCH ×2 (08:16→17:04)
[2016-08-06] MEDS: ISOSORBIDE MONONITRATE 60 MG TAB PO SCH ×2 (08:17→19:57)
[2016-08-06] MEDS: CARVEDILOL 12.5 MG TAB PO SCH (08:17)
[2016-08-06] MEDS: lamoTRIgine 25 MG TAB PO SCH ×2 (08:17→19:58)
[2016-08-06] MEDS ORDERED: DILTIAZEM-CD 240 MG CAP ER PO SCH (09:00)
--- NOTE | 2016-08-06 12:01 | PD.VS.PN ---
Subjective POD #: 1 Procedure(s): L Open Ray amputation of great toe Subjective/Hospital Course Mr. Adams is a 66/M who was admitted for a Left great toe amputation. PMH- ESRD (HD on T,Th and Wed), Osteomyelitis, A Fib, Colon adenocarcinoma, PAD , DM and hyperlipidemia Pt doing well post op without complaints Denies pain No nausea or vomiting noted Slight abdominal discomfort to RUQ near incision line + BS Objective Vitals/I&O Date Time Temp Pulse Resp B/P Pulse Ox O2 Delivery O2 Flow Rate FiO2 08/06/16 08:00 99.0 105 17 143/75 93 08/06/16 04:00 98.8 98 17 156/77 92 08/06/16 00:00 99.0 82 17 159/72 92 08/05/16 20:00 98.0 87 19 155/66 92 08/05/16 19:12 90 21 08/05/16 16:00 98.6 84 16 147/69 90 08/05/16 15:00 97.9 84 16 135/69 97 Nasal Cannula 2 08/05/16 14:00 84 23 137/63 97 Nasal Cannula 2 08/05/16 13:00 82 18 120/68 98 Nasal Cannula 2 08/05/16 12:00 84 25 127/72 99 Nasal Cannula 2 Exam: GENERAL: A&OX3, GCS15, NAD SKIN: Warm and dry. L great toe amputation site with minimal sanguineous drainage. NO Redness/Swelling/erythema noted. NO odor CARDIOVASCULAR: Irregular ( hx of A fib) w/o M/G/R RESPIRATORY: BS CTA GASTROINTESTINAL: Abdomen soft, non-tender, + BS all 4 quads, No nausea or vomiting noted, Healing incision to RUQ w/o R/D/S/O MUSCULOSKELETAL: No cyanosis, or edema. + DP BLE Pulses: +DP BLE Laboratory Laboratory Tests Test 08/05/16 08/06/16 19:40 04:28 Sodium Level 139 143 Potassium Level 4.0 4.2 Chloride Level 104 105 Carbon Dioxide Level 24.1 28.2 Anion Gap 11 10 Blood Urea Nitrogen 43 44 Creatinine 6.40 6.77 Estimat Glomerular Filtration 9 8 Rate Random Glucose 181 137 Calcium Level 8.7 8.9 Phosphorus Level 4.6 Assessment and Plan Plan Plan HD this afternoon Continue wound care management Discharge Planning Potentially tomorrow AM Yaneth Magaña Aug 06, 2016 12:01
--- NOTE | 2016-08-06 13:36 | HHI.NPPN ---
Subjective Complaints: Obesity General Problems: Anemia Renal Failure: Chronic Interval History Seen during dialysis. No acute concerns. (Skyla Hernandez) Objective Data Data 08/05/16 08/06/16 19:00 07:00 Intake Total 800 ml 626 ml Output Total 20 ml 400 ml Balance 780 ml 226 ml Intake Oral 300 ml 480 ml IV Total 250 ml 146 ml Other 250 ml Output Urine Total 400 ml Estimated Blood Loss 20 ml # Voids 0 Vital Signs Date Time Temp Pulse Resp B/P Pulse Ox O2 Delivery O2 Flow Rate FiO2 08/06/16 12:00 98.3 109 17 173/76 94 08/06/16 09:34 95 21 08/06/16 08:00 99.0 105 17 143/75 93 08/06/16 04:00 98.8 98 17 156/77 92 08/06/16 00:00 99.0 82 17 159/72 92 08/05/16 20:00 98.0 87 19 155/66 92 08/05/16 19:12 90 21 08/05/16 16:00 98.6 84 16 147/69 90 08/05/16 15:00 97.9 84 16 135/69 97 Nasal Cannula 2 08/05/16 14:00 84 23 137/63 97 Nasal Cannula 2 (Skyla Hernandez) -: 08/06/16 0428 Physical Exam General Appearance: Well Developed, Well Nourished, No Acute Distress, Obese (Skyla Hernandez) Throat Throat Exam: Oral Mucosa [place] & Moist (Skyla Hernandez) Pulmonary Resp Exam: Clear Bilaterally, Breath Sounds Equal (Skyla Hernandez) Cardiology CV Exam: Good Perfusion, Irregular (Skyla Hernandez) Gastrointestinal/Abdomen GI Exam: Soft, Non-Tender, Bowel Sounds Present (Skyla Hernandez) Musculoskeletal MS Exam: Joints Intact, Normal Tone (Skyla Hernandez) Integumentary Skin Exam: Clear, Warm, Dry, Intact (Skyla Hernandez) Extremeties Extremities Exam: No Edema, Pedal Pulses Palpable Extremeties Remarks left toe amputation (Skyla Hernandez) Neurologic Neuro Exam: Alert, Awake, Oriented, Speech Clear, Moving All Extremities ( Skyla Hernandez) Psychiatric Psych Exam: Appropriate Responses (Skyla Hernandez) Assessment/Plan Discussed Condition With: Patient Assessment Summary: Anemia of CKD, Hypertension, End Stage Renal Disease Problem List: (1) ESRD on hemodialysis Plan: Continue HD TTS seen during idalysi son a 3K, 350 BFR, goal 3500 no electrolyte concerns avoid IVF and gadolinium AVF left arm, functions well (2) Toe gangrene Plan: s/p amputation 08/04 vascular following specimen sent to pathology he was placed on Bactrim that can increase serum K levels (3) A-fib Plan: rate controlled on cardizem and coreg not on anticoagulation (4) Hypertension Plan: monitor BP,continue home medications (5) Type 2 diabetes mellitus Plan: continue insulin therapy monitor glucose, goal 140-180 mg/dL (6) Metabolic bone disease Plan: continue Renvela phos level is acceptable (7) Anemia Plan: epogen with HD (Skyla Hernandez) Plan patient was seen and examined during dialysis. On 3K, UF goal is 3 liters. Tolerating it well. He can be discharged from renal standpoint. (Doni Floyd MD) Skyla Hernandez Aug 06, 2016 13:36 Doni Floyd MD Aug 06, 2016 13:58
[2016-08-06] MEDS: SENNOSIDES 8.6 MG TAB PO SCH (19:57)
[2016-08-06] MEDS: ATORVASTATIN 80 MG TAB PO SCH (19:57)
[2016-08-07] VITALS: BP 124/57; PULSE 97; RESP 17; TEMP 98.4; O2SAT 95
[2016-08-07] MEDS: HEPARIN SODIUM - SQ 10,000 UNITS/ML VIAL SQ SCH ×2 (00:20→09:43)
[2016-08-07 04:00] VITALS: BP 115/53; PULSE 119; RESP 17; TEMP 98.3; O2SAT 94
[2016-08-07] MEDS: SULFAMETHOXAZOLE-TRIMETHOPRIM 400-80 MG TAB PO SCH (05:35)
[2016-08-07] MEDS: MEDIUM DOSE INSULIN NOVOLOG SUPPLEMENTAL SCALE SQ SCH ×2 (06:29→10:49)
[2016-08-07] MEDS: SEVELAMER CARBONATE 800 MG TAB PO SCH ×2 (07:53→12:17)
[2016-08-07] MEDS: GABAPENTIN 100 MG CAP PO SCH ×2 (07:53→12:18)
[2016-08-07] MEDS: ISOSORBIDE MONONITRATE 60 MG TAB PO SCH (07:53)
[2016-08-07] MEDS: lamoTRIgine 25 MG TAB PO SCH (07:54)
[2016-08-07] MEDS: PANTOPRAZOLE SOD 40 MG DELAYED RELEASE TAB PO SCH (07:54)
[2016-08-07] MEDS: POLYETHYLENE GLYCOL 17 GM PKG PO SCH (07:54)
[2016-08-07] MEDS: CARVEDILOL 12.5 MG TAB PO SCH (07:54)
[2016-08-07 08:00] VITALS: BP 175/109; PULSE 119; RESP 21; TEMP 97.7; O2SAT 97
[2016-08-07] MEDS ORDERED: DILTIAZEM-CD 180 MG CAP ER PO SCH (09:00)
--- NOTE | 2016-08-07 09:14 | PD.VS.DC ---
Discharge Summary Admission Date: Aug 05, 2016 at 09:28 Discharge Date: Aug 07, 2016 Admission Diagnosis: (1) Amputated great toe of left foot Discharge Diagnosis: (1) Amputated great toe of left foot Status: Acute Brief History from admission Pt admitted with necrotic left great toe for several weeks with increased tissue loss Pt admitted for surgical intervention Procedure(s): L Open Ray amputation of great toe Significant Findings GENERAL: A&OX3, NAD, GCS15 SKIN: Warm and dry. Left great toe amputation site healing well without redness/ swelling/pain around the surrounding tissue. Minimal Sanguinous drainage present CARDIOVASCULAR: +S1,S2, RRR w/o M/G/R RESPIRATORY: BS CTA Bilat GASTROINTESTINAL: Abdomen soft, non-tender, nondistended. + BS presents all 4 quads MUSCULOSKELETAL: No cyanosis, or edema. + DP BLE Laboratory Tests Test 08/05/16 08/06/16 19:40 04:28 Blood Urea Nitrogen 43 MG/DL (7-18) 44 MG/DL (7-18) Creatinine 6.40 MG/DL 6.77 MG/DL (0.60-1.30) (0.60-1.30) Estimat Glomerular Filtration 9 ML/MIN (>89) 8 ML/MIN (>89) Rate Random Glucose 181 MG/DL 137 MG/DL (74-106) (74-106) Hospital Course: Pt admitted with necrotic left great toe for several weeks with increased tissue loss Pt admitted for surgical intervention Pt has done well post op w/o complication Pt OK for d/c today to SNF Continue w/d dressings daily Will see patient in our OPC next week for follow up Discharge Condition: Good Discharge Disposition: Discharge to SNF Discharge Instructions: Follow up in our OPC next week on 08/14/16 at 1015 Call the office to report any new concerns W/D dressing to L amputation site Change dressing daily or as needed if soiled Yaneth ZUNIGA [facility] [phone] Any questions or concerns: Call [facility] V[facility] Surgery at [facility] [phone] Yaneth Magaña [facility] Aug 07, 2016 09:14
--- NOTE | 2016-08-07 09:22 | PD.VS.PN ---
Subjective Subjective/Hospital Course Pt w/o complaints this am Reported he had a great night w/o pain Pt denies abdominal pain N/V Objective Vitals/I&O Date Time Temp Pulse Resp B/P Pulse Ox O2 Delivery O2 Flow Rate FiO2 08/07/16 08:00 97.7 119 21 175/109 97 08/07/16 04:00 98.3 119 17 115/53 94 08/07/16 00:00 98.4 97 17 124/57 95 08/06/16 21:26 94 21 08/06/16 20:00 97.8 94 18 136/60 94 08/06/16 12:00 98.3 109 17 173/76 94 08/06/16 09:34 95 21 Physical Exam GENERAL: A&OX#, NAD, GCS15 SKIN: Warm and dry. Amputation site L great toe with mild sanguinous drainage, NO R/S/O/P CARDIOVASCULAR: RRR, +S1,S2 RESPIRATORY: BS CTA Assessment and Plan Assessment: (1) Amputated great toe of left foot Status: Acute Plan Plan Pt D/C this am Will see pt in our OPC on Wednesday08/14/16 for f/u Continue W/D dressings Change daily Discharge Planning Today Yaneth Magaña Aug 07, 2016 09:22
[2016-08-07 10:30] VITALS: O2SAT 94
--- NOTE | 2016-08-07 10:49 | MP ---
cc: MARCO SOW MD DATE OF SURGERY: 08/05/2016 PREOPERATIVE DIAGNOSIS Left great toe osteomyelitis. POSTOPERATIVE DIAGNOSIS Left great toe osteomyelitis. PROCEDURE Left great toe and metatarsal amputation (ray amputation). ATTENDING SURGEON Marco Sow ANESTHESIA General. INDICATION Mr. Adams is a 66-year-old gentleman with diabetes. He has normal vasculature and is taken to the operating room for excision of his toe for sarika osteomyelitis. DESCRIPTION OF PROCEDURE Informed consent was obtained from the patient. He was taken to the operating room and placed supine on the operating table. An appropriate timeout was taken to ensure the patient's identity, operative site and planned procedure. The administration of one gram of vancomycin was initiated prior to skin incision and will be discontinued after the single preoperative dose. Vancomycin was chosen because of the patient's end-stage renal disease. Everyone in the room agreed with the timeout and we proceeded. His left foot was prepped and draped. An incision was made at the base of the left first toe, carried down to the subcutaneous tissue with electrocautery. The metatarsophalangeal joint space was entered and the toe was amputated and passed off the table as a specimen. An oscillating saw and rongeur were used to debride the metatarsal head. The wound was irrigated, made hemostatic and wrapped in Kerlix. There were no complications. I was present and scrubbed and performed the entire procedure. Marco Sow MD RJF/BT /10:49 AM /10:42 AM
[2016-08-07 11:51] VITALS: PULSE 123
[2016-08-07 12:00] VITALS: BP 154/83; PULSE 92; RESP 14; TEMP 97; O2SAT 93
--- NOTE | 2016-08-07 12:01 | HHI.NPPN ---
Subjective Complaints: Obesity General Problems: Anemia Renal Failure: Chronic Interval History Dialyzed yesterday. To be discharged today. (Skyla Hernandez) Objective Data Data 08/06/16 08/07/16 19:00 07:00 Intake Total 100 ml 480 ml Output Total 3500 ml Balance -3400 ml 480 ml Intake Oral 100 ml 480 ml IV Total 0 ml Hemodialysis 3500 ml # Voids 2 2 # Bowel Movements 1 Vital Signs Date Time Temp Pulse Resp B/P Pulse Ox O2 Delivery O2 Flow Rate FiO2 08/07/16 11:51 123 08/07/16 08:00 97.7 119 21 175/109 97 08/07/16 04:00 98.3 119 17 115/53 94 08/07/16 00:00 98.4 97 17 124/57 95 08/06/16 21:26 94 21 08/06/16 20:00 97.8 94 18 136/60 94 (Skyla Hernandez) -: 08/06/16 0428 Physical Exam General Appearance: Well Developed, Well Nourished, No Acute Distress, Comfortable, Obese (Skyla Hernandez) Throat Throat Exam: Oral Mucosa Rodriguez Hevia & Moist (Skyla Hernandez) Pulmonary Resp Exam: Clear Bilaterally, Breath Sounds Equal, No Distress (Skyla Hernandez) Cardiology CV Exam: Good Perfusion, Irregular (Skyla Hernandez) Gastrointestinal/Abdomen GI Exam: Soft, Non-Tender, Bowel Sounds Present (Skyla Hernandez) Musculoskeletal MS Exam: Joints Intact, Normal Tone (Skyla Hernandez) Integumentary Skin Exam: Clear, Warm, Dry, Intact (Skyla Hernandez) Extremeties Extremities Exam: No Edema, Pedal Pulses Palpable Extremeties Remarks left toe amputation (Skyla Hernandez) Neurologic Neuro Exam: Alert, Awake, Oriented, Speech Clear, Moving All Extremities ( Skyla Hernandez) Psychiatric Psych Exam: Appropriate Responses (Skyla Hernandez) Assessment/Plan Discussed Condition With: Patient Assessment Summary: Anemia of CKD, Hypertension, End Stage Renal Disease Problem List: (1) ESRD on hemodialysis Plan: Continue HD TTS, 3500 ml UF yesterday can resume outpatient HD arrangements if discharged no electrolyte concerns avoid IVF and gadolinium AVF left arm, functions well (2) Toe gangrene Plan: s/p amputation 08/04 vascular following specimen sent to pathology he was placed on Bactrim that can increase serum K levels (3) A-fib Plan: rate controlled on cardizem and coreg not on anticoagulation (4) Hypertension Plan: monitor BP,continue home medications (5) Type 2 diabetes mellitus Plan: continue insulin therapy monitor glucose, goal 140-180 mg/dL (6) Metabolic bone disease Plan: continue Renvela phos level is acceptable (7) Anemia Plan: epogen with HD (Skyla Hernandez) Plan patient was seen and examined. Agree with above assessment and plan. (Doni Floyd MD) Skyla Hernandez Aug 07, 2016 12:01 Doni Floyd MD Aug 07, 2016 15:56
== END 2016-08-07 15:50 ==
LOC: HSDC 08:25 → HSDI 09:28 → N07A 15:31
PROVIDERS: ADMIT Surgery; ATTEND Surgery
DX: E11.69 Type 2 diabetes mellitus with other specified complication (principal); M86.172 Other acute osteomyelitis, left ankle and foot; E11.52 Type 2 diabetes mellitus with diabetic peripheral angiopathy with gangrene; I12.0 Hypertensive chronic kidney disease with stage 5 chronic kidney disease or end stage renal disease; E11.22 Type 2 diabetes mellitus with diabetic chronic kidney disease; D63.1 Anemia in chronic kidney disease; N18.6 End stage renal disease; I25.10 Atherosclerotic heart disease of native coronary artery without angina pectoris; E78.5 Hyperlipidemia, unspecified; I48.91 Unspecified atrial fibrillation; E88.89 Other specified metabolic disorders; E03.9 Hypothyroidism, unspecified; K21.9 Gastro-esophageal reflux disease without esophagitis; E66.01 Morbid (severe) obesity due to excess calories; F32.9 Major depressive disorder, single episode, unspecified; Z68.41 Body mass index [BMI] 40.0-44.9, adult; Z95.5 Presence of coronary angioplasty implant and graft; Z99.2 Dependence on renal dialysis; Z85.038 Personal history of other malignant neoplasm of large intestine; Z90.49 Acquired absence of other specified parts of digestive tract; Z88.5 Allergy status to narcotic agent
CPT/HCPCS: 28810; 80048; 82948; 84100; 84132; 88305; 88311; 96374; 97110; 97116; 97162; G0257; G0378; J1644; J1815; J2370; J3010; J3370; J7040; L3260; Q4081; 90935; G8987-GP; G8988-GP

== ENCOUNTER 2016-09-23 14:55 | Inpatient (IN) | payer MEDICARE, BC ==
[~2016-09-23] VITALS: Ht 180.3 cm; Wt 144.1 kg
[~2016-09-23 14:55] MED LIST changes: -LANTUS2P SQ
[2016-09-23 16:00] VITALS: BP 136/88; PULSE 105; RESP 21; TEMP 98.1; O2SAT 97
[2016-09-23] MEDS ORDERED: ALPR0.25 PO (16:59)
[2016-09-23] MEDS ORDERED: AMLO10TA2 PO (17:00)
[2016-09-23] MEDS ORDERED: DEXTROSE 50% IN WATER 50 ML VIAL(D50) IV PUSH PRN (17:00)
[2016-09-23] MEDS ORDERED: GLUCAGON 1 MG/ML VIAL OTHER PRN (17:00)
[2016-09-23 17:41] LABS: AUTOMATED NEUTROPHIL # 9.6 TH/MM3 (1.8-7.7); BASOPHIL # 0.1 TH/MM3 (0-0.2); BASOPHIL % 0.4 % (0.0-2.0); EOSINOPHIL # 0.2 TH/MM3 (0-0.4); EOSINOPHIL % 1.4 % (0.0-4.0); HEMATOCRIT 31.2 % (39.0-51.0); HEMO FLAGS DIFF FINAL; LYMPH % 11.5 % (9.0-44.0); LYMPHOCYTE # 1.4 TH/MM3 (1.0-4.8); MEAN CELL VOLUME 87.2 FL (80.0-100.0); MONO % 8.3 % (0.0-8.0); NEUT % 78.4 % (16.0-70.0); PLATELET COUNT 264 TH/MM3 (150-450); RED BLOOD COUNT 3.58 MIL/MM3 (4.50-5.90); RED CELL DISTRIBUTION WIDTH 17.1 % (11.6-17.2); WHITE BLOOD COUNT 12.2 TH/MM3 (4.0-11.0)
[2016-09-23 18:00] LABS: ANION GAP 14 MEQ/L (5-15); BICARBONATE 23.8 MEQ/L (21.0-32.0); BLOOD UREA NITROGEN 64 MG/DL (7-18); CHLORIDE 97 MEQ/L (98-107); GLOMERULAR FILTRATION RATE 8 ML/MIN (>89); SODIUM (NA) 135 MEQ/L (136-145)
[2016-09-23] MEDS: HEPARIN SODIUM - SQ 10,000 UNITS/ML VIAL SQ SCH (18:23)
[2016-09-23] MEDS: PIPERACIL-TAZO 3.375 GM PREMIX 50 ML IV SCH ×2 (18:23→22:14)
[2016-09-23] MEDS: VANCOMYCIN 1,000 MG/NS 250 ML IV SCH ×2 (19:48)
--- NOTE | 2016-09-23 20:32 | HHI.HP ---
History of Present Illness Chief Complaint: L great toe amputation cellulitis History of Present Illness 66 yo male with ESRD and DM for whom I performed a L great toe amputation on , was sent home with home care but wound has progressed. Angiogram prior to toe amputation showed in line flow to DP. Pt notes chills and hyperglycemia. No fevers, malaise. Past/Family/Social History Past Medical History DM ESRD Hep C CAD colon CA HTN CHF Past Surgical History angio 07/20 (diagnostic) lap herbie lap colectomy tonsillectomy L UE AVF Social History lives at home, non smoker Home Medications Reported Medications Amlodipine 10 Mg Tab10 Mg PO DAILY #30 TAB Ref 0 09/23/16 Alprazolam 0.25 Mg Tab0.25 Mg PO Q8H PRN (ANXIETY) Ref 0 09/23/16 Insulin Aspart Inj (Novolog Inj)1,000 Unit/10 Ml Vial SQ QID #10 ML Ref 0 Sliding Scale as directed. 08/03/16 Hydrocodone-Acetaminophen 5-325 mg Tab1 Tab PO Q4H PRN (PAIN) Ref 0 08/03/16 Sevelamer Carbonate (Renvela)800 Mg [id number] Mg PO TID #90 TAB Ref 0 08/03/16 Lamotrigine 25 Mg Vwb605 Mg PO BID #60 TAB Ref 0 08/03/16 Omeprazole 40 Mg Cap40 Mg PO DAILY #30 CAP Ref 0 05/07/16 Nitroglycerin SL (Nitrostat SL)0.4 Mg Subl0.4 Mg SL DIRECTED PRN (CHEST PAIN ) #100 TAB.SL Ref 0 1 tablet under the tongue as needed for chest pain. Repeat every 5 minutes for a total of 3 DOSES or call 911 if NO relief. 05/07/16 Diltiazem ER 24 HR 240 Mg [id number] Mg PO DAILY #30 CAP Ref 0 03/15/16 Isosorbide Mononitrate ER 60 Mg Buu705 Mg PO BID #30 TAB Ref 0 03/15/16 Gabapentin 100 Mg Bkw472 Mg PO TID #90 CAP Ref 0 02/13/16 Carvedilol (Coreg)25 Mg Tab25 Mg PO DAILY #60 TAB Ref 0 02/13/16 Atorvastatin 80 Mg Tab80 Mg PO HS #30 TAB Ref 0 02/13/16 Coded Allergies: Demerol (Verified Allergy, Severe, HYPERTENSION, 08/05/16) Morphine (Verified Allergy, Severe, HYPERTENSION, 08/05/16) Review of Systems Constitutional: COMPLAINS OF: Chills, DENIES: Fever, Weight gain, Weight loss , Dizziness, Change in appetite Musculoskeletal: COMPLAINS OF: Muscle aches Physical Exam Vitals/I&O Date Time Temp Pulse Resp B/P Pulse Ox O2 Delivery O2 Flow Rate FiO2 09/23/16 16:00 98.1 105 21 136/88 97 Neuro: alert, emotional about wound deterioration HEENT: NC/AT Neck: no JVD Heart: reg rate, no M Lungs: clear B Abdomen: obese, nontender Vascular: Nonpalpable pedal pulse ? edema AIDE 0.7 Extremities: Necrotic, foul smelling wound L great toe with inflammation around it No purulence, but + serous drainage Laboratory Tests Test 09/23/16 17:23 White Blood Count 12.2 Red Blood Count 3.58 Hemoglobin 9.7 Hematocrit 31.2 Mean Corpuscular Volume 87.2 Mean Corpuscular Hemoglobin 27.0 Mean Corpuscular Hemoglobin 31.0 Concent Red Cell Distribution Width 17.1 Platelet Count 264 Mean Platelet Volume 6.7 Neutrophils (%) (Auto) 78.4 Lymphocytes (%) (Auto) 11.5 Monocytes (%) (Auto) 8.3 Eosinophils (%) (Auto) 1.4 Basophils (%) (Auto) 0.4 Neutrophils # (Auto) 9.6 Lymphocytes # (Auto) 1.4 Monocytes # (Auto) 1.0 Eosinophils # (Auto) 0.2 Basophils # (Auto) 0.1 CBC Comment DIFF FINAL Differential Comment Sodium Level 135 Potassium Level 4.0 Chloride Level 97 Carbon Dioxide Level 23.8 Anion Gap 14 Blood Urea Nitrogen 64 Creatinine 7.18 Estimat Glomerular Filtration 8 Rate Random Glucose 97 Calcium Level 9.2 Assessment and Plan Plan 1. Admit with aggressive wound care; plan for operative debridement tomorrow ( ) 2. Diabetic diet and NPO after MN 3. Nephrology c/s for HD 4. VANC/Zosyn for diabetic foot infection 5. Aggressive blood sugar control including checking A1c Marco Sow MD Sep 23, 2016 20:32
[2016-09-23] MEDS: LOW DOSE INSULIN NOVOLOG SUPPLEMENTAL SCALE SQ SCH (21:00)
--- NOTE | 2016-09-23 21:26 | RADRPT ---
EXAM DATE/TIME: 09/23/2016 20:58 [facility] COMPARISON: MRI FOOT LEFT W/O CONTRAST, July 11, 2016, 9:43. INDICATIONS : Left foot pain. Osteomyelitis. MEDICAL HISTORY : Osteomyelitis. SURGICAL HISTORY : Left foot first digit amputation. ENCOUNTER: Initial ACUITY: 1 day PAIN SCORE: 3/10 LOCATION: Left foot. FINDINGS: Since the prior MRI, the great toe has been amputated. There is soft tissue ulceration of the stump a nd cortical irregularity of the first metatarsal head, especially medially. Both sesamoids also appea r indistinct. CONCLUSION: Interim great toe amputation since the MRI. Suspected osteomyelitis of the first metatarsal head. Telly Whitley MD on September 23, 2016 at 21:23 Board Certified Radiologist. This report was verified electronically.
[2016-09-23] MEDS: ISOSORBIDE MONONITRATE 60 MG TAB PO SCH (22:12)
[2016-09-23] MEDS: ALPRAZolam 0.25 MG TAB PO SCH (22:13)
[2016-09-23] MEDS: ATORVASTATIN 80 MG TAB PO SCH (22:13)
[2016-09-23] MEDS: lamoTRIgine 100 MG TAB PO SCH (22:13)
[2016-09-23] MEDS: GABAPENTIN 100 MG CAP PO SCH (22:13)
[2016-09-23 22:15] VITALS: BP 152/85; PULSE 98; RESP 20; TEMP 99.2; O2SAT 97
[2016-09-23] MEDS: SODIUM CHLOR 0.9% 1000 ML INJ 1,000 ML IV SCH (22:21)
[2016-09-24] VITALS (7 sets, daily range): BP systolic 97–137; BP diastolic 59–87; PULSE 93–110; RESP 18–20; TEMP 96.8–99.8; O2SAT 93–98
[2016-09-24] MEDS: HEPARIN SODIUM - SQ 10,000 UNITS/ML VIAL SQ SCH ×4 (01:39→19:38)
[2016-09-24] MEDS: PANTOPRAZOLE SOD 40 MG DELAYED RELEASE TAB PO SCH (04:59)
[2016-09-24] MEDS: ALPRAZolam 0.25 MG TAB PO SCH ×3 (04:59→20:20)
[2016-09-24] MEDS: PIPERACIL-TAZO 3.375 GM PREMIX 50 ML IV SCH (05:04)
[2016-09-24] MEDS: VANCOMYCIN 1,000 MG/NS 250 ML IV SCH ×2 (06:38)
[2016-09-24] MEDS: LOW DOSE INSULIN NOVOLOG SUPPLEMENTAL SCALE SQ SCH ×4 (06:41→20:25)
[2016-09-24] MEDS: ISOSORBIDE MONONITRATE 60 MG TAB PO SCH ×2 (07:00→16:22)
[2016-09-24] MEDS: SODIUM CHLOR 0.9% 1000 ML INJ 1,000 ML IV SCH (07:07)
[2016-09-24] MEDS: SEVELAMER CARBONATE 800 MG TAB PO SCH ×3 (08:00→16:28)
[2016-09-24] MEDS: lamoTRIgine 100 MG TAB PO SCH ×2 (08:19→20:12)
[2016-09-24] MEDS: GABAPENTIN 100 MG CAP PO SCH ×3 (08:19→18:46)
[2016-09-24] MEDS ORDERED: SODIUM CHLOR 0.9% 1000 ML INJ 1,000 ML IV PRN ×3 (08:31)
[2016-09-24] MEDS ORDERED: GENTAMICIN SULFATE (DIALYSIS USE ONLY) 20 MG/2 ML VIAL IV PRN (08:45)
[2016-09-24] MEDS ORDERED: ONDANSETRON HCL 4 MG/2 ML VIAL IV PRN (08:45)
[2016-09-24] MEDS ORDERED: HEPARIN SODIUM - IV 10,000 UNITS/10 ML VIAL PRN (08:45)
[2016-09-24] MEDS ORDERED: diphenhydrAMINE HCL 25 MG CAP PO PRN (08:45)
[2016-09-24] MEDS ORDERED: MANNITOL 12.5 GM/50 ML VIAL IV PRN (08:45)
[2016-09-24] MEDS ORDERED: NITROGLYCERIN 0.4 MG SL 25 TABS/BTL SL PRN (08:45)
[2016-09-24] MEDS ORDERED: ALBUMIN HUMAN 25% 25 GM/100 ML BAGP IV PRN (08:45)
[2016-09-24] MEDS ORDERED: ACETAMINOPHEN 325 MG TAB PO PRN (08:45)
[2016-09-24] MEDS ORDERED: cloNIDine HCL 0.1 MG TAB PO PRN (08:45)
[2016-09-24] MEDS ORDERED: HEPARIN SODIUM - IV 10,000 UNITS/10 ML VIAL IVF PRN (08:45)
--- NOTE | 2016-09-24 10:05 | PD.VS.PN ---
Pre-operative Note Pre-operative diagnosis: L foot osteo and diabetic foot infection Planned procedure: L foot debridement and metatarsectomy Interval History: Pt admitted last night. No chills or fevers. Ready for surgery Labs: Laboratory Results Test 09/23/16 17:23 White Blood Count 12.2 TH/MM3 (4.0-11.0) Red Blood Count 3.58 MIL/MM3 (4.50-5.90) Hemoglobin 9.7 GM/DL (13.0-17.0) Hematocrit 31.2 % (39.0-51.0) Mean Corpuscular Volume 87.2 FL (80.0-100.0) Mean Corpuscular Hemoglobin 27.0 PG (27.0-34.0) Mean Corpuscular Hemoglobin 31.0 % Concent (32.0-36.0) Red Cell Distribution Width 17.1 % (11.6-17.2) Platelet Count 264 TH/MM3 (150-450) Mean Platelet Volume 6.7 FL (7.0-11.0) Sodium Level 135 MEQ/L (136-145) Potassium Level 4.0 MEQ/L (3.5-5.1) Chloride Level 97 MEQ/L (98-107) Carbon Dioxide Level 23.8 MEQ/L (21.0-32.0) Anion Gap 14 MEQ/L (5-15) Blood Urea Nitrogen 64 MG/DL (7-18) Random Glucose 97 MG/DL (74-106) Calcium Level 9.2 MG/DL (8.5-10.1) Blood: none needed Imaging: Last Impressions Foot X-Ray 09/23/16 0000 Signed Impressions: Service Date/Time: Friday, September 23, 2016 20:58 - CONCLUSION: Interim great toe amputation since the MRI. Suspected osteomyelitis of the first metatarsal head. Telly Whitley MD Orders: NPO On systemic antibiotics Post-operative destination: PACU Operative site marked: Yes Consent: Informed consent will be obtained from Jj Adams. I have explained the procedure in detail and discussed the risks, benefits, and potential complications. All questions have been answered. Marco Sow MD Sep 24, 2016 10:05
--- NOTE | 2016-09-24 10:48 | HHI.PR ---
Immediate Post Op Note Procedure Date: Sep 24, 2016 Pre Op Diagnosis: L first toe osteomyelitis Post Op Diagnosis: L first toe osteomyelitis Surgeon: Marco Sow Department Manager(s): none Procedure: L 1st metatarsectomy Findings: decent perfusion, significant myonecrosis and osteo Complications: none Specimen(s) removed: L 1st metatarsectomy, soft tissue Estimated blood loss: 30 mL Anesthesia: General Drains: None Fluids: 100mL IVF Patient to: PACU Patient Condition: Good Implant/Devices: SEE IMPLANT LOG (if applicable) Date/Time of Procedure: SEE SURGICAL CARE RECORD Marco Sow MD Sep 24, 2016 10:48
[2016-09-24] MEDS ORDERED: DO NOT ADM ANY ANTICOAGULANT DRUGS PRN (11:00)
[2016-09-24] MEDS ORDERED: METOPROLOL TARTRATE 5 MG/5 ML VIAL ONE (11:11)
[2016-09-24] MEDS: METOPROLOL TARTRATE 5 MG/5 ML VIAL IV PUSH SCH ×5 (11:22→11:52)
[2016-09-24] MEDS ORDERED: *HYDROmorphone PF 1 MG VIAL PERIprocedural Use ONLY ONE (11:29)
[2016-09-24] MEDS ORDERED: PHENYLEPH/NS 1000 MCG/10 ML SYR IV ONE (12:00)
[2016-09-24] MEDS ORDERED: ONDANSETRON HCL 4 MG/2 ML VIAL IV PUSH ONE (12:00)
[2016-09-24] MEDS ORDERED: HYDROmorphone HCL PF 1 MG/ML VIAL IV ONE (12:00)
[2016-09-24] MEDS ORDERED: PROPOFOL 200 MG/20 ML AMP IV ONE (12:00)
--- NOTE | 2016-09-24 13:01 | PD.CONS ---
HPI Service [facility] Consult Requested By Reason for Consult medical management Primary Care Physician No Primary Care Physician Diagnoses: History of Present Illness patient is a 66 y/o male with history of ESRD-on HD, diabetes mellitus, hypertension, colon cancer and osteomyelitis of the left great toe was admitted to the hospital and underwent left metatarsectomy earlier. the patient was seen during his HD. at the time of my evaluation he was resting comfortably with no distress. denies any pain, chest pain, sob, nausea or dizziness. of the patient underwent left great toe amputation recently. Review of Systems Constitutional: DENIES: Fever, Weight loss, Chills, Night Sweats Eyes: DENIES: Blurred vision, Diplopia, Vision loss, Double Vision Ears, nose, mouth, throat: DENIES: Tinnitus, Vertigo, Throat pain, Epistaxis Respiratory: DENIES: Apneas, Cough, Snoring, Wheezing, Hemoptysis, Sputum production, Shortness of breath Cardiovascular: DENIES: Chest pain, Palpitations, Syncope, Dyspnea on Exertion , PND, Lower Extremity Edema, Orthopnea, Claudication Gastrointestinal: DENIES: Abdominal pain, Black stools, Bloody stools, Constipation, Diarrhea, Nausea, Vomiting, Difficulty Swallowing, Anorexia Genitourinary: DENIES: Urinary frequency, Urgency, Hematuria, Dysuria Musculoskeletal: DENIES: Joint pain, Muscle aches, Stiffness, Joint Swelling Integumentary: DENIES: Rash Neurologic: DENIES: Abnormal gait, Headache, Localized weakness, Paresthesias, Seizures, Speech Problems, Tremor, Poor Balance Psychiatric: DENIES: Anxiety, Confusion, Mood changes, Depression, Hallucinations, Agitation, Suicidal Ideation, Homicidal Ideation, Delusions Past Family Social History Allergies: Coded Allergies: Demerol (Verified Allergy, Severe, HYPERTENSION, 08/05/16) Morphine (Verified Allergy, Severe, HYPERTENSION, 08/05/16) Past Medical History ESRD diabetes mellitus hypertension colon cancer Past Surgical History recent left great toe amputation appendectomy cholecystectomy colon resection Reported Medications omeprazole coreg cardizem insulin sliding scale renvela isosorbide mononitrate atorvastatin Active Ordered Medications Current Medications Dextrose (D50w (Vial) Inj) 25 ml UNSCH PRN IV PUSH HYPOGLYCEMIA - SEE COMMENTS ; Start 09/23/16 at 17:00 Glucagon 1 mg 1 mg UNSCH PRN OTHER HYPOGLYCEMIA-SEE COMMENTS; Start 09/23/16 at 17:00 Vancomycin HCl 1000 mg/Sodium Chloride 250 ml @ 250 mls/hr Q12H IV Last administered on 09/24/16 06:38; Start 09/23/16 at 18:00; Stop 09/24/16 at 10:07 ; Status DC Piperacillin Sod/ Tazobactam Sod (Zosyn 3.375 Gm Premix) 50 ml @ 100 mls/hr Q6H IV Last administered on 09/24/16 05:04; Start 09/23/16 at 17:00; Stop at 10:08; Status DC Heparin Sodium (Porcine) (Heparin Inj) 5,000 units Q8H SQ Last administered on 09/24/16 01:39; Start 09/23/16 at 17:00 Insulin Aspart 1 1 ACHS SLIDING SCALE SQ ; Start 09/23/16 at 21:00 Sodium Chloride (NS 1000 ml Inj) 1,000 ml @ 90 mls/hr Q11H7M IV Last administered on 09/23/16 22:21; Start 09/23/16 at 20:00; Stop 09/24/16 at 08:41 ; Status DC Atorvastatin Calcium (Lipitor) 80 mg HS PO Last administered on 09/23/16 22:13 ; Start 09/23/16 at 21:00 Carvedilol (Coreg) 25 mg DAILY@08 PO ; Start 09/24/16 at 08:00 Gabapentin (Neurontin) 100 mg TID PO Last administered on 09/24/16 08:19; Start 09/23/16 at 20:00 Pantoprazole Sodium (Protonix) 40 mg DAILY@06 PO Last administered on 04:59; Start 09/24/16 at 06:00 Sevelamer Carbonate (Renvela) 800 mg TIDAC PO ; Start 09/24/16 at 08:00 Lamotrigine (LaMICtal) 100 mg BID PO Last administered on 09/24/16 08:19; Start 09/23/16 at 21:00 Alprazolam (Xanax) 0.25 mg Q8H PO Last administered on 09/24/16 04:59; Start 09/23/16 at 22:00 Amlodipine Besylate (Norvasc) 10 mg DAILY PO ; Start 09/24/16 at 09:00 Isosorbide Mononitrate (Imdur) 120 mg BID@07,18 PO Last administered on t 22:12; Start 09/23/16 at 18:56 Diltiazem HCl 180 mg 180 mg DAILY PO ; Start 09/24/16 at 09:00 Sodium Chloride (NS 1000 ml Inj) 1,000 ml @ 0 mls/hr Q0M PRN IV For Prime & Rinse Back; Start 09/24/16 at 08:31 Heparin Sodium (Porcine) 8000 units 8,000 units UNSCH PRN IVF WITH DIALYSIS; Start 09/24/16 at 08:45 Sodium Chloride 1,000 ml @ 200 mls/hr Q5H PRN IV WITH DIALYSIS; Start 09/24/16 at 08:31 Sodium Chloride (NS 1000 ml Inj) 1,000 ml @ 0 mls/hr Q0M PRN IV WITH DIALYSIS; Start 09/24/16 at 08:31 Mannitol (Mannitol Inj) 12.5 gm UNSCH PRN IV WITH DIALYSIS; Start 09/24/16 at 08:45 Albumin Human (Albumin 25% Inj) 25 gm UNSCH PRN IV WITH DIALYSIS; Start at 08:45 Sodium Chloride (NS Flush) 5 ml UNSCH PRN IV FLUSH WITH DIALYSIS; Start at 08:45 Heparin Sodium (Porcine) (Heparin Inj) UNSCH PRN .XX WITH DIALYSIS; Start at 08:45 Gentamicin Sulfate (Gentamicin (Dialysis) Inj) 20 mg UNSCH PRN IV WITH DIALYSIS ; Start 09/24/16 at 08:45 Ondansetron HCl (Zofran Inj) 4 mg UNSCH PRN IV WITH DIALYSIS; Start 09/24/16 at 08:45 Acetaminophen (Tylenol) 650 mg UNSCH PRN PO for headach, pain 1-10, > 101F; Start 09/24/16 at 08:45 Diphenhydramine HCl (Benadryl) 25 mg UNSCH PRN PO for hives/itching/anaphylaxis ; Start 09/24/16 at 08:45 Nitroglycerin (Nitrostat Sl) 0.4 mg UNSCH PRN SL CHEST PAIN; Start 09/24/16 at 08:45 Clonidine (Catapres) 0.1 mg UNSCH PRN PO for BP > 180/100 X 2 readings; Start 09/24/16 at 08:45 Epoetin Puneet (Epogen Inj) 10,000 units UNSCH PRN IV WITH DIALYSIS; Start at 08:45 Gelatin 1 foam 1 foam UNSCH PRN TOP SEE LABEL COMMENTS; Start 09/24/16 at 08:45 Vancomycin HCl 1000 mg/Sodium Chloride 250 ml @ 250 mls/hr Q48H IV ; Start at 06:00; Stop 10/08/16 at 06:00 Piperacillin Sod/ Tazobactam Sod (Zosyn 2.25 Gm Premix) 50 ml @ 100 mls/hr Q8H IV ; Start 09/24/16 at 13:00; Stop 10/08/16 at 12:59 Metoprolol Tartrate (Lopressor Inj) 5 mg STK-MED ONCE .ROUTE ; Start 09/24/16 at 11:11; Stop 09/24/16 at 11:12; Status DC Fentanyl Citrate (fentaNYL INJ) 100 mcg STK-MED ONCE .ROUTE ; Start 09/24/16 at 11:16; Stop 09/24/16 at 11:17; Status DC Hydromorphone HCl (*DILAUDID PF INJ PERIprocedural ONLY) 1 mg STK-MED ONCE .ROUTE ; Start 09/24/16 at 11:29; Stop 09/24/16 at 11:30; Status DC Family History heart disease in father and sister. Social History doesn't smoke. quit drinking. Physical Exam Vital Signs Vital Signs Date Time Temp Pulse Resp B/P Pulse Ox O2 Delivery O2 Flow Rate FiO2 09/24/16 11:30 95 21 09/24/16 08:00 97.4 108 18 97/60 95 09/24/16 04:15 110 09/24/16 04:00 96.8 102 18 137/87 98 09/24/16 00:00 96.8 93 20 132/65 97 09/23/16 22:15 99.2 98 20 152/85 97 09/23/16 16:00 98.1 105 21 136/88 97 Physical Exam GENERAL: This is a well-nourished, well-developed patient, in no apparent distress. SKIN: No rashes, ecchymoses or lesions. Cool and dry. HEAD: Atraumatic. Normocephalic. No temporal or scalp tenderness. EYES: Pupils equal round and reactive. Extraocular motions intact. No scleral icterus. No injection or drainage. ENT: Nose without bleeding, purulent drainage or septal hematoma. Throat without erythema, tonsillar hypertrophy or exudate. Uvula midline. Airway patent. NECK: Trachea midline. No JVD or lymphadenopathy. Supple, nontender, no meningeal signs. CARDIOVASCULAR: Regular rate and rhythm without murmurs, gallops, or rubs. RESPIRATORY: Clear to auscultation. Breath sounds equal bilaterally. No wheezes , rales, or rhonchi. GASTROINTESTINAL: Abdomen soft, non-tender, nondistended. No hepato-splenomegaly , or palpable masses. No guarding. MUSCULOSKELETAL:left foot covered with clean dressing. NEUROLOGICAL: Awake and alert. Cranial nerves II through XII intact. Motor and sensory grossly within normal limits. Five out of 5 muscle strength in all muscle groups. Normal speech. Laboratory Laboratory Tests Test 09/23/16 17:23 White Blood Count 12.2 Red Blood Count 3.58 Hemoglobin 9.7 Hematocrit 31.2 Mean Corpuscular Volume 87.2 Mean Corpuscular Hemoglobin 27.0 Mean Corpuscular Hemoglobin 31.0 Concent Red Cell Distribution Width 17.1 Platelet Count 264 Mean Platelet Volume 6.7 Neutrophils (%) (Auto) 78.4 Lymphocytes (%) (Auto) 11.5 Monocytes (%) (Auto) 8.3 Eosinophils (%) (Auto) 1.4 Basophils (%) (Auto) 0.4 Neutrophils # (Auto) 9.6 Lymphocytes # (Auto) 1.4 Monocytes # (Auto) 1.0 Eosinophils # (Auto) 0.2 Basophils # (Auto) 0.1 CBC Comment DIFF FINAL Differential Comment Sodium Level 135 Potassium Level 4.0 Chloride Level 97 Carbon Dioxide Level 23.8 Anion Gap 14 Blood Urea Nitrogen 64 Creatinine 7.18 Estimat Glomerular Filtration 8 Rate Random Glucose 97 Calcium Level 9.2 Result Diagram: 09/23/16 1723 09/23/16 1723 Imaging Last Impressions Foot X-Ray 09/23/16 0000 Signed Impressions: Service Date/Time: Friday, September 23, 2016 20:58 - CONCLUSION: Interim great toe amputation since the MRI. Suspected osteomyelitis of the first metatarsal head. Telly Whitley MD Assessment and Plan Assessment and Plan A/P - left great toe osteomyelitis- s/p left metatarsal resection continue with IV antibiotics and pain control- management per vascular surgery -diabetes mellitus; accu-check with SSI- will verify the home insulin regimen and check A1c -hypertension; resume coreg, cardizem and imdur- will continue to monitor and adjust the regimen as needed -ESRD-on HD; HD per nephrology. -anemia of chronic disease; epogen with HD- will monitor. -dyslipidemia; resume statin -colon cancer- f/u as outpatient -DVT prophylaxis; resume subq heparin with ok with surgery. thank you for the consult. Discussed Condition With the patient. Teodoro Dangelo MD Sep 24, 2016 13:01
[2016-09-24] MEDS: EPOETIN ALFA 10,000 UNITS/ML VIAL IV PRN (13:08)
[2016-09-24] MEDS: GELATIN 12 MM/7 MM FOAM TOP PRN (13:09)
--- NOTE | 2016-09-24 15:52 | PD.CONS ---
HPI Service Nephrology Consult Requested By Reason for Consult ESRD on HD Primary Care Physician No Primary Care Physician History of Present Illness This is a 66 y/o male dialysis patient who was admitted for surgery and antibiotic therapy for suspected osteomyelitis vs gangrene. He had Left great toe amputation on 08/05, had been doing well. He recently has had discoloration of his 1st MTJ on left side for several weeks, having difficulty ambulating. PMH of HTN, a fib, Colon CA s/p hemicolectomy, anemia, DM II, and metabolic bone disease. He was taken off eliquis (for A fib) due to GI bleeding. He is on hemodialysis TTS, seen during dialysis today. He is not having any acute issues. We were consulted for dialysis management. (Skyla Hernandez) Review of Systems Constitutional: COMPLAINS OF: Fatigue, DENIES: Weight gain Musculoskeletal: COMPLAINS OF: Joint pain, Stiffness, Joint Swelling Neurologic: COMPLAINS OF: Abnormal gait (Skyla Hernandez) Past Family Social History Allergies: Coded Allergies: Demerol (Verified Allergy, Severe, HYPERTENSION, 08/05/16) Morphine (Verified Allergy, Severe, HYPERTENSION, 08/05/16) Past Medical History ESRD on HD T-TH-Sat DM II CAD Hyperlipidemia A fib, was taken off eliquis Hypertension Hx GI bleed, recurrent Anemia Metabolic Bone disorder Hypothyroidism GERD Depression Obesity. Learning disability Past Surgical History angio LLE 07/20 (diagnostic) lap herbie lap colectomy tonsillectomy L UE AVF Reported Medications Amlodipine 10 Mg Tab10 Mg PO DAILY #30 TAB Ref 0 Alprazolam 0.25 Mg Tab0.25 Mg PO Q8H PRN (ANXIETY) Ref 0 Insulin Aspart Inj (Novolog Inj)1,000 Unit/10 Ml Vial SQ QID #10 ML Ref 0 Sliding Scale as directed. Hydrocodone-Acetaminophen 5-325 mg Tab1 Tab PO Q4H PRN (PAIN) Ref 0 Sevelamer Carbonate (Renvela)800 Mg [id number] Mg PO TID #90 TAB Ref 0 Lamotrigine 25 Mg [id number] Mg PO BID #60 TAB Ref 0 Omeprazole 40 Mg Cap40 Mg PO DAILY #30 CAP Ref 0 Nitroglycerin SL (Nitrostat SL)0.4 Mg Subl0.4 Mg SL DIRECTED PRN (CHEST PAIN ) #100 TAB.SL Ref 0 1 tablet under the tongue as needed for chest pain. Repeat every 5 minutes for a total of 3 DOSES or call 911 if NO relief. Diltiazem ER 24 HR 240 Mg [id number] Mg PO DAILY #30 CAP Ref 0 Isosorbide Mononitrate ER 60 Mg Mle454 Mg PO BID #30 TAB Ref 0 Gabapentin 100 Mg Xsj025 Mg PO TID #90 CAP Ref 0 Carvedilol (Coreg)25 Mg Tab25 Mg PO DAILY #60 TAB Ref 0 Atorvastatin 80 Mg Tab80 Mg PO HS #30 TAB Active Ordered Medications Current Medications Medications (Trade) Dose Ordered Sig/Mason Route Start Time Stop Time Status Last Admin (D50w (Vial) Inj) 25 ml UNSCH PRN IV PUSH 09/23/16 17:00 (Glucagon Inj) 1 mg UNSCH PRN OTHER 09/23/16 17:00 (Heparin Inj) 5,000 units Q8H SQ 09/23/16 17:00 09/24/16 01:39 (Lipitor) 80 mg HS PO 09/23/16 21:00 09/23/16 22:13 (Coreg) 25 mg DAILY@08 PO 09/24/16 08:00 (Neurontin) 100 mg TID PO 09/23/16 20:00 09/24/16 08:19 (Protonix) 40 mg DAILY@06 PO 09/24/16 06:00 09/24/16 04:59 (Renvela) 800 mg TIDAC PO 09/24/16 08:00 (LaMICtal) 100 mg BID PO 09/23/16 21:00 09/24/16 08:19 (Xanax) 0.25 mg Q8H PO 09/23/16 22:00 09/24/16 04:59 (Norvasc) 10 mg DAILY PO 09/24/16 09:00 (Imdur) 120 mg BID@07,18 PO 09/23/16 18:56 09/23/16 22:12 Diltiazem HCl 180 mg 180 mg DAILY PO 09/24/16 09:00 (NS 1000 ml Inj) 1,000 ml @ 0 mls/hr Q0M PRN IV 09/24/16 08:31 09/24/16 13:09 Heparin Sodium (Porcine) 8000 units 8,000 units UNSCH PRN IVF 09/24/16 08:45 Sodium Chloride 1,000 ml @ 200 mls/hr Q5H PRN IV 09/24/16 08:31 (NS 1000 ml Inj) 1,000 ml @ 0 mls/hr Q0M PRN IV 09/24/16 08:31 (Mannitol Inj) 12.5 gm UNSCH PRN IV 09/24/16 08:45 (Albumin 25% Inj) 25 gm UNSCH PRN IV 09/24/16 08:45 (NS Flush) 5 ml UNSCH PRN IV FLUSH 09/24/16 08:45 (Heparin Inj) UNSCH PRN .XX 09/24/16 08:45 (Gentamicin (Dialysis) Inj) 20 mg UNSCH PRN IV 09/24/16 08:45 (Zofran Inj) 4 mg UNSCH PRN IV 09/24/16 08:45 (Tylenol) 650 mg UNSCH PRN PO 09/24/16 08:45 (Benadryl) 25 mg UNSCH PRN PO 09/24/16 08:45 (Nitrostat Sl) 0.4 mg UNSCH PRN SL 09/24/16 08:45 (Catapres) 0.1 mg UNSCH PRN PO 09/24/16 08:45 (Epogen Inj) 10,000 units UNSCH PRN IV 09/24/16 08:45 09/24/16 13:08 Gelatin 1 foam 1 foam UNSCH PRN TOP 09/24/16 08:45 09/24/16 13:09 Vancomycin HCl 1000 mg/Sodium Chloride 250 ml @ 250 mls/hr Q48H IV 09/26/16 06:00 10/08/16 06:00 (Zosyn 2.25 Gm Premix) 50 ml @ 100 mls/hr Q8H IV 09/24/16 13:00 10/08/16 12:59 Miscellaneous Information ALL NURSING DEPARTME... 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 [employer] FINISH[employer]PER[employer]) Physical Exam Vital Signs Vital Signs Date Time Temp Pulse Resp B/P Pulse Ox O2 Delivery O2 Flow Rate FiO2 09/24/16 12:00 98.5 98 15 125/59 100 Nasal Cannula 2 09/24/16 11:45 100 15 138/70 100 Nasal Cannula 2 09/24/16 11:30 95 21 09/24/16 11:30 109 15 154/84 100 Nasal Cannula 2 09/24/16 11:15 116 15 152/92 100 Nasal Cannula 2 09/24/16 11:07 98.7 132 15 134/96 100 Nasal Cannula 2 09/24/16 08:00 97.4 108 18 97/60 95 09/24/16 04:15 110 09/24/16 04:00 96.8 102 18 137/87 98 09/24/16 00:00 96.8 93 20 132/65 97 09/23/16 22:15 99.2 98 20 152/85 97 09/23/16 16:00 98.1 105 21 136/88 97 Physical Exam Obese Elderly male, lying supine in bed receiving dialysis Eyes open, awake/oriented x 3 CV: S1/S2, irregularly irregular, no murmurs Resp: Clear in all bennett Abd: morbidly obese, round, non tender, normal bowel sounds. Ext: no lower extremity edema; left great toe amputated, dressing in place s/p I &D, some minor bleeding AVF LUE, accessed during HD Laboratory Laboratory Tests Test 09/23/16 17:23 White Blood Count 12.2 Red Blood Count 3.58 Hemoglobin 9.7 Hematocrit 31.2 Mean Corpuscular Volume 87.2 Mean Corpuscular Hemoglobin 27.0 Mean Corpuscular Hemoglobin 31.0 Concent Red Cell Distribution Width 17.1 Platelet Count 264 Mean Platelet Volume 6.7 Neutrophils (%) (Auto) 78.4 Lymphocytes (%) (Auto) 11.5 Monocytes (%) (Auto) 8.3 Eosinophils (%) (Auto) 1.4 Basophils (%) (Auto) 0.4 Neutrophils # (Auto) 9.6 Lymphocytes # (Auto) 1.4 Monocytes # (Auto) 1.0 Eosinophils # (Auto) 0.2 Basophils # (Auto) 0.1 CBC Comment DIFF FINAL Differential Comment Sodium Level 135 Potassium Level 4.0 Chloride Level 97 Carbon Dioxide Level 23.8 Anion Gap 14 Blood Urea Nitrogen 64 Creatinine 7.18 Estimat Glomerular Filtration 8 Rate Random Glucose 97 Calcium Level 9.2 (Skyla Hernandez) Result Diagram: 09/23/16 1723 09/23/16 1723 Imaging Last 72 hours Impressions Foot X-Ray 09/23/16 0000 Signed Impressions: Service Date/Time: Wednesday, September 23, 2016 20:58 - CONCLUSION: Interim great toe amputation since the MRI. Suspected osteomyelitis of the first metatarsal head. Telly Whitley MD (Skyla Hernandez) Assessment and Plan Problem List: (1) ESRD (end stage renal disease) Plan: Seen during dialysis on a 3K, 320 BFR, goal 2L continue HD support TTS no acute renal concerns avoid IVF gadolinium is contraindicated resume high protein diet intermittent renal panel (2) Toe gangrene Plan: s/p I&D, he is on vancomycin and zosyn, follow vancomycin levels carefully vascular is following continue wound care may need rehab placement (3) Hypertension Plan: resume home medications (4) Metabolic bone disease Plan: resume Renvela (5) Anemia of renal disease Plan: epogen with dialysis (Skyla Hernandez) Assessment and Plan patient was seen and examined. Agree with above assessment and plan. Dialysis will be continued TTS. Dr. Sow on the case, surgery is scheduled. (Doni Floyd MD) Skyla Hernandez Sep 24, 2016 15:52 Doni Floyd MD Sep 25, 2016 14:20
[2016-09-24 16:02] LABS: HEMOGLOBIN A1a 1.1 %; HEMOGLOBIN A1b 0.8 %; HEMOGLOBIN Ao 82.4 %; HEMOGLOBIN F 1.8 %; HEMOGLOBIN LA1C 1.6 %; HEMOGLOBIN P3 6.1 %
[2016-09-24] MEDS: PIPERACIL-TAZO 2.25 GM PREMIX 50 ML IV SCH ×2 (16:21→20:35)
[2016-09-24] MEDS: CARVEDILOL 12.5 MG TAB PO SCH (16:23)
[2016-09-24] MEDS: DILTIAZEM-CD 180 MG CAP ER PO SCH (16:23)
[2016-09-24] MEDS: ATORVASTATIN 80 MG TAB PO SCH (20:12)
[2016-09-25] VITALS (8 sets, daily range): BP systolic 120–131; BP diastolic 59–74; PULSE 86–110; RESP 18–20; TEMP 96.1–99; O2SAT 94–97
[2016-09-25] MEDS ORDERED: ACETAMINOPHEN/HYDROcodone 325 MG/5 MG TAB PO PRN (00:30)
[2016-09-25] MEDS: ACETAMINOPHEN/HYDROcodone 325 MG/5 MG TAB PO PRN ×3 (02:40→19:08)
[2016-09-25] MEDS: PIPERACIL-TAZO 2.25 GM PREMIX 50 ML IV SCH ×3 (04:27→21:36)
[2016-09-25] MEDS: LOW DOSE INSULIN NOVOLOG SUPPLEMENTAL SCALE SQ SCH ×4 (04:27→21:39)
[2016-09-25] MEDS: PANTOPRAZOLE SOD 40 MG DELAYED RELEASE TAB PO SCH (04:30)
[2016-09-25] MEDS: ALPRAZolam 0.25 MG TAB PO SCH ×3 (04:30→21:38)
[2016-09-25] MEDS: ISOSORBIDE MONONITRATE 60 MG TAB PO SCH ×2 (04:30→17:35)
--- NOTE | 2016-09-25 07:06 | PD.VS.PN ---
Subjective POD #: 1 Procedure(s): LEFT first metatarsectomy Subjective/Hospital Course c/o pain overnight but didnt' want pain medication had HD yesterday (usu TTS) without problems Objective Vitals/I&O Date Time Temp Pulse Resp B/P Pulse Ox O2 Delivery O2 Flow Rate FiO2 09/25/16 04:00 98.5 98 18 120/67 95 09/25/16 03:57 16 09/25/16 00:00 97.5 110 20 123/73 95 09/25/16 00:00 92 09/24/16 22:17 16 09/24/16 20:00 98.3 102 20 120/59 93 09/24/16 16:00 99.8 104 18 119/70 93 09/24/16 12:00 98.5 98 15 125/59 100 Nasal Cannula 2 09/24/16 11:45 100 15 138/70 100 Nasal Cannula 2 09/24/16 11:30 95 21 09/24/16 11:30 109 15 154/84 100 Nasal Cannula 2 09/24/16 11:15 116 15 152/92 100 Nasal Cannula 2 09/24/16 11:07 98.7 132 15 134/96 100 Nasal Cannula 2 09/24/16 08:00 97.4 108 18 97/60 95 09/25/16 09/25/16 09/25/16 07:00 15:00 23:00 Intake Total 120 ml Balance 120 ml Exam: L great toe amputation site looks ok - perfused and no necrotic tissue; questionable involvement of 2nd metatarsal Assessment and Plan Plan 1. wound care: BID dressing changes and wound consult ordered 2. Continue antibiotics 3. aggressive blood glucose control - A1c >7 4. HD per nephrology 5. PT/OOB/ambulate Discharge Planning likely early to mid next week to rehab Marco Sow MD Sep 25, 2016 07:06
[2016-09-25] MEDS ORDERED: GLUCAGON 1 MG/ML VIAL OTHER PRN (07:15)
[2016-09-25] MEDS ORDERED: DEXTROSE 50% IN WATER 50 ML VIAL(D50) IV PRN (07:15)
[2016-09-25] MEDS: lamoTRIgine 100 MG TAB PO SCH ×2 (08:09→21:38)
[2016-09-25] MEDS: DILTIAZEM-CD 180 MG CAP ER PO SCH (08:09)
[2016-09-25] MEDS: CARVEDILOL 12.5 MG TAB PO SCH (08:09)
[2016-09-25] MEDS: SEVELAMER CARBONATE 800 MG TAB PO SCH ×3 (08:09→15:19)
[2016-09-25] MEDS: HEPARIN SODIUM - SQ 10,000 UNITS/ML VIAL SQ SCH ×2 (08:10→17:31)
[2016-09-25] MEDS: GABAPENTIN 100 MG CAP PO SCH ×3 (08:12→17:31)
[2016-09-25] MEDS: SODIUM CHLORIDE 0.9% FLUSH 10 ML FLUSH IV FLUSH PRN (08:15)
--- NOTE | 2016-09-25 11:41 | HHI.PR ---
Subjective Remarks in no acute distress. has some pain to the left foot. accu-check this morning ; 90. Objective Vitals Vital Signs Date Time Temp Pulse Resp B/P Pulse Ox O2 Delivery O2 Flow Rate FiO2 09/25/16 08:25 95 09/25/16 08:00 99.0 96 20 130/74 95 09/25/16 04:00 98.5 98 18 120/67 95 09/25/16 03:57 16 09/25/16 00:00 97.5 110 20 123/73 95 09/25/16 00:00 92 09/24/16 22:17 16 09/24/16 20:00 98.3 102 20 120/59 93 09/24/16 16:00 99.8 104 18 119/70 93 09/24/16 12:00 98.5 98 15 125/59 100 Nasal Cannula 2 09/24/16 11:45 100 15 138/70 100 Nasal Cannula 2 I/O 09/24/16 09/24/16 09/24/16 09/25/16 09/25/16 09/25/16 07:00 15:00 23:00 07:00 15:00 23:00 Intake Total 250 ml 120 ml Output Total 80 ml 2000 ml Balance 170 ml -2000 ml 120 ml Intake Oral 0 ml 120 ml IV Total 0 ml Other 250 ml Output Urine Total 50 ml Hemodialysis 2000 ml Estimated Blood Loss 30 ml Result Diagram: 09/23/16 1723 09/23/16 1723 Imaging Last Impressions Foot X-Ray 09/23/16 0000 Signed Impressions: Service Date/Time: Friday, September 23, 2016 20:58 - CONCLUSION: Interim great toe amputation since the MRI. Suspected osteomyelitis of the first metatarsal head. Telly Whitley MD Objective Remarks GENERAL: This is a well-nourished, well-developed patient, in no apparent distress. CARDIOVASCULAR: Regular rate and regular rhythm without murmurs, gallops, or rubs. RESPIRATORY: Clear to auscultation. Breath sounds equal bilaterally. No wheezes , rales, or rhonchi. GASTROINTESTINAL: Abdomen soft, non-tender, nondistended. Normal, active bowel sounds MUSCULOSKELETAL: left foot covered with clean dressing. NEURO: Alert & Oriented x4 to person, place, time, situation. Moves all ext x4 Medications and IVs Current Medications Dextrose (D50w (Vial) Inj) 25 ml UNSCH PRN IV PUSH HYPOGLYCEMIA - SEE COMMENTS ; Start 09/23/16 at 17:00; Stop 09/25/16 at 07:08; Status DC Glucagon 1 mg 1 mg UNSCH PRN OTHER HYPOGLYCEMIA-SEE COMMENTS; Start 09/23/16 at 17:00; Stop 09/25/16 at 07:08; Status DC Vancomycin HCl 1000 mg/Sodium Chloride 250 ml @ 250 mls/hr Q12H IV Last administered on 09/24/16 06:38; Start 09/23/16 at 18:00; Stop 09/24/16 at 10:07 ; Status DC Piperacillin Sod/ Tazobactam Sod (Zosyn 3.375 Gm Premix) 50 ml @ 100 mls/hr Q6H IV Last administered on 09/24/16 05:04; Start 09/23/16 at 17:00; Stop at 10:08; Status DC Heparin Sodium (Porcine) (Heparin Inj) 5,000 units Q8H SQ Last administered on 09/25/16 08:10; Start 09/23/16 at 17:00 Insulin Aspart 1 1 ACHS SLIDING SCALE SQ Last administered on 09/24/16 20:25 ; Start 09/23/16 at 21:00 Sodium Chloride (NS 1000 ml Inj) 1,000 ml @ 90 mls/hr Q11H7M IV Last administered on 09/23/16 22:21; Start 09/23/16 at 20:00; Stop 09/24/16 at 08:41 ; Status DC Atorvastatin Calcium (Lipitor) 80 mg HS PO Last administered on 09/24/16 20:12 ; Start 09/23/16 at 21:00 Carvedilol (Coreg) 25 mg DAILY@08 PO Last administered on 09/25/16 08:09; Start 09/24/16 at 08:00 Gabapentin (Neurontin) 100 mg TID PO Last administered on 09/25/16 08:12; Start 09/23/16 at 20:00 Pantoprazole Sodium (Protonix) 40 mg DAILY@06 PO Last administered on 04:30; Start 09/24/16 at 06:00 Sevelamer Carbonate (Renvela) 800 mg TIDAC PO Last administered on 09/25/16 08 :09; Start 09/24/16 at 08:00 Lamotrigine (LaMICtal) 100 mg BID PO Last administered on 09/25/16 08:09; Start 09/23/16 at 21:00 Alprazolam (Xanax) 0.25 mg Q8H PO Last administered on 09/25/16 04:30; Start 09/23/16 at 22:00 Amlodipine Besylate (Norvasc) 10 mg DAILY PO Last administered on 09/25/16 08: 08; Start 09/24/16 at 09:00 Isosorbide Mononitrate (Imdur) 120 mg BID@07,18 PO Last administered on 04:30; Start 09/23/16 at 18:56 Diltiazem HCl 180 mg 180 mg DAILY PO Last administered on 09/25/16 08:09; Start 09/24/16 at 09:00 Sodium Chloride (NS 1000 ml Inj) 1,000 ml @ 0 mls/hr Q0M PRN IV For Prime & Rinse Back Last administered on 09/24/16 13:09; Start 09/24/16 at 08:31 Heparin Sodium (Porcine) 8000 units 8,000 units UNSCH PRN IVF WITH DIALYSIS; Start 09/24/16 at 08:45 Sodium Chloride 1,000 ml @ 200 mls/hr Q5H PRN IV WITH DIALYSIS; Start 09/24/16 at 08:31 Sodium Chloride (NS 1000 ml Inj) 1,000 ml @ 0 mls/hr Q0M PRN IV WITH DIALYSIS; Start 09/24/16 at 08:31 Mannitol (Mannitol Inj) 12.5 gm UNSCH PRN IV WITH DIALYSIS; Start 09/24/16 at 08:45 Albumin Human (Albumin 25% Inj) 25 gm UNSCH PRN IV WITH DIALYSIS; Start at 08:45 Sodium Chloride (NS Flush) 5 ml UNSCH PRN IV FLUSH WITH DIALYSIS Last administered on 09/25/16 08:15; Start 09/24/16 at 08:45 Heparin Sodium (Porcine) (Heparin Inj) UNSCH PRN .XX WITH DIALYSIS; Start at 08:45 Gentamicin Sulfate (Gentamicin (Dialysis) Inj) 20 mg UNSCH PRN IV WITH DIALYSIS ; Start 09/24/16 at 08:45 Ondansetron HCl (Zofran Inj) 4 mg UNSCH PRN IV WITH DIALYSIS; Start 09/24/16 at 08:45 Acetaminophen (Tylenol) 650 mg UNSCH PRN PO TEMP > 101F Last administered on 16:28; Start 09/24/16 at 08:45 Diphenhydramine HCl (Benadryl) 25 mg UNSCH PRN PO for hives/itching/anaphylaxis ; Start 09/24/16 at 08:45 Nitroglycerin (Nitrostat Sl) 0.4 mg UNSCH PRN SL CHEST PAIN; Start 09/24/16 at 08:45 Clonidine (Catapres) 0.1 mg UNSCH PRN PO for BP > 180/100 X 2 readings; Start 09/24/16 at 08:45 Epoetin [place] (Epogen Inj) 10,000 units UNSCH PRN IV WITH DIALYSIS Last administered on 09/24/16 13:08; Start 09/24/16 at 08:45 Gelatin 1 foam 1 foam UNSCH PRN TOP SEE LABEL COMMENTS Last administered on 13:09; Start 09/24/16 at 08:45 Vancomycin HCl 1000 mg/Sodium Chloride 250 ml @ 250 mls/hr Q48H IV ; Start at 06:00; Stop 10/08/16 at 06:00 Piperacillin Sod/ Tazobactam Sod (Zosyn 2.25 Gm Premix) 50 ml @ 100 mls/hr Q8H IV Last administered on 09/25/16 04:27; Start 09/24/16 at 13:00; Stop at 12:59 Metoprolol Tartrate (Lopressor Inj) 5 mg STK-MED ONCE .ROUTE Last administered on 09/24/16 11:11; Start 09/24/16 at 11:11; Stop 09/24/16 at 11:12; Status DC Fentanyl Citrate (fentaNYL INJ) 100 mcg STK-MED ONCE .ROUTE ; Start 09/24/16 at 11:16; Stop 09/24/16 at 11:17; Status DC Hydromorphone HCl (*DILAUDID PF INJ PERIprocedural ONLY) 1 mg STK-MED ONCE .ROUTE Last administered on 09/24/16 11:29; Start 09/24/16 at 11:29; Stop at 11:30; Status DC Miscellaneous Information ALL NURSING DEPARTME... UNSCH PRN .XX SEE LABEL COMMENTS; Start 09/24/16 at 11:00; Stop 09/25/16 at 10:59 Metoprolol Tartrate (Lopressor Inj) 1 mg Q10M IV PUSH Last administered on 09/24 11:50; Start 09/24/16 at 11:12; Stop 09/24/16 at 15:18; Status DC Hydromorphone HCl (Dilaudid Pf Inj) 0.5 mg NOW ONCE IV Last administered on 20:13; Start 09/24/16 at 12:00; Stop 09/24/16 at 19:20; Status DC Acetaminophen/ Hydrocodone Bitart ([place] 5-325 Mg) 1 tab Q4H PRN PO PAIN < 5 Last administered on 09/25/16 08:10; Start 09/25/16 at 00:30 Acetaminophen/ Hydrocodone Bitart ([place] 5-325 Mg) 2 tab Q4H PRN PO PAIN > 5; Start 09/25/16 at 00:30 Dextrose (D50w (Vial) Inj) 50 ml UNSCH PRN IV HYPOGLYCEMIA-SEE COMMENTS; Start 09/25/16 at 07:15 Glucagon (Glucagon Inj) 1 mg UNSCH PRN OTHER HYPOGLYCEMIA-SEE COMMENTS; Start 09/25/16 at 07:15 A/P Assessment and Plan A/P - left great toe osteomyelitis- s/p left metatarsal resection continue with IV antibiotics and pain control- management per vascular surgery -diabetes mellitus; accu-check with SSI- A1c 7.5. accu-check this mornin. will consider addling long-acting insulin - pending the blood sugar trend. -hypertension; resumed coreg, cardizem and imdur- will continue to monitor and adjust the regimen as needed -ESRD-on HD; HD per nephrology. -anemia of chronic disease; epogen with HD- will monitor. -dyslipidemia; resumed statin -colon cancer- f/u as outpatient -DVT prophylaxis; subq heparin . Teodoro Dangelo MD Sep 25, 2016 11:41
--- NOTE | 2016-09-25 11:49 | PD.WCN.NOT ---
Wound Consult Description: Patient seen on for evaluation of wound management for surgical wound to L foot. Patient is s/p L 1st metatarsectomy. Removed gauze and and Hira dressing in place to reveal open surgical wound to L medial foot. Cleansed wound with normal saline. Wound noted with moderate dark sanguinous drainage without odor. Wound bed presents with ~60% red non granulation tissue, and 40% exposed muscle, bone, facia and adipose tissue.Wound measures 7.5 x 5.3 x 2.5 Periwound is unremarkable. Applied 4x4 gauze dressing to wound bed and covered with Optifoam dressing. Secured dressings with rolled gauze and tape. Communicated with: EFRAIN Wolfe Vascular surgery, test lead, deli department manager Kiran and Rae RN Recommendation: Recommend to apply Veraflow Vac dressing and change Wednesday and with first application today. Clarisa Garcia [facility] Sep 25, 2016 11:49
--- NOTE | 2016-09-25 13:11 | HHI.NPPN ---
Subjective Complaints: Obesity General Problems: Hypertension Renal Failure: End Stage Renal Disease Interval History Dialysis went well yesterday. No acute concerns. (Skyla Hernandez) Review of Systems Musculoskeletal MS: Pain/Stiffness MS Remarks foot post operatively (Skyla Hernandez) Objective Data Data 09/24/16 09/25/16 18:59 06:59 Intake Total 250 ml 120 ml Output Total 2080 ml Balance -1830 ml 120 ml Intake Oral 0 ml 120 ml IV Total 0 ml Other 250 ml Output Urine Total 50 ml Hemodialysis 2000 ml Estimated Blood Loss 30 ml Vital Signs Date Time Temp Pulse Resp B/P Pulse Ox O2 Delivery O2 Flow Rate FiO2 09/25/16 08:25 95 09/25/16 08:00 99.0 96 20 130/74 95 09/25/16 04:00 98.5 98 18 120/67 95 09/25/16 03:57 16 09/25/16 00:00 97.5 110 20 123/73 95 09/25/16 00:00 92 09/24/16 22:17 16 09/24/16 20:00 98.3 102 20 120/59 93 09/24/16 16:00 99.8 104 18 119/70 93 (Skyla Hernandez) -: 09/23/16 1723 09/23/16 1723 Imaging Last 72 hours Impressions Foot X-Ray 09/23/16 0000 Signed Impressions: Service Date/Time: Friday, September 23, 2016 20:58 - CONCLUSION: Interim great toe amputation since the MRI. Suspected osteomyelitis of the first metatarsal head. Telly Whitley MD (Skyla Hernandez) Physical Exam General Appearance: Well Developed, Well Nourished, No Acute Distress, Comfortable, Obese (Skyla Hernandez) Throat Throat Exam: Oral Mucosa [place] & Moist (Skyla Hernandez) Pulmonary Resp Exam: Clear Bilaterally, Breath Sounds Equal (Skyla Hernandez) Cardiology CV Exam: Good Perfusion, Irregular (Skyla Hernandez) Gastrointestinal/Abdomen GI Exam: Soft, Non-Tender, Bowel Sounds Present, Positive Bowel Movement GI Remarks morbidly obese (Skyla Hernandez) Musculoskeletal MS Exam: Normal Tone, Good Strength MS Remarks s/p left great toe amputation, dressing in place (Skyla Hernandez) Integumentary Skin Exam: Warm, Dry (Skyla Hernandez) Extremeties Extremities Exam: No Edema, Pedal Pulses Palpable (Skyla Hernandez) Neurologic Neuro Exam: Alert, Awake, Oriented, Speech Clear, Moving All Extremities ( Skyla Hernandez) Assessment/Plan Discussed Condition With: Patient Assessment Summary: Anemia of CKD, [place] Hyperparathyroid, Hypertension, End Stage Renal Disease Problem List: (1) ESRD (end stage renal disease) Plan: 2L UF yesterday, continue HD support TTS no acute renal concerns avoid IVF gadolinium is contraindicated resume high protein diet intermittent renal panel (2) Toe gangrene Plan: s/p I&D, he is on vancomycin and Zosyn, follow vancomycin levels carefully vascular is following continue wound care plan for rehab transfer next week (3) Hypertension Plan: resume home medications (4) Metabolic bone disease Plan: continue Renvela (5) Anemia of renal disease Plan: epogen with dialysis (Skyla Hernandez) Plan patient was seen and examined. Agree with above assessment and plan. Dialysis tomorrow. (Doni Floyd MD) Skyla Hernandez Sep 25, 2016 13:11 Doni Floyd MD Sep 25, 2016 14:47
--- NOTE | 2016-09-25 14:06 | PD.WCN.NOT ---
Wound Consult Description: Patient seen on for evaluation of wound management for surgical wound to L foot. Patient is s/p L 1st metatarsectomy. Removed gauze and and Hira dressing in place to reveal open surgical wound to L medial foot. Cleansed wound with normal saline. Wound noted with moderate dark sanguinous drainage without odor. Wound bed presents with ~60% red non granulation tissue, and 40% exposed muscle, bone, facia and adipose tissue.Wound measures 7.5 x 5.3 x 2.5 Periwound is unremarkable. Applied 4x4 gauze dressing to wound bed and covered with Optifoam dressing. Secured dressings with rolled gauze and tape. Recommendation: Recommend to apply Veraflow Vac dressing and change Wednesday and with first application today. Neg Pressure Wound Therapy Wound Location Wound Location: L foot Wound Description Length: 7.5 Width: 5.3 Depth: 2.5 Wound bed appearance: Wound noted with moderate dark sanguinous drainage without odor. Wound bed presents with ~60% red non granulation tissue, and 40% exposed muscle, bone, facia and adipose tissue Periwound appearance: Unremarkable Settings Suction: 125 mmHg, Intermittent (Suction on wound VAC is intermittent due to instillation of normal saline) Intensity: Low Other Information: Bridged, Windowpaned Foam type: Black Number of pieces: 1 Additonal Information Patient seen on for wound VAC Veraflow dressing placement to surgical wound to L foot. Patient is s/p L 1st metatarsectomy.Wound VAC dressing change was done with assist of Alaina SCHMITZ.Removed Optifoam basic, 4x4 gauze, and and Hira dressing in place to reveal open surgical wound to L medial foot. Cleansed wound with normal saline. Skin prep applied to periwound before window paning wound with VAC drape.Applied oil emulsion gauze over exposed tendon, muscle and bone. Applied one strip of VAC granufoam to wound bed covering with addition VAC drape. Stoma paste applied to wound margins from 11 to 1 o'clock to seal VAC dressing. Bridged black granufoam dressing to dorsal aspect of L foot over VAC drape. Covered all exposed VAC granufoam with VAC drape. Applied Sensi Trac pad over bridged granufoam on dorsal aspect of L foot. Attached trac pad to VAC machine. Machine started with seal check for 2 minutes and 30 seconds. Then instilled 18 ml of normal saline in to wound bed using fill assist. Wound is soaking for 20 minutes and then will suction at 125 mm/hg low suction for 2 hours before repeating another soak cycle. Wound Vac is functioning properly without leaks upon leaving patient's room. Clarisa [facility] Sep [facility], 2016 14[facility]06
--- NOTE | 2016-09-25 14:49 | MP ---
cc: NICK SOW MD DATE OF SURGERY: 09/24/2016 PREOPERATIVE DIAGNOSIS Left foot metatarsal osteomyelitis, diabetes. POSTOPERATIVE DIAGNOSIS Left foot metatarsal osteomyelitis, diabetes. PROCEDURE Left foot first metatarsectomy and debridement of skin and subcutaneous tissue for diabetic foot infection. ATTENDING SURGEON Nick Sow ANESTHESIA General. INDICATION Mr. Adams is a 66-year-old gentleman who had previous left foot infection. He had adequate blood supply. He presented to my clinic yesterday with worsening of his foot infection. He is taken to the operating room for operative debridement to include metatarsectomy. Intraoperatively it was found he had necrotic muscle and clear osteomyelitis of his left first metatarsal. This was debridement without difficulty. DESCRIPTION OF PROCEDURE Informed consent was obtained from the patient. He was taken to the operating room and placed supine on the operating table. An appropriate timeout was taken to ensure the patient's identity, operative site and planned procedure. The administration of antibiotics was completed. He was on Zosyn and vancomycin with therapeutic levels and these will be continued postoperatively for ongoing therapy of a polymicrobial diabetic foot infection. Everyone in the room agreed with the timeout and we proceeded. The left foot was prepped and draped. An incision was made at the base of his previous incision and carried down to subcutaneous tissue with electrocautery. Necrosis was encountered and the entire necrotic muscle was debrided. The metatarsal was resected with an oscillating saw and the distal metatarsal was completely resected and amputated. The wound was then irrigated, made hemostatic, scrubbed vigorously with a surgical scrub brush and dressed in Kerlix and Aurelio bandage. There were no complications. I was present and scrubbed for the entire procedure. Nick Sow MD RJAndrew/ELKIN /11:03 AM /2:44 PM
[2016-09-25] MEDS: ATORVASTATIN 80 MG TAB PO SCH (21:36)
[2016-09-26] VITALS (10 sets, daily range): BP systolic 116–147; BP diastolic 60–74; PULSE 81–108; RESP 18–19; TEMP 96.9–99.2; O2SAT 93–99
[2016-09-26] MEDS: HEPARIN SODIUM - SQ 10,000 UNITS/ML VIAL SQ SCH ×3 (01:00→17:58)
[2016-09-26] MEDS: PIPERACIL-TAZO 2.25 GM PREMIX 50 ML IV SCH ×3 (05:51→20:42)
[2016-09-26] MEDS: ALPRAZolam 0.25 MG TAB PO SCH ×3 (05:52→20:41)
[2016-09-26] MEDS: PANTOPRAZOLE SOD 40 MG DELAYED RELEASE TAB PO SCH (05:52)
[2016-09-26] MEDS: ISOSORBIDE MONONITRATE 60 MG TAB PO SCH ×2 (05:55→18:00)
[2016-09-26] MEDS: ACETAMINOPHEN/HYDROcodone 325 MG/5 MG TAB PO PRN (05:59)
[2016-09-26] MEDS ORDERED: VANCOMYCIN INJ 1,000 MG in SODIUM CHLOR 0.9% 250 ML INJ 250 ML IV SCH (06:00)
[2016-09-26] MEDS: LOW DOSE INSULIN NOVOLOG SUPPLEMENTAL SCALE SQ SCH ×4 (06:09→20:54)
[2016-09-26] MEDS: SEVELAMER CARBONATE 800 MG TAB PO SCH ×3 (08:00→17:58)
[2016-09-26] MEDS: GABAPENTIN 100 MG CAP PO SCH ×3 (09:00→17:58)
--- NOTE | 2016-09-26 09:05 | PD.VS.PN ---
Subjective Procedure(s): LEFT first metatarsectomy Subjective/Hospital Course patient without complaints. Objective Vitals/I&O Date Time Temp Pulse Resp B/P Pulse Ox O2 Delivery O2 Flow Rate FiO2 09/26/16 07:23 16 09/26/16 04:00 97.6 84 18 141/68 94 09/26/16 00:00 96.9 81 18 137/64 95 09/25/16 22:21 102 09/25/16 21:14 96 09/25/16 20:00 96.1 89 18 127/69 94 09/25/16 13:45 98.5 86 18 131/59 97 09/26/16 09/26/16 09/26/16 07:00 15:00 23:00 Intake Total 60 ml Output Total 50 ml Balance 10 ml Exam: left foot wrapped with ann bandage. Wound vac in place over surgical site. Assessment and Plan Plan 1. wound care: wound vac in place. Changed early next week. 2. continue IV abx. 3. BS control.. Rehab next week (early/mid week). Discharge Planning likely early to mid next week to rehab Angel Hidalgo DO Sep 26, 2016 09:05
--- NOTE | 2016-09-26 09:33 | HHI.NPPN ---
Subjective Complaints: Obesity General Problems: Hypertension Renal Failure: End Stage Renal Disease Interval History patient was seen during dialysis. On 2K, BFR is 350 ml/min. UF goal is 3 liters. He is tolerating well. Has no specific complaints. Pain is under control. Review of Systems Musculoskeletal MS: Pain/Stiffness MS Remarks foot post operatively Objective Data Data 09/25/16 09/26/16 19:00 07:00 Intake Total 300 ml 120 ml Output Total 50 ml 50 ml Balance 250 ml 70 ml Intake Oral 300 ml 120 ml Output Urine Total 50 ml 50 ml # Bowel Movements 1 Vital Signs Date Time Temp Pulse Resp B/P Pulse Ox O2 Delivery O2 Flow Rate FiO2 09/26/16 08:00 97.8 91 19 147/60 93 09/26/16 07:23 16 09/26/16 04:00 97.6 84 18 141/68 94 09/26/16 00:00 96.9 81 18 137/64 95 09/25/16 22:21 102 09/25/16 21:14 96 09/25/16 20:00 96.1 89 18 127/69 94 09/25/16 13:45 98.5 86 18 131/59 97 -: 09/23/16 1723 09/23/16 1723 Physical Exam General Appearance: Well Developed, Well Nourished, No Acute Distress, Comfortable, Obese Throat Throat Exam: Oral Mucosa [place] & Moist Pulmonary Resp Exam: Clear Bilaterally, Breath Sounds Equal Cardiology CV Exam: Good Perfusion, Irregular Gastrointestinal/Abdomen GI Exam: Soft, Non-Tender, Bowel Sounds Present, Positive Bowel Movement Musculoskeletal MS Exam: Normal Tone, Good Strength Integumentary Skin Exam: Warm, Dry Extremeties Extremities Exam: No Edema, Pedal Pulses Palpable Neurologic Neuro Exam: Alert, Awake, Oriented, Speech Clear, Moving All Extremities Assessment/Plan Discussed Condition With: Patient Assessment Summary: Anemia of CKD, [place] Hyperparathyroid, Hypertension, End Stage Renal Disease Problem List: (1) ESRD (end stage renal disease) Plan: Dialysis today. avoid IVF gadolinium is contraindicated resume high protein diet intermittent renal panel (2) Toe gangrene Plan: s/p I&D, he is on vancomycin and Zosyn, follow vancomycin levels carefully. I have changed Vancomycin to be given with dialysis. vascular is following continue wound care He may not need any antibiotics. (3) Hypertension Plan: resume home medications (4) Metabolic bone disease Plan: continue Renvela (5) Anemia of renal disease Plan: epogen with dialysis Doni Floyd MD Sep 26, 2016 09:33
[2016-09-26] MEDS: EPOETIN ALFA 10,000 UNITS/ML VIAL IV PRN (09:47)
--- NOTE | 2016-09-26 10:08 | HHI.PR ---
Subjective Remarks being seen in HD. resting comfortably with no new complaints. pain is controlled. Objective Vitals Vital Signs Date Time Temp Pulse Resp B/P Pulse Ox O2 Delivery O2 Flow Rate FiO2 09/26/16 09:47 99 09/26/16 08:00 97.8 91 19 147/60 93 09/26/16 07:23 16 09/26/16 04:00 97.6 84 18 141/68 94 09/26/16 00:00 96.9 81 18 137/64 95 09/25/16 22:21 102 09/25/16 21:14 96 09/25/16 20:00 96.1 89 18 127/69 94 09/25/16 13:45 98.5 86 18 131/59 97 I/O 09/25/16 09/25/16 09/25/16 09/26/16 09/26/16 09/26/16 07:00 15:00 23:00 07:00 15:00 23:00 Intake Total 120 ml 300 ml 60 ml 60 ml Output Total 50 ml 50 ml Balance 120 ml 250 ml 60 ml 10 ml Intake Oral 120 ml 300 ml 60 ml 60 ml Output Urine Total 50 ml 50 ml # Bowel Movements 1 Result Diagram: 09/23/16 1723 09/23/16 1723 Imaging Last Impressions Foot X-Ray 09/23/16 0000 Signed Impressions: Service Date/Time: Friday, September 23, 2016 20:58 - CONCLUSION: Interim great toe amputation since the MRI. Suspected osteomyelitis of the first metatarsal head. Telly Whitley MD Objective Remarks GENERAL: This is a well-nourished, well-developed patient, in no apparent distress. CARDIOVASCULAR: Regular rate and regular rhythm without murmurs, gallops, or rubs. RESPIRATORY: Clear to auscultation. Breath sounds equal bilaterally. No wheezes , rales, or rhonchi. GASTROINTESTINAL: Abdomen soft, non-tender, nondistended. Normal, active bowel sounds MUSCULOSKELETAL: left foot covered with clean dressing. NEURO: Alert & Oriented x4 to person, place, time, situation. Moves all ext x4 Medications and IVs Current Medications Dextrose (D50w (Vial) Inj) 25 ml UNSCH PRN IV PUSH HYPOGLYCEMIA - SEE COMMENTS ; Start 09/23/16 at 17:00; Stop 09/25/16 at 07:08; Status DC Glucagon 1 mg 1 mg UNSCH PRN OTHER HYPOGLYCEMIA-SEE COMMENTS; Start 09/23/16 at 17:00; Stop 09/25/16 at 07:08; Status DC Vancomycin HCl 1000 mg/Sodium Chloride 250 ml @ 250 mls/hr Q12H IV Last administered on 09/24/16 06:38; Start 09/23/16 at 18:00; Stop 09/24/16 at 10:07 ; Status DC Piperacillin Sod/ Tazobactam Sod (Zosyn 3.375 Gm Premix) 50 ml @ 100 mls/hr Q6H IV Last administered on 09/24/16 05:04; Start 09/23/16 at 17:00; Stop at 10:08; Status DC Heparin Sodium (Porcine) (Heparin Inj) 5,000 units Q8H SQ Last administered on 09/25/16 17:31; Start 09/23/16 at 17:00 Insulin Aspart 1 1 ACHS SLIDING SCALE SQ Last administered on 09/26/16 06:09 ; Start 09/23/16 at 21:00 Sodium Chloride (NS 1000 ml Inj) 1,000 ml @ 90 mls/hr Q11H7M IV Last administered on 09/23/16 22:21; Start 09/23/16 at 20:00; Stop 09/24/16 at 08:41 ; Status DC Atorvastatin Calcium (Lipitor) 80 mg HS PO Last administered on 09/25/16 21:36 ; Start 09/23/16 at 21:00 Carvedilol (Coreg) 25 mg DAILY@08 PO Last administered on 09/25/16 08:09; Start 09/24/16 at 08:00 Gabapentin (Neurontin) 100 mg TID PO Last administered on 09/25/16 17:31; Start 09/23/16 at 20:00 Pantoprazole Sodium (Protonix) 40 mg DAILY@06 PO Last administered on 05:52; Start 09/24/16 at 06:00 Sevelamer Carbonate (Renvela) 800 mg TIDAC PO Last administered on 09/25/16 15 :19; Start 09/24/16 at 08:00 Lamotrigine (LaMICtal) 100 mg BID PO Last administered on 09/25/16 21:38; Start 09/23/16 at 21:00 Alprazolam (Xanax) 0.25 mg Q8H PO Last administered on 09/26/16 05:52; Start 09/23/16 at 22:00 Amlodipine Besylate (Norvasc) 10 mg DAILY PO Last administered on 09/25/16 08: 08; Start 09/24/16 at 09:00 Isosorbide Mononitrate (Imdur) 120 mg BID@07,18 PO Last administered on 05:55; Start 09/23/16 at 18:56 Diltiazem HCl 180 mg 180 mg DAILY PO Last administered on 09/25/16 08:09; Start 09/24/16 at 09:00 Sodium Chloride (NS 1000 ml Inj) 1,000 ml @ 0 mls/hr Q0M PRN IV For Prime & Rinse Back Last administered on 09/24/16 13:09; Start 09/24/16 at 08:31 Heparin Sodium (Porcine) 8000 units 8,000 units UNSCH PRN IVF WITH DIALYSIS Last administered on 09/26/16 09:00; Start 09/24/16 at 08:45 Sodium Chloride 1,000 ml @ 200 mls/hr Q5H PRN IV WITH DIALYSIS; Start 09/24/16 at 08:31 Sodium Chloride (NS 1000 ml Inj) 1,000 ml @ 0 mls/hr Q0M PRN IV WITH DIALYSIS; Start 09/24/16 at 08:31 Mannitol (Mannitol Inj) 12.5 gm UNSCH PRN IV WITH DIALYSIS; Start 09/24/16 at 08:45 Albumin Human (Albumin 25% Inj) 25 gm UNSCH PRN IV WITH DIALYSIS; Start at 08:45 Sodium Chloride (NS Flush) 5 ml UNSCH PRN IV FLUSH WITH DIALYSIS Last administered on 09/25/16 08:15; Start 09/24/16 at 08:45 Heparin Sodium (Porcine) (Heparin Inj) UNSCH PRN .XX WITH DIALYSIS; Start at 08:45 Gentamicin Sulfate (Gentamicin (Dialysis) Inj) 20 mg UNSCH PRN IV WITH DIALYSIS ; Start 09/24/16 at 08:45 Ondansetron HCl (Zofran Inj) 4 mg UNSCH PRN IV WITH DIALYSIS; Start 09/24/16 at 08:45 Acetaminophen (Tylenol) 650 mg UNSCH PRN PO TEMP > 101F Last administered on 16:28; Start 09/24/16 at 08:45 Diphenhydramine HCl (Benadryl) 25 mg UNSCH PRN PO for hives/itching/anaphylaxis ; Start 09/24/16 at 08:45 Nitroglycerin (Nitrostat Sl) 0.4 mg UNSCH PRN SL CHEST PAIN; Start 09/24/16 at 08:45 Clonidine (Catapres) 0.1 mg UNSCH PRN PO for BP > 180/100 X 2 readings; Start 09/24/16 at 08:45 Epoetin Puneet (Epogen Inj) 10,000 units UNSCH PRN IV WITH DIALYSIS Last administered on 09/26/16 09:47; Start 09/24/16 at 08:45 Gelatin 1 foam 1 foam UNSCH PRN TOP SEE LABEL COMMENTS Last administered on 13:09; Start 09/24/16 at 08:45 Vancomycin HCl 1000 mg/Sodium Chloride 250 ml @ 250 mls/hr Q48H IV Last administered on 09/26/16 05:53; Start 09/26/16 at 06:00; Stop 09/26/16 at 09:32 ; Status DC Piperacillin Sod/ Tazobactam Sod (Zosyn 2.25 Gm Premix) 50 ml @ 100 mls/hr Q8H IV Last administered on 09/26/16 05:51; Start 09/24/16 at 13:00; Stop at 12:59 Metoprolol Tartrate (Lopressor Inj) 5 mg STK-MED ONCE .ROUTE Last administered on 09/24/16 11:11; Start 09/24/16 at 11:11; Stop 09/24/16 at 11:12; Status DC Fentanyl Citrate (fentaNYL INJ) 100 mcg STK-MED ONCE .ROUTE ; Start 09/24/16 at 11:16; Stop 09/24/16 at 11:17; Status DC Hydromorphone HCl (*DILAUDID PF INJ PERIprocedural ONLY) 1 mg STK-MED ONCE .ROUTE Last administered on 09/24/16 11:29; Start 09/24/16 at 11:29; Stop at 11:30; Status DC Miscellaneous Information ALL NURSING DEPARTME... UNSCH PRN .XX SEE LABEL COMMENTS; Start 09/24/16 at 11:00; Stop 09/25/16 at 13:45; Status DC Metoprolol Tartrate (Lopressor Inj) 1 mg Q10M IV PUSH Last administered on 09/24 11:50; Start 09/24/16 at 11:12; Stop 09/24/16 at 15:18; Status DC Hydromorphone HCl (Dilaudid Pf Inj) 0.5 mg NOW ONCE IV Last administered on 20:13; Start 09/24/16 at 12:00; Stop 09/24/16 at 19:20; Status DC Acetaminophen/ Hydrocodone Bitart ([place] 5-325 Mg) 1 tab Q4H PRN PO PAIN < 5 Last administered on 09/26/16 05:59; Start 09/25/16 at 00:30 Acetaminophen/ Hydrocodone Bitart ([place] 5-325 Mg) 2 tab Q4H PRN PO PAIN > 5; Start 09/25/16 at 00:30 Dextrose (D50w (Vial) Inj) 50 ml UNSCH PRN IV HYPOGLYCEMIA-SEE COMMENTS; Start 09/25/16 at 07:15 Glucagon 1 mg 1 mg UNSCH PRN OTHER HYPOGLYCEMIA-SEE COMMENTS; Start 09/25/16 at 07:15 Vancomycin HCl/ Sodium Chloride (Vancomycin Inj/ NS 250 ml Inj) 250 ml @ 250 mls/hr WITH DIALYSIS IV ; Start 09/26/16 at 09:45; Status UNV A/P Assessment and Plan A/P - left great toe osteomyelitis- s/p left metatarsal resection continue with IV antibiotics and pain control- management per vascular surgery -diabetes mellitus; accu-check with SSI- A1c 7.5. will add low-dose levemir and continue with SSI. -hypertension; resumed coreg, cardizem and imdur- will continue to monitor and adjust the regimen as needed -ESRD-on HD; HD per nephrology. -anemia of chronic disease; epogen with HD- will monitor. -dyslipidemia; resumed statin -colon cancer- f/u as outpatient -DVT prophylaxis; subq heparin . Teodoro Dangelo MD Sep 26, 2016 10:08
[2016-09-26] MEDS: VANCOMYCIN INJ 1,000 MG in SODIUM CHLOR 0.9% 250 ML INJ 250 ML IV SCH ×2 (11:22→12:49)
[2016-09-26] MEDS: CARVEDILOL 12.5 MG TAB PO SCH (13:41)
[2016-09-26] MEDS: lamoTRIgine 100 MG TAB PO SCH ×2 (13:41→20:41)
[2016-09-26] MEDS: DILTIAZEM-CD 180 MG CAP ER PO SCH (13:41)
[2016-09-26] MEDS: ATORVASTATIN 80 MG TAB PO SCH (20:41)
[2016-09-26] MEDS ORDERED: INSULIN DETEMIR 100 UNITS/ML VIAL SQ SCH (21:00)
[2016-09-27] VITALS (10 sets, daily range): BP systolic 123–145; BP diastolic 50–78; PULSE 74–115; RESP 17–20; TEMP 96.6–99; O2SAT 92–97
[2016-09-27] MEDS: HEPARIN SODIUM - SQ 10,000 UNITS/ML VIAL SQ SCH ×3 (01:00→18:08)
[2016-09-27] MEDS: ALPRAZolam 0.25 MG TAB PO SCH ×3 (05:05→21:22)
[2016-09-27] MEDS: PANTOPRAZOLE SOD 40 MG DELAYED RELEASE TAB PO SCH (05:05)
[2016-09-27] MEDS: PIPERACIL-TAZO 2.25 GM PREMIX 50 ML IV SCH ×3 (05:17→21:21)
[2016-09-27] MEDS: LOW DOSE INSULIN NOVOLOG SUPPLEMENTAL SCALE SQ SCH ×4 (06:43→21:20)
[2016-09-27] MEDS: SEVELAMER CARBONATE 800 MG TAB PO SCH ×3 (06:45→18:08)
[2016-09-27] MEDS: ISOSORBIDE MONONITRATE 60 MG TAB PO SCH ×2 (06:47→18:08)
[2016-09-27] MEDS: CARVEDILOL 12.5 MG TAB PO SCH (06:48)
[2016-09-27] MEDS: ACETAMINOPHEN/HYDROcodone 325 MG/5 MG TAB PO PRN (06:53)
[2016-09-27] MEDS: lamoTRIgine 100 MG TAB PO SCH ×2 (09:05→21:21)
[2016-09-27] MEDS: DILTIAZEM-CD 180 MG CAP ER PO SCH (09:05)
[2016-09-27] MEDS: SODIUM CHLORIDE 0.9% FLUSH 10 ML FLUSH IV FLUSH PRN ×3 (09:05→22:17)
[2016-09-27] MEDS: GABAPENTIN 100 MG CAP PO SCH ×3 (09:05→18:08)
--- NOTE | 2016-09-27 09:10 | HHI.PR ---
Subjective Remarks resting comfortably with no distress. pain is controlled. no new complaints. d/w the RN and no acute issues over night. Objective Vitals Vital Signs Date Time Temp Pulse Resp B/P Pulse Ox O2 Delivery O2 Flow Rate FiO2 09/27/16 07:30 96.9 76 20 133/61 93 09/27/16 04:00 98.6 88 19 131/67 96 09/27/16 00:58 80 09/27/16 00:00 99.0 89 17 123/50 97 09/26/16 21:47 97 09/26/16 20:00 99.2 90 19 141/74 96 09/26/16 16:00 98.4 108 19 116/64 93 09/26/16 15:00 93 09/26/16 13:30 98.7 100 19 125/66 93 09/26/16 09:47 99 I/O 09/26/16 09/26/16 09/26/16 09/27/16 09/27/16 09/27/16 07:00 15:00 23:00 07:00 15:00 23:00 Intake Total 60 ml 2285 ml 120 ml 0 ml Output Total 50 ml 4000 ml Balance 10 ml -1715 ml 120 ml 0 ml Intake Oral 60 ml 960 ml 120 ml 0 ml IV Total 1325 ml Output Urine Total 50 ml Hemodialysis 4000 ml # Voids 0 0 # Bowel Movements 0 0 Result Diagram: 09/23/16 1723 09/23/16 1723 Imaging Last Impressions Foot X-Ray 09/23/16 0000 Signed Impressions: Service Date/Time: Friday, September 23, 2016 20:58 - CONCLUSION: Interim great toe amputation since the MRI. Suspected osteomyelitis of the first metatarsal head. Telly Whitley MD Objective Remarks GENERAL: This is a well-nourished, well-developed patient, in no apparent distress. CARDIOVASCULAR: Regular rate and regular rhythm without murmurs, gallops, or rubs. RESPIRATORY: Clear to auscultation. Breath sounds equal bilaterally. No wheezes , rales, or rhonchi. GASTROINTESTINAL: Abdomen soft, non-tender, nondistended. Normal, active bowel sounds MUSCULOSKELETAL: left foot covered with clean dressing. NEURO: Alert & Oriented x4 to person, place, time, situation. Moves all ext x4 Medications and IVs Current Medications Dextrose (D50w (Vial) Inj) 25 ml UNSCH PRN IV PUSH HYPOGLYCEMIA - SEE COMMENTS ; Start 09/23/16 at 17:00; Stop 09/25/16 at 07:08; Status DC Glucagon 1 mg 1 mg UNSCH PRN OTHER HYPOGLYCEMIA-SEE COMMENTS; Start 09/23/16 at 17:00; Stop 09/25/16 at 07:08; Status DC Vancomycin HCl 1000 mg/Sodium Chloride 250 ml @ 250 mls/hr Q12H IV Last administered on 09/24/16 06:38; Start 09/23/16 at 18:00; Stop 09/24/16 at 10:07 ; Status DC Piperacillin Sod/ Tazobactam Sod (Zosyn 3.375 Gm Premix) 50 ml @ 100 mls/hr Q6H IV Last administered on 09/24/16 05:04; Start 09/23/16 at 17:00; Stop at 10:08; Status DC Heparin Sodium (Porcine) (Heparin Inj) 5,000 units Q8H SQ Last administered on 09/27/16 01:00; Start 09/23/16 at 17:00 Insulin Aspart 1 1 ACHS SLIDING SCALE SQ Last administered on 09/26/16 20:54 ; Start 09/23/16 at 21:00 Sodium Chloride (NS 1000 ml Inj) 1,000 ml @ 90 mls/hr Q11H7M IV Last administered on 09/23/16 22:21; Start 09/23/16 at 20:00; Stop 09/24/16 at 08:41 ; Status DC Atorvastatin Calcium (Lipitor) 80 mg HS PO Last administered on 09/26/16 20:41 ; Start 09/23/16 at 21:00 Carvedilol (Coreg) 25 mg DAILY@08 PO Last administered on 09/27/16 06:48; Start 09/24/16 at 08:00 Gabapentin (Neurontin) 100 mg TID PO Last administered on 09/26/16 17:58; Start 09/23/16 at 20:00 Pantoprazole Sodium (Protonix) 40 mg DAILY@06 PO Last administered on 05:05; Start 09/24/16 at 06:00 Sevelamer Carbonate (Renvela) 800 mg TIDAC PO Last administered on 09/27/16 06 :45; Start 09/24/16 at 08:00 Lamotrigine (LaMICtal) 100 mg BID PO Last administered on 09/26/16 20:41; Start 09/23/16 at 21:00 Alprazolam (Xanax) 0.25 mg Q8H PO Last administered on 09/27/16 05:05; Start 09/23/16 at 22:00 Amlodipine Besylate (Norvasc) 10 mg DAILY PO Last administered on 09/26/16 13: 41; Start 09/24/16 at 09:00 Isosorbide Mononitrate (Imdur) 120 mg BID@07,18 PO Last administered on 06:47; Start 09/23/16 at 18:56 Diltiazem HCl 180 mg 180 mg DAILY PO Last administered on 09/26/16 13:41; Start 09/24/16 at 09:00 Sodium Chloride (NS 1000 ml Inj) 1,000 ml @ 0 mls/hr Q0M PRN IV For [place] & Rinse Back Last administered on 09/24/16 13:09; Start 09/24/16 at 08:31 Heparin Sodium (Porcine) 8000 units 8,000 units UNSCH PRN IVF WITH DIALYSIS Last administered on 09/26/16 09:00; Start 09/24/16 at 08:45 Sodium Chloride 1,000 ml @ 200 mls/hr Q5H PRN IV WITH DIALYSIS; Start 09/24/16 at 08:31 Sodium Chloride (NS 1000 ml Inj) 1,000 ml @ 0 mls/hr Q0M PRN IV WITH DIALYSIS; Start 09/24/16 at 08:31 Mannitol (Mannitol Inj) 12.5 gm UNSCH PRN IV WITH DIALYSIS; Start 09/24/16 at 08:45 Albumin Human (Albumin 25% Inj) 25 gm UNSCH PRN IV WITH DIALYSIS; Start at 08:45 Sodium Chloride (NS Flush) 5 ml UNSCH PRN IV FLUSH WITH DIALYSIS Last administered on 09/25/16 08:15; Start 09/24/16 at 08:45 Heparin Sodium (Porcine) (Heparin Inj) UNSCH PRN .XX WITH DIALYSIS; Start at 08:45 Gentamicin Sulfate (Gentamicin (Dialysis) Inj) 20 mg UNSCH PRN IV WITH DIALYSIS ; Start 09/24/16 at 08:45 Ondansetron HCl (Zofran Inj) 4 mg UNSCH PRN IV WITH DIALYSIS; Start 09/24/16 at 08:45 Acetaminophen (Tylenol) 650 mg UNSCH PRN PO TEMP > 101F Last administered on 16:28; Start 09/24/16 at 08:45 Diphenhydramine HCl (Benadryl) 25 mg UNSCH PRN PO for hives/itching/anaphylaxis ; Start 09/24/16 at 08:45 Nitroglycerin (Nitrostat Sl) 0.4 mg UNSCH PRN SL CHEST PAIN; Start 09/24/16 at 08:45 Clonidine (Catapres) 0.1 mg UNSCH PRN PO for BP > 180/100 X 2 readings; Start 09/24/16 at 08:45 Epoetin Puneet (Epogen Inj) 10,000 units UNSCH PRN IV WITH DIALYSIS Last administered on 09/26/16 09:47; Start 09/24/16 at 08:45 Gelatin 1 foam 1 foam UNSCH PRN TOP SEE LABEL COMMENTS Last administered on 13:09; Start 09/24/16 at 08:45 Vancomycin HCl 1000 mg/Sodium Chloride 250 ml @ 250 mls/hr Q48H IV Last administered on 09/26/16 05:53; Start 09/26/16 at 06:00; Stop 09/26/16 at 09:32 ; Status DC Piperacillin Sod/ Tazobactam Sod (Zosyn 2.25 Gm Premix) 50 ml @ 100 mls/hr Q8H IV Last administered on 09/27/16 05:17; Start 09/24/16 at 13:00; Stop at 12:59 Metoprolol Tartrate (Lopressor Inj) 5 mg STK-MED ONCE .ROUTE Last administered on 09/24/16 11:11; Start 09/24/16 at 11:11; Stop 09/24/16 at 11:12; Status DC Fentanyl Citrate (fentaNYL INJ) 100 mcg STK-MED ONCE .ROUTE ; Start 09/24/16 at 11:16; Stop 09/24/16 at 11:17; Status DC Hydromorphone HCl (*DILAUDID PF INJ PERIprocedural ONLY) 1 mg STK-MED ONCE .ROUTE Last administered on 09/24/16 11:29; Start 09/24/16 at 11:29; Stop at 11:30; Status DC Miscellaneous Information ALL NURSING DEPARTME... UNSCH PRN .XX SEE LABEL COMMENTS; Start 09/24/16 at 11:00; Stop 09/25/16 at 13:45; Status DC Metoprolol Tartrate (Lopressor Inj) 1 mg Q10M IV PUSH Last administered on 09/24 11:50; Start 09/24/16 at 11:12; Stop 09/24/16 at 15:18; Status DC Hydromorphone HCl (Dilaudid Pf Inj) 0.5 mg NOW ONCE IV Last administered on 20:13; Start 09/24/16 at 12:00; Stop 09/24/16 at 19:20; Status DC Acetaminophen/ Hydrocodone Bitart ([place] 5-325 Mg) 1 tab Q4H PRN PO PAIN SCALE 1 TO 5 Last administered on 09/27/16 06:53; Start 09/25/16 at 00:30 Acetaminophen/ Hydrocodone Bitart ([place] 5-325 Mg) 2 tab Q4H PRN PO PAIN > 5; Start 09/25/16 at 00:30 Dextrose (D50w (Vial) Inj) 50 ml UNSCH PRN IV HYPOGLYCEMIA-SEE COMMENTS; Start 09/25/16 at 07:15 Glucagon 1 mg 1 mg UNSCH PRN OTHER HYPOGLYCEMIA-SEE COMMENTS; Start 09/25/16 at 07:15 Vancomycin HCl/ Sodium Chloride (Vancomycin Inj/ NS 250 ml Inj) 250 ml @ 250 mls/hr WITH DIALYSIS IV Last administered on 09/26/16 12:49; Start 09/26/16 at 09:45 Insulin Detemir (Levemir Inj) 5 units HS SQ Last administered on 09/26/16 20: 43; Start 09/26/16 at 21:00 A/P Assessment and Plan A/P - left great toe osteomyelitis- s/p left metatarsal resection continue with IV antibiotics and pain control- management per vascular surgery -diabetes mellitus; accu-check with SSI- A1c 7.5. increase levemir and continue with SSI. -hypertension; resumed coreg, cardizem and imdur- will continue to monitor and adjust the regimen as needed -ESRD-on HD; HD per nephrology. -anemia of chronic disease; epogen with HD- will monitor. -dyslipidemia; resumed statin -colon cancer- f/u as outpatient -DVT prophylaxis; subq heparin . Teodoro Dangelo MD Sep 27, 2016 09:10
--- NOTE | 2016-09-27 09:12 | HHI.NPPN ---
Subjective General Problems: Hypertension Renal Failure: End Stage Renal Disease Interval History Underwent dialysis yesterday. Pain is controlled. Review of Systems Musculoskeletal MS: Pain/Stiffness MS Remarks foot post operatively Objective Data Data 09/26/16 09/27/16 19:00 07:00 Intake Total 2285 ml 120 ml Output Total 4000 ml Balance -1715 ml 120 ml Intake Oral 960 ml 120 ml IV Total 1325 ml Hemodialysis 4000 ml # Voids 0 # Bowel Movements 0 Vital Signs Date Time Temp Pulse Resp B/P Pulse Ox O2 Delivery O2 Flow Rate FiO2 09/27/16 07:30 96.9 76 20 133/61 93 09/27/16 04:00 98.6 88 19 131/67 96 09/27/16 00:58 80 09/27/16 00:00 99.0 89 17 123/50 97 09/26/16 21:47 97 09/26/16 20:00 99.2 90 19 141/74 96 09/26/16 16:00 98.4 108 19 116/64 93 09/26/16 15:00 93 09/26/16 13:30 98.7 100 19 125/66 93 09/26/16 09:47 99 -: 09/23/16 1723 09/23/16 1723 Physical Exam General Appearance: Well Developed, Well Nourished, No Acute Distress, Comfortable, Obese Throat Throat Exam: Oral Mucosa [place] & Moist Pulmonary Resp Exam: Clear Bilaterally, Breath Sounds Equal Cardiology CV Exam: Good Perfusion, Irregular Gastrointestinal/Abdomen GI Exam: Soft, Non-Tender, Bowel Sounds Present, Positive Bowel Movement Musculoskeletal MS Exam: Normal Tone, Good Strength Integumentary Skin Exam: Warm, Dry Extremeties Extremities Exam: No Edema, Pedal Pulses Palpable Neurologic Neuro Exam: Alert, Awake, Oriented, Speech Clear, Moving All Extremities Assessment/Plan Discussed Condition With: Patient Assessment Summary: Anemia of CKD, [place] Hyperparathyroid, Hypertension, End Stage Renal Disease Problem List: (1) ESRD (end stage renal disease) Plan: We will continue dialysis TTS. avoid IVF gadolinium is contraindicated Repeat labs tomorrow. (2) Toe gangrene Plan: s/p I&D, he is on vancomycin and Zosyn, I have changed Vancomycin to be given with dialysis. vascular is following continue wound care He may not need any antibiotics. (3) Hypertension Plan: resume home medications (4) Metabolic bone disease Plan: continue Renvela (5) Anemia of renal disease Plan: Epogen with dialysis Doni Floyd MD Sep 27, 2016 09:12
--- NOTE | 2016-09-27 12:04 | PD.VS.PN ---
Subjective Procedure(s): LEFT first metatarsectomy Subjective/Hospital Course patient without complaints. Objective Vitals/I&O Date Time Temp Pulse Resp B/P Pulse Ox O2 Delivery O2 Flow Rate FiO2 09/27/16 11:43 97.2 74 20 125/60 95 09/27/16 10:29 77 09/27/16 08:30 92 21 09/27/16 07:30 96.9 76 20 133/61 93 09/27/16 04:00 98.6 88 19 131/67 96 09/27/16 00:58 80 09/27/16 00:00 99.0 89 17 123/50 97 09/26/16 21:47 97 09/26/16 20:00 99.2 90 19 141/74 96 09/26/16 16:00 98.4 108 19 116/64 93 09/26/16 15:00 93 09/26/16 13:30 98.7 100 19 125/66 93 09/27/16 09/27/16 09/27/16 07:00 15:00 23:00 Intake Total 0 ml Balance 0 ml Incisions: left 1st MT wound vac dressing [place] fluid in container. Assessment and Plan Plan 1. wound care: wound vac in place. Changed early next week. 2. continue IV abx. 3. BS control. Rehab next week (early/mid week). Discharge Planning likely early to mid next week to rehab Angel Hidalgo DO Sep 27, 2016 12:04
[2016-09-27] MEDS ORDERED: INSULIN DETEMIR 100 UNITS/ML VIAL SQ SCH (21:00)
[2016-09-27] MEDS: ATORVASTATIN 80 MG TAB PO SCH (21:22)
[2016-09-28] VITALS (7 sets, daily range): BP systolic 92–141; BP diastolic 50–66; PULSE 73–101; RESP 18–20; TEMP 96.6–98.4; O2SAT 91–96
[2016-09-28] MEDS: HEPARIN SODIUM - SQ 10,000 UNITS/ML VIAL SQ SCH ×3 (00:11→17:17)
[2016-09-28] MEDS: PIPERACIL-TAZO 2.25 GM PREMIX 50 ML IV SCH ×3 (05:25→21:14)
[2016-09-28] MEDS: SODIUM CHLORIDE 0.9% FLUSH 10 ML FLUSH IV FLUSH PRN ×3 (05:27→21:15)
[2016-09-28] MEDS: PANTOPRAZOLE SOD 40 MG DELAYED RELEASE TAB PO SCH (06:00)
[2016-09-28] MEDS: ISOSORBIDE MONONITRATE 60 MG TAB PO SCH ×2 (06:00→17:18)
[2016-09-28] MEDS: ALPRAZolam 0.25 MG TAB PO SCH ×3 (06:00→21:15)
[2016-09-28] MEDS: ACETAMINOPHEN/HYDROcodone 325 MG/5 MG TAB PO PRN (06:12)
[2016-09-28] MEDS: LOW DOSE INSULIN NOVOLOG SUPPLEMENTAL SCALE SQ SCH ×4 (06:19→21:14)
[2016-09-28 07:34] LABS: AUTOMATED NEUTROPHIL # 7.8 TH/MM3 (1.8-7.7); BASOPHIL % 0.3 % (0.0-2.0); EOSINOPHIL # 0.3 TH/MM3 (0-0.4); EOSINOPHIL % 3.3 % (0.0-4.0); HEMATOCRIT 28.3 % (39.0-51.0); HEMO FLAGS DIFF FINAL; MEAN CELL VOLUME 92.8 FL (80.0-100.0); MEAN CORPUSCULAR HEMOGLOBIN 29.7 PG (27.0-34.0); MONO % 7.9 % (0.0-8.0); NEUT % 78.5 % (16.0-70.0); PLATELET COUNT 232 TH/MM3 (150-450); RED BLOOD COUNT 3.05 MIL/MM3 (4.50-5.90); RED CELL DISTRIBUTION WIDTH 17.9 % (11.6-17.2); WHITE BLOOD COUNT 9.9 TH/MM3 (4.0-11.0)
[2016-09-28 07:44] LABS: POTASSIUM 4.3 MEQ/L (3.5-5.1)
[2016-09-28] MEDS: SEVELAMER CARBONATE 800 MG TAB PO SCH ×3 (08:35→17:17)
[2016-09-28] MEDS: GABAPENTIN 100 MG CAP PO SCH ×3 (08:36→17:17)
[2016-09-28] MEDS: DILTIAZEM-CD 180 MG CAP ER PO SCH (08:36)
[2016-09-28] MEDS: lamoTRIgine 100 MG TAB PO SCH ×2 (08:36→21:15)
[2016-09-28] MEDS: CARVEDILOL 12.5 MG TAB PO SCH (08:36)
--- NOTE | 2016-09-28 09:31 | HHI.PR ---
Subjective Remarks in no acute distress. pain is controlled. no fever. FSBS this morning; 166. Objective Vitals Vital Signs Date Time Temp Pulse Resp B/P Pulse Ox O2 Delivery O2 Flow Rate FiO2 09/28/16 07:50 98.4 101 20 134/59 94 09/28/16 04:00 96.6 89 19 140/66 94 09/28/16 00:00 97.8 84 18 122/64 96 09/27/16 20:19 90 09/27/16 20:00 98.0 115 19 145/78 94 09/27/16 15:50 96.6 76 20 131/62 94 09/27/16 11:43 97.2 74 20 125/60 95 09/27/16 10:29 77 I/O 09/27/16 09/27/16 09/27/16 09/28/16 09/28/16 09/28/16 07:00 15:00 23:00 07:00 15:00 23:00 Intake Total 0 ml 585 ml 115 ml 55 ml Output Total 50 ml 200 ml Balance 0 ml 585 ml 65 ml -145 ml Intake Oral 0 ml 510 ml 60 ml 0 ml IV Total 75 ml 55 ml 55 ml Output Urine Total 50 ml 200 ml # Voids 0 0 # Bowel Movements 0 0 0 0 Result Diagram: 09/28/16 0715 09/28/16 0715 Imaging Last Impressions Foot X-Ray 09/23/16 0000 Signed Impressions: Service Date/Time: Friday, September 23, 2016 20:58 - CONCLUSION: Interim great toe amputation since the MRI. Suspected osteomyelitis of the first metatarsal head. Telly Whitley MD Objective Remarks GENERAL: This is a well-nourished, well-developed patient, in no apparent distress. CARDIOVASCULAR: Regular rate and regular rhythm without murmurs, gallops, or rubs. RESPIRATORY: Clear to auscultation. Breath sounds equal bilaterally. No wheezes , rales, or rhonchi. GASTROINTESTINAL: Abdomen soft, non-tender, nondistended. Normal, active bowel sounds MUSCULOSKELETAL: left foot covered with clean dressing. NEURO: Alert & Oriented x4 to person, place, time, situation. Moves all ext x4 Medications and IVs Current Medications Dextrose (D50w (Vial) Inj) 25 ml UNSCH PRN IV PUSH HYPOGLYCEMIA - SEE COMMENTS ; Start 09/23/16 at 17:00; Stop 09/25/16 at 07:08; Status DC Glucagon 1 mg 1 mg UNSCH PRN OTHER HYPOGLYCEMIA-SEE COMMENTS; Start 09/23/16 at 17:00; Stop 09/25/16 at 07:08; Status DC Vancomycin HCl 1000 mg/Sodium Chloride 250 ml @ 250 mls/hr Q12H IV Last administered on 09/24/16 06:38; Start 09/23/16 at 18:00; Stop 09/24/16 at 10:07 ; Status DC Piperacillin Sod/ Tazobactam Sod (Zosyn 3.375 Gm Premix) 50 ml @ 100 mls/hr Q6H IV Last administered on 09/24/16 05:04; Start 09/23/16 at 17:00; Stop at 10:08; Status DC Heparin Sodium (Porcine) (Heparin Inj) 5,000 units Q8H SQ Last administered on 09/28/16 08:36; Start 09/23/16 at 17:00 Insulin Aspart 1 1 ACHS SLIDING SCALE SQ Last administered on 09/28/16 06:19 ; Start 09/23/16 at 21:00 Sodium Chloride (NS 1000 ml Inj) 1,000 ml @ 90 mls/hr Q11H7M IV Last administered on 09/23/16 22:21; Start 09/23/16 at 20:00; Stop 09/24/16 at 08:41 ; Status DC Atorvastatin Calcium (Lipitor) 80 mg HS PO Last administered on 09/27/16 21:22 ; Start 09/23/16 at 21:00 Carvedilol (Coreg) 25 mg DAILY@08 PO Last administered on 09/28/16 08:36; Start 09/24/16 at 08:00 Gabapentin (Neurontin) 100 mg TID PO Last administered on 09/28/16 08:36; Start 09/23/16 at 20:00 Pantoprazole Sodium (Protonix) 40 mg DAILY@06 PO Last administered on 06:00; Start 09/24/16 at 06:00 Sevelamer Carbonate (Renvela) 800 mg TIDAC PO Last administered on 09/28/16 08 :35; Start 09/24/16 at 08:00 Lamotrigine (LaMICtal) 100 mg BID PO Last administered on 09/28/16 08:36; Start 09/23/16 at 21:00 Alprazolam (Xanax) 0.25 mg Q8H PO Last administered on 09/28/16 06:00; Start 09/23/16 at 22:00 Amlodipine Besylate (Norvasc) 10 mg DAILY PO Last administered on 09/28/16 08: 36; Start 09/24/16 at 09:00 Isosorbide Mononitrate (Imdur) 120 mg BID@07,18 PO Last administered on 06:00; Start 09/23/16 at 18:56 Diltiazem HCl 180 mg 180 mg DAILY PO Last administered on 09/28/16 08:36; Start 09/24/16 at 09:00 Sodium Chloride (NS 1000 ml Inj) 1,000 ml @ 0 mls/hr Q0M PRN IV For Prime & Rinse Back Last administered on 09/24/16 13:09; Start 09/24/16 at 08:31 Heparin Sodium (Porcine) 8000 units 8,000 units UNSCH PRN IVF WITH DIALYSIS Last administered on 09/26/16 09:00; Start 09/24/16 at 08:45 Sodium Chloride 1,000 ml @ 200 mls/hr Q5H PRN IV WITH DIALYSIS; Start 09/24/16 at 08:31 Sodium Chloride (NS 1000 ml Inj) 1,000 ml @ 0 mls/hr Q0M PRN IV WITH DIALYSIS; Start 09/24/16 at 08:31 Mannitol (Mannitol Inj) 12.5 gm UNSCH PRN IV WITH DIALYSIS; Start 09/24/16 at 08:45 Albumin Human (Albumin 25% Inj) 25 gm UNSCH PRN IV WITH DIALYSIS; Start at 08:45 Sodium Chloride (NS Flush) 5 ml UNSCH PRN IV FLUSH WITH DIALYSIS Last administered on 09/28/16 06:03; Start 09/24/16 at 08:45 Heparin Sodium (Porcine) (Heparin Inj) UNSCH PRN .XX WITH DIALYSIS; Start at 08:45 Gentamicin Sulfate (Gentamicin (Dialysis) Inj) 20 mg UNSCH PRN IV WITH DIALYSIS ; Start 09/24/16 at 08:45 Ondansetron HCl (Zofran Inj) 4 mg UNSCH PRN IV WITH DIALYSIS; Start 09/24/16 at 08:45 Acetaminophen (Tylenol) 650 mg UNSCH PRN PO TEMP > 101F Last administered on 16:28; Start 09/24/16 at 08:45 Diphenhydramine HCl (Benadryl) 25 mg UNSCH PRN PO for hives/itching/anaphylaxis ; Start 09/24/16 at 08:45 Nitroglycerin (Nitrostat Sl) 0.4 mg UNSCH PRN SL CHEST PAIN; Start 09/24/16 at 08:45 Clonidine (Catapres) 0.1 mg UNSCH PRN PO for BP > 180/100 X 2 readings; Start 09/24/16 at 08:45 Epoetin Puneet (Epogen Inj) 10,000 units UNSCH PRN IV WITH DIALYSIS Last administered on 09/26/16 09:47; Start 09/24/16 at 08:45 Gelatin 1 foam 1 foam UNSCH PRN TOP SEE LABEL COMMENTS Last administered on 13:09; Start 09/24/16 at 08:45 Vancomycin HCl 1000 mg/Sodium Chloride 250 ml @ 250 mls/hr Q48H IV Last administered on 09/26/16 05:53; Start 09/26/16 at 06:00; Stop 09/26/16 at 09:32 ; Status DC Piperacillin Sod/ Tazobactam Sod (Zosyn 2.25 Gm Premix) 50 ml @ 100 mls/hr Q8H IV Last administered on 09/28/16 05:25; Start 09/24/16 at 13:00; Stop at 12:59 Metoprolol Tartrate (Lopressor Inj) 5 mg STK-MED ONCE .ROUTE Last administered on 09/24/16 11:11; Start 09/24/16 at 11:11; Stop 09/24/16 at 11:12; Status DC Fentanyl Citrate (fentaNYL INJ) 100 mcg STK-MED ONCE .ROUTE ; Start 09/24/16 at 11:16; Stop 09/24/16 at 11:17; Status DC Hydromorphone HCl (*DILAUDID PF INJ PERIprocedural ONLY) 1 mg STK-MED ONCE .ROUTE Last administered on 09/24/16 11:29; Start 09/24/16 at 11:29; Stop at 11:30; Status DC Miscellaneous Information ALL NURSING DEPARTME... UNSCH PRN .XX SEE LABEL COMMENTS; Start 09/24/16 at 11:00; Stop 09/25/16 at 13:45; Status DC Metoprolol Tartrate (Lopressor Inj) 1 mg Q10M IV PUSH Last administered on 09/24 11:50; Start 09/24/16 at 11:12; Stop 09/24/16 at 15:18; Status DC Hydromorphone HCl (Dilaudid Pf Inj) 0.5 mg NOW ONCE IV Last administered on 20:13; Start 09/24/16 at 12:00; Stop 09/24/16 at 19:20; Status DC Acetaminophen/ Hydrocodone Bitart ([place] 5-325 Mg) 1 tab Q4H PRN PO PAIN SCALE 1 TO 5 Last administered on 09/28/16 06:12; Start 09/25/16 at 00:30 Acetaminophen/ Hydrocodone Bitart ([place] 5-325 Mg) 2 tab Q4H PRN PO PAIN > 5; Start 09/25/16 at 00:30 Dextrose (D50w (Vial) Inj) 50 ml UNSCH PRN IV HYPOGLYCEMIA-SEE COMMENTS; Start 09/25/16 at 07:15 Glucagon 1 mg 1 mg UNSCH PRN OTHER HYPOGLYCEMIA-SEE COMMENTS; Start 09/25/16 at 07:15 Vancomycin HCl/ Sodium Chloride (Vancomycin Inj/ NS 250 ml Inj) 250 ml @ 250 mls/hr WITH DIALYSIS IV Last administered on 09/26/16 12:49; Start 09/26/16 at 09:45 Insulin Detemir (Levemir Inj) 5 units HS SQ Last administered on 09/26/16 20: 43; Start 09/26/16 at 21:00; Stop 09/27/16 at 09:12; Status DC Insulin Detemir (Levemir Inj) 10 units HS SQ Last administered on 09/27/16 21: 15; Start 09/27/16 at 21:00 A/P Assessment and Plan A/P - left great toe osteomyelitis- s/p left metatarsal resection continue with IV antibiotics and pain control- management per vascular surgery -diabetes mellitus; accu-check with SSI- A1c 7.5. increase levemir to 15 units sub qhs and continue with SSI. -hypertension; resumed coreg, cardizem and imdur- will continue to monitor and adjust the regimen as needed -ESRD-on HD; HD per nephrology. -anemia of chronic disease; epogen with HD- will monitor. -dyslipidemia; resumed statin -colon cancer- f/u as outpatient -DVT prophylaxis; subq heparin . Discharge Planning per vascular surgery. Teodoro Dangelo MD Sep 28, 2016 09:31
--- NOTE | 2016-09-28 09:37 | HHI.NPPN ---
Subjective General Problems: Edema, Hypertension Renal Failure: Chronic, End Stage Renal Disease Interval History Lying in bed, awake and alert. No changes. (Skyla Hernandez) Review of Systems Musculoskeletal MS: Pain/Stiffness MS Remarks foot post operatively (Skyla Hernandez) Objective Data Data 09/27/16 09/28/16 19:00 07:00 Intake Total 585 ml 170 ml Output Total 250 ml Balance 585 ml -80 ml Intake Oral 510 ml 60 ml IV Total 75 ml 110 ml Output Urine Total 250 ml # Voids 0 # Bowel Movements 0 0 Vital Signs Date Time Temp Pulse Resp B/P Pulse Ox O2 Delivery O2 Flow Rate FiO2 09/28/16 07:50 98.4 101 20 134/59 94 09/28/16 04:00 96.6 89 19 140/66 94 09/28/16 00:00 97.8 84 18 122/64 96 09/27/16 20:19 90 09/27/16 20:00 98.0 115 19 145/78 94 09/27/16 15:50 96.6 76 20 131/62 94 09/27/16 11:43 97.2 74 20 125/60 95 09/27/16 10:29 77 (Skyla Hernandez) -: 09/28/16 0715 09/28/16 0715 Physical Exam General Appearance: Well Developed, Well Nourished, No Acute Distress, Comfortable, Obese (Skyla Hernandez) Throat Throat Exam: Oral Mucosa [place] & Moist (Skyla Hernandez) Pulmonary Resp Exam: Clear Bilaterally, Breath Sounds Equal (Skyla Hernandez) Cardiology CV Exam: Good Perfusion, Irregular (Skyla Hernandez) Gastrointestinal/Abdomen GI Exam: Soft, Non-Tender, Bowel Sounds Present, Positive Bowel Movement GI Remarks morbidly obese (Skyla Hernandez) Musculoskeletal MS Exam: Normal Tone, Good Strength MS Remarks s/p left great toe amputation, dressing in place (Skyla Hernandez) Integumentary Skin Exam: Warm, Dry (Skyla Hernandez) Extremeties Extremities Exam: No Edema, Pedal Pulses Palpable (Skyla Hernandez) Neurologic Neuro Exam: Alert, Awake, Oriented, Speech Clear, Moving All Extremities ( Skyla Hernandez) Assessment/Plan Discussed Condition With: Patient Assessment Summary: Anemia of CKD, [place] Hyperparathyroid, Hypertension, End Stage Renal Disease Problem List: (1) ESRD (end stage renal disease) Plan: We will continue dialysis TTS. He is due tomorrow avoid IVF Gadolinium is contraindicated No acute renal concerns No dietary protein restriction (2) Toe gangrene Plan: s/p I&D, he is on vancomycin and Zosyn, Vancomycin to be given with dialysis. vascular is following continue wound care plan to go to rehab this week (3) Hypertension Plan: resume home medications (4) Metabolic bone disease Plan: continue Renvela , dosage increased (5) Anemia of renal disease Plan: Epogen with dialysis (Skyla Hernandez) Plan patient was seen and examined. Dialysis will be continued TTS. Epogen for anemia. Renvela for hyperphosphatemia. (Doni Floyd MD) Skyla Hernandez Sep 28, 2016 09:37 Doni Floyd MD Sep 28, 2016 14:54
--- NOTE | 2016-09-28 11:55 | PD.VS.PN ---
Subjective POD #: 4 Procedure(s): LEFT first metatarsectomy Subjective/Hospital Course Pt in bed without complaints Wound vac changed this am Left lateral 5th met/head darkening area noted Objective Vitals/I&O Date Time Temp Pulse Resp B/P Pulse Ox O2 Delivery O2 Flow Rate FiO2 09/28/16 07:50 98.4 101 20 134/59 94 09/28/16 04:00 96.6 89 19 140/66 94 09/28/16 00:00 97.8 84 18 122/64 96 09/27/16 20:19 90 09/27/16 20:00 98.0 115 19 145/78 94 09/27/16 15:50 96.6 76 20 131/62 94 09/27/16 11:43 97.2 74 20 125/60 95 09/28/16 09/28/16 09/28/16 07:00 15:00 23:00 Intake Total 55 ml Output Total 200 ml Balance -145 ml Exam: GENERAL: Pt alert in NAD, GCS 15 SKIN: Warm and dry/ Left great toe amputaion site with granulation tissue present/ Darkening discoloration near top border of incision present/ Darkening area present to L lateral 5th met/head CARDIOVASCULAR: RRR, +S1,S2 RESPIRATORY: BS CTA Bilat feet warm with motor intact + Left DP/PT biphasic signals Laboratory Laboratory Tests Test 09/28/16 07:15 White Blood Count 9.9 Red Blood Count 3.05 Hemoglobin 9.0 Hematocrit 28.3 Mean Corpuscular Volume 92.8 Mean Corpuscular Hemoglobin 29.7 Mean Corpuscular Hemoglobin 32.0 Concent Red Cell Distribution Width 17.9 Platelet Count 232 Mean Platelet Volume 6.4 Neutrophils (%) (Auto) 78.5 Lymphocytes (%) (Auto) 10.0 Monocytes (%) (Auto) 7.9 Eosinophils (%) (Auto) 3.3 Basophils (%) (Auto) 0.3 Neutrophils # (Auto) 7.8 Lymphocytes # (Auto) 1.0 Monocytes # (Auto) 0.8 Eosinophils # (Auto) 0.3 Basophils # (Auto) 0.0 CBC Comment DIFF FINAL Differential Comment Sodium Level 135 Potassium Level 4.3 Chloride Level 95 Carbon Dioxide Level 25.0 Anion Gap 15 Blood Urea Nitrogen 63 Creatinine 8.84 Estimat Glomerular Filtration 6 Rate Random Glucose 162 Calcium Level 9.0 Phosphorus Level 8.3 Albumin 2.2 Assessment and Plan Plan Plan Continue Veraflow wound vac therapy to Left foot Changed wound vac (Wed) 09/30/[address] [facility] [phone] Discharge Planning D/C planning to Rehab mid week Yaneth Magaña Sep 28, 2016 11:55
--- NOTE | 2016-09-28 13:06 | PD.WCN.NOT ---
Wound Consult Description: L foot Communicated with: GREGG Lewis Recommendation: Next Veraflow Vac dressing change this Wednesday with EFRAIN Schmid Additional Information: Adaptic placed over tendon in wound bed on medial left surgical site after cleansing with NS and before granufoam application. There is an area of boggy purple discoloration noted to left lateral 5th met head ~4cm x 2.5cm that should be kept free from pressure. EFRAIN Magaña ordering soft blue heel raiser boot for left foot and states non weight bearing. Neg Pressure Wound Therapy Wound Location Wound Location: L foot Wound Description Length: 7.6cm Width: 5.5cm Depth: 1.6cm Wound bed appearance: Wound bed to left medial foot presents with ~40% red granulation tissue, ~30% non granulating red tissue, 10% muscle, ~10% fascia, ~5% bone,and ~5% adipose tissue. There is a mild odor within wound bed and no active drainage noted. Periwound appearance: Other (Periwound is discolored, boggy, and macerated with partial thickness skinloss noted at 3 o'clock) Settings Suction: 125 mmHg, Intermittent (Instill 18ml NS, soak for 20min, suction for 2 hours @125mmHg) Intensity: Low Other Information: Bridged, Windowpaned Foam type: Black Number of pieces: 1 Additonal Information There is a new visualized purple boggy discoloration noted to the lateral 5th met head area measuring ~4cm x 2.5cm indicating a deep tissue injury that was left open to air. EFRAIN Magaña in room during discovery and states orders for blue heel raiser boot. Alaina Ramachandran [facility] Sep 28, 2016 13:06
[2016-09-28] MEDS: DOCUSATE SODIUM 100 MG CAP PO PRN (13:39)
[2016-09-28] MEDS ORDERED: INSULIN DETEMIR 100 UNITS/ML VIAL SQ SCH (21:00)
[2016-09-28] MEDS: ATORVASTATIN 80 MG TAB PO SCH (21:15)
[2016-09-29] VITALS (8 sets, daily range): BP systolic 121–157; BP diastolic 56–69; PULSE 78–135; RESP 18–20; TEMP 96.7–99.1; O2SAT 93–95
[2016-09-29] MEDS: HEPARIN SODIUM - SQ 10,000 UNITS/ML VIAL SQ SCH ×3 (00:30→17:50)
[2016-09-29] MEDS: SODIUM CHLORIDE 0.9% FLUSH 10 ML FLUSH IV FLUSH PRN ×2 (04:23→05:06)
[2016-09-29] MEDS: PIPERACIL-TAZO 2.25 GM PREMIX 50 ML IV SCH ×3 (04:23→21:09)
[2016-09-29] MEDS: LOW DOSE INSULIN NOVOLOG SUPPLEMENTAL SCALE SQ SCH ×4 (06:08→21:19)
[2016-09-29] MEDS: PANTOPRAZOLE SOD 40 MG DELAYED RELEASE TAB PO SCH (06:09)
[2016-09-29] MEDS: DOCUSATE SODIUM 100 MG CAP PO PRN (06:09)
[2016-09-29] MEDS: ALPRAZolam 0.25 MG TAB PO SCH ×3 (06:09→21:09)
[2016-09-29] MEDS: ISOSORBIDE MONONITRATE 60 MG TAB PO SCH ×2 (06:15→17:52)
--- NOTE | 2016-09-29 07:32 | HHI.PR ---
Subjective Remarks resting comfortably with no distress. no new complaints. Objective Vitals Vital Signs Date Time Temp Pulse Resp B/P Pulse Ox O2 Delivery O2 Flow Rate FiO2 09/29/16 04:25 97.7 78 18 121/58 95 09/29/16 00:00 96.7 81 18 138/65 94 09/28/16 20:19 73 09/28/16 20:00 96.8 84 18 141/64 94 09/28/16 15:50 98.0 80 20 138/55 96 09/28/16 11:50 98.0 98 20 92/50 91 09/28/16 07:50 98.4 101 20 134/59 94 I/O 09/28/16 09/28/16 09/28/16 09/29/16 09/29/16 09/29/16 07:00 15:00 23:00 07:00 15:00 23:00 Intake Total 55 ml 240 ml 55 ml 55 ml Output Total 200 ml 100 ml 100 ml 75 ml Balance -145 ml 140 ml -45 ml -20 ml Intake Oral 0 ml 240 ml IV Total 55 ml 55 ml 55 ml Output Urine Total 200 ml 100 ml 100 ml 75 ml # Bowel Movements 0 0 Result Diagram: 09/28/16 0715 09/28/16 0715 Imaging Last Impressions Foot X-Ray 09/23/16 0000 Signed Impressions: Service Date/Time: Friday, September 23, 2016 20:58 - CONCLUSION: Interim great toe amputation since the MRI. Suspected osteomyelitis of the first metatarsal head. Telly Whitley MD Objective Remarks GENERAL: This is a well-nourished, well-developed patient, in no apparent distress. CARDIOVASCULAR: Regular rate and regular rhythm without murmurs, gallops, or rubs. RESPIRATORY: Clear to auscultation. Breath sounds equal bilaterally. No wheezes , rales, or rhonchi. GASTROINTESTINAL: Abdomen soft, non-tender, nondistended. Normal, active bowel sounds MUSCULOSKELETAL: left foot covered with clean dressing. NEURO: Alert & Oriented x4 to person, place, time, situation. Moves all ext x4 Medications and IVs Current Medications Dextrose (D50w (Vial) Inj) 25 ml UNSCH PRN IV PUSH HYPOGLYCEMIA - SEE COMMENTS ; Start 09/23/16 at 17:00; Stop 09/25/16 at 07:08; Status DC Glucagon 1 mg 1 mg UNSCH PRN OTHER HYPOGLYCEMIA-SEE COMMENTS; Start 09/23/16 at 17:00; Stop 09/25/16 at 07:08; Status DC Vancomycin HCl 1000 mg/Sodium Chloride 250 ml @ 250 mls/hr Q12H IV Last administered on 09/24/16 06:38; Start 09/23/16 at 18:00; Stop 09/24/16 at 10:07 ; Status DC Piperacillin Sod/ Tazobactam Sod (Zosyn 3.375 Gm Premix) 50 ml @ 100 mls/hr Q6H IV Last administered on 09/24/16 05:04; Start 09/23/16 at 17:00; Stop at 10:08; Status DC Heparin Sodium (Porcine) (Heparin Inj) 5,000 units Q8H SQ Last administered on 09/29/16 00:30; Start 09/23/16 at 17:00 Insulin Aspart 1 1 ACHS SLIDING SCALE SQ Last administered on 09/29/16 06:08 ; Start 09/23/16 at 21:00 Sodium Chloride (NS 1000 ml Inj) 1,000 ml @ 90 mls/hr Q11H7M IV Last administered on 09/23/16 22:21; Start 09/23/16 at 20:00; Stop 09/24/16 at 08:41 ; Status DC Atorvastatin Calcium (Lipitor) 80 mg HS PO Last administered on 09/28/16 21:15 ; Start 09/23/16 at 21:00 Carvedilol (Coreg) 25 mg DAILY@08 PO Last administered on 09/28/16 08:36; Start 09/24/16 at 08:00 Gabapentin (Neurontin) 100 mg TID PO Last administered on 09/28/16 17:17; Start 09/23/16 at 20:00 Pantoprazole Sodium (Protonix) 40 mg DAILY@06 PO Last administered on 06:09; Start 09/24/16 at 06:00 Sevelamer Carbonate (Renvela) 800 mg TIDAC PO Last administered on 09/28/16 08 :35; Start 09/24/16 at 08:00; Stop 09/28/16 at 09:37; Status DC Lamotrigine (LaMICtal) 100 mg BID PO Last administered on 09/28/16 21:15; Start 09/23/16 at 21:00 Alprazolam (Xanax) 0.25 mg Q8H PO Last administered on 09/29/16 06:09; Start 09/23/16 at 22:00 Amlodipine Besylate (Norvasc) 10 mg DAILY PO Last administered on 09/28/16 08: 36; Start 09/24/16 at 09:00 Isosorbide Mononitrate (Imdur) 120 mg BID@07,18 PO Last administered on 06:15; Start 09/23/16 at 18:56 Diltiazem HCl 180 mg 180 mg DAILY PO Last administered on 09/28/16 08:36; Start 09/24/16 at 09:00 Sodium Chloride (NS 1000 ml Inj) 1,000 ml @ 0 mls/hr Q0M PRN IV For Prime & Rinse Back Last administered on 09/24/16 13:09; Start 09/24/16 at 08:31 Heparin Sodium (Porcine) 8000 units 8,000 units UNSCH PRN IVF WITH DIALYSIS Last administered on 09/26/16 09:00; Start 09/24/16 at 08:45 Sodium Chloride 1,000 ml @ 200 mls/hr Q5H PRN IV WITH DIALYSIS; Start 09/24/16 at 08:31 Sodium Chloride (NS 1000 ml Inj) 1,000 ml @ 0 mls/hr Q0M PRN IV WITH DIALYSIS; Start 09/24/16 at 08:31 Mannitol (Mannitol Inj) 12.5 gm UNSCH PRN IV WITH DIALYSIS; Start 09/24/16 at 08:45 Albumin Human (Albumin 25% Inj) 25 gm UNSCH PRN IV WITH DIALYSIS; Start at 08:45 Sodium Chloride (NS Flush) 5 ml UNSCH PRN IV FLUSH WITH DIALYSIS Last administered on 09/29/16 05:06; Start 09/24/16 at 08:45 Heparin Sodium (Porcine) (Heparin Inj) UNSCH PRN .XX WITH DIALYSIS; Start at 08:45 Gentamicin Sulfate (Gentamicin (Dialysis) Inj) 20 mg UNSCH PRN IV WITH DIALYSIS ; Start 09/24/16 at 08:45 Ondansetron HCl (Zofran Inj) 4 mg UNSCH PRN IV WITH DIALYSIS; Start 09/24/16 at 08:45 Acetaminophen (Tylenol) 650 mg UNSCH PRN PO TEMP > 101F Last administered on 16:28; Start 09/24/16 at 08:45 Diphenhydramine HCl (Benadryl) 25 mg UNSCH PRN PO for hives/itching/anaphylaxis ; Start 09/24/16 at 08:45 Nitroglycerin (Nitrostat Sl) 0.4 mg UNSCH PRN SL CHEST PAIN; Start 09/24/16 at 08:45 Clonidine (Catapres) 0.1 mg UNSCH PRN PO for BP > 180/100 X 2 readings; Start 09/24/16 at 08:45 Epoetin Puneet (Epogen Inj) 10,000 units UNSCH PRN IV WITH DIALYSIS Last administered on 09/26/16 09:47; Start 09/24/16 at 08:45 Gelatin 1 foam 1 foam UNSCH PRN TOP SEE LABEL COMMENTS Last administered on 13:09; Start 09/24/16 at 08:45 Vancomycin HCl 1000 mg/Sodium Chloride 250 ml @ 250 mls/hr Q48H IV Last administered on 09/26/16 05:53; Start 09/26/16 at 06:00; Stop 09/26/16 at 09:32 ; Status DC Piperacillin Sod/ Tazobactam Sod (Zosyn 2.25 Gm Premix) 50 ml @ 100 mls/hr Q8H IV Last administered on 09/29/16 04:23; Start 09/24/16 at 13:00; Stop at 12:59 Metoprolol Tartrate (Lopressor Inj) 5 mg STK-MED ONCE .ROUTE Last administered on 09/24/16 11:11; Start 09/24/16 at 11:11; Stop 09/24/16 at 11:12; Status DC Fentanyl Citrate (fentaNYL INJ) 100 mcg STK-MED ONCE .ROUTE ; Start 09/24/16 at 11:16; Stop 09/24/16 at 11:17; Status DC Hydromorphone HCl (*DILAUDID PF INJ PERIprocedural ONLY) 1 mg STK-MED ONCE .ROUTE Last administered on 09/24/16 11:29; Start 09/24/16 at 11:29; Stop at 11:30; Status DC Miscellaneous Information ALL NURSING DEPARTME... UNSCH PRN .XX SEE LABEL COMMENTS; Start 09/24/16 at 11:00; Stop 09/25/16 at 13:45; Status DC Metoprolol Tartrate (Lopressor Inj) 1 mg Q10M IV PUSH Last administered on 09/24 11:50; Start 09/24/16 at 11:12; Stop 09/24/16 at 15:18; Status DC Hydromorphone HCl (Dilaudid Pf Inj) 0.5 mg NOW ONCE IV Last administered on 20:13; Start 09/24/16 at 12:00; Stop 09/24/16 at 19:20; Status DC Acetaminophen/ Hydrocodone Bitart ([place] 5-325 Mg) 1 tab Q4H PRN PO PAIN SCALE 1 TO 5 Last administered on 09/28/16 06:12; Start 09/25/16 at 00:30 Acetaminophen/ Hydrocodone Bitart ([place] 5-325 Mg) 2 tab Q4H PRN PO PAIN > 5; Start 09/25/16 at 00:30 Dextrose (D50w (Vial) Inj) 50 ml UNSCH PRN IV HYPOGLYCEMIA-SEE COMMENTS; Start 09/25/16 at 07:15 Glucagon 1 mg 1 mg UNSCH PRN OTHER HYPOGLYCEMIA-SEE COMMENTS; Start 09/25/16 at 07:15 Vancomycin HCl/ Sodium Chloride (Vancomycin Inj/ NS 250 ml Inj) 250 ml @ 250 mls/hr WITH DIALYSIS IV Last administered on 09/26/16 12:49; Start 09/26/16 at 09:45 Insulin Detemir (Levemir Inj) 5 units HS SQ Last administered on 09/26/16 20: 43; Start 09/26/16 at 21:00; Stop 09/27/16 at 09:12; Status DC Insulin Detemir (Levemir Inj) 10 units HS SQ Last administered on 09/27/16 21: 15; Start 09/27/16 at 21:00; Stop 09/28/16 at 09:30; Status DC Insulin Detemir (Levemir Inj) 15 units HS SQ Last administered on 09/28/16 21: 13; Start 09/28/16 at 21:00 Sevelamer Carbonate (Renvela) 1,600 mg TIDAC PO Last administered on 09/28/16 17:17; Start 09/28/16 at 12:00 Docusate Sodium (Colace) 100 mg BID PRN PO CONSTIPATION Last administered on 06:09; Start 09/28/16 at 12:15 A/P Assessment and Plan A/P - left great toe osteomyelitis- s/p left metatarsal resection/ wound vac placement continue with IV antibiotics and pain control- management per vascular surgery -diabetes mellitus; accu-check with SSI- A1c 7.5. increase levemir to 20 units sub qhs and continue with SSI. -hypertension; resumed coreg, cardizem and imdur- will continue to monitor and adjust the regimen as needed -ESRD-on HD; HD per nephrology. -anemia of chronic disease; epogen with HD- will monitor. -dyslipidemia; resumed statin -colon cancer- f/u as outpatient -DVT prophylaxis; subq heparin . Discharge Planning per vascular surgery. Teodoro Dangelo MD Sep 29, 2016 07:32
[2016-09-29] MEDS: CARVEDILOL 12.5 MG TAB PO SCH ×2 (08:00→08:08)
[2016-09-29] MEDS: DILTIAZEM-CD 180 MG CAP ER PO SCH (08:08)
[2016-09-29] MEDS: GABAPENTIN 100 MG CAP PO SCH ×3 (08:08→17:49)
[2016-09-29] MEDS: SEVELAMER CARBONATE 800 MG TAB PO SCH ×3 (08:08→17:49)
[2016-09-29] MEDS: lamoTRIgine 100 MG TAB PO SCH ×2 (08:08→21:09)
[2016-09-29] MEDS: ACETAMINOPHEN/HYDROcodone 325 MG/5 MG TAB PO PRN (08:20)
--- NOTE | 2016-09-29 09:25 | PD.VS.PN ---
Subjective POD #: 5 Procedure(s): LEFT first metatarsectomy Subjective/Hospital Course Pt to HD c/o mild pain to Left foot Wound vac to Left foot intact Objective Vitals/I&O Date Time Temp Pulse Resp B/P Pulse Ox O2 Delivery O2 Flow Rate FiO2 09/29/16 08:00 97.4 135 20 157/63 93 09/29/16 04:25 97.7 78 18 121/58 95 09/29/16 00:00 96.7 81 18 138/65 94 09/28/16 20:19 73 09/28/16 20:00 96.8 84 18 141/64 94 09/28/16 15:50 98.0 80 20 138/55 96 09/28/16 11:50 98.0 98 20 92/50 91 09/29/16 09/29/16 09/29/16 07:00 15:00 23:00 Intake Total 55 ml Output Total 75 ml Balance -20 ml Exam: A&OX3, GCS15, NAD Warm and dry/ Wound vac to Left foot intact Bilat feet warm with motor intact Assessment and Plan Assessment: (1) Amputated great toe of left foot Status: Acute Plan Plan Pt to HD today Continue Veraflow wound vac therapy to Left foot Apply heel protector to Left foot Change wound vac dressing tomorrow (09/30/16) Yaneth ZUNIGA [facility] [phone] Discharge Planning D/C planning to Rehab mid week Yaneth Magaña Sep 29, 2016 09:25
--- NOTE | 2016-09-29 10:02 | HHI.NPPN ---
Subjective General Problems: Hypertension Renal Failure: Chronic, End Stage Renal Disease Interval History Seen during dialysis. Wound vac in in place. No acute concerns. (Skyla Hernandez) Review of Systems Musculoskeletal MS: Pain/Stiffness MS Remarks foot post operatively (Skyla Hernandez) Objective Data Data 09/28/16 09/29/16 19:00 07:00 Intake Total 240 ml 110 ml Output Total 100 ml 175 ml Balance 140 ml -65 ml Intake Oral 240 ml IV Total 110 ml Output Urine Total 100 ml 175 ml # Bowel Movements 0 Vital Signs Date Time Temp Pulse Resp B/P Pulse Ox O2 Delivery O2 Flow Rate FiO2 09/29/16 08:00 97.4 135 20 157/63 93 09/29/16 04:25 97.7 78 18 121/58 95 09/29/16 00:00 96.7 81 18 138/65 94 09/28/16 20:19 73 09/28/16 20:00 96.8 84 18 141/64 94 09/28/16 15:50 98.0 80 20 138/55 96 09/28/16 11:50 98.0 98 20 92/50 91 (Skyla Hernandez) -: 09/28/16 0715 09/28/16 0715 Tubes & Lines Comment wound vac left foot (Skyla Hernandez) Physical Exam General Appearance: Well Developed, Well Nourished, No Acute Distress, Comfortable, Obese (Skyla Hernandez) Throat Throat Exam: Oral Mucosa [place] & Moist (Skyla Hernandez) Pulmonary Resp Exam: Clear Bilaterally, Breath Sounds Equal (Skyla Hernandez) Cardiology CV Exam: Good Perfusion, Irregular (Skyla Hernandez) Gastrointestinal/Abdomen GI Exam: Soft, Non-Tender, Bowel Sounds Present, Positive Bowel Movement GI Remarks morbidly obese (Skyla Hernandez) Musculoskeletal MS Exam: Normal Tone, Good Strength MS Remarks s/p left great toe amputation, wound vac in place (Skyla Hernandez) Integumentary Skin Exam: Warm, Dry (Skyla Hernandez) Extremeties Extremities Exam: No Edema, Pedal Pulses Palpable (Skyla Hernandez) Neurologic Neuro Exam: Alert, Awake, Oriented, Speech Clear, Moving All Extremities ( Skyla Hernandez) Assessment/Plan Discussed Condition With: Patient Assessment Summary: Anemia of CKD, [place] Hyperparathyroid, Hypertension, End Stage Renal Disease Problem List: (1) ESRD (end stage renal disease) Plan: Seen during dialysis on a 3K, 350 BFR, goal 3L Stable for discharge, can resume outpatient HD arrnagements TTS. avoid IVF Gadolinium is contraindicated No acute renal concerns No dietary protein restriction (2) Toe gangrene Plan: he is on vancomycin and Zosyn, Vancomycin to be given with dialysis. vascular is following continue wound care, wound vac plan to go to rehab this week (3) Hypertension Plan: continue home medications (4) Metabolic bone disease Plan: continue Renvela (5) Anemia of renal disease Plan: Epogen with dialysis (Skyla Hernandez) Problem List: (1) ESRD (end stage renal disease) Plan: Seen during dialysis on a 3K, 350 BFR, goal 3L Stable for discharge, can resume outpatient HD arrnagements TTS. avoid IVF Gadolinium is contraindicated No acute renal concerns No dietary protein restriction (2) Toe gangrene Plan: he is on vancomycin and Zosyn, Vancomycin to be given with dialysis. vascular is following continue wound care, wound vac plan to go to rehab this week (3) Hypertension Plan: continue home medications (4) Metabolic bone disease Plan: continue Renvela (5) Anemia of renal disease Plan: Epogen with dialysis Plan patient was seen and examined. Agree with above assessment and plan. Seen during dialysis. (Doni Floyd MD) Skyla Hernandez Sep 29, 2016 10:02 Doni Floyd MD Sep 29, 2016 14:29
[2016-09-29] MEDS: GELATIN 12 MM/7 MM FOAM TOP PRN (11:10)
[2016-09-29] MEDS: VANCOMYCIN INJ 1,000 MG in SODIUM CHLOR 0.9% 250 ML INJ 250 ML IV SCH (11:10)
[2016-09-29] MEDS: EPOETIN ALFA 10,000 UNITS/ML VIAL IV PRN (11:10)
[2016-09-29] MEDS ORDERED: INSULIN DETEMIR 100 UNITS/ML VIAL SQ SCH (21:00)
[2016-09-29] MEDS: ATORVASTATIN 80 MG TAB PO SCH (21:09)
[2016-09-30] VITALS: BP 133/60; PULSE 82; RESP 18; TEMP 98.7; O2SAT 94
[2016-09-30] MEDS: ACETAMINOPHEN/HYDROcodone 325 MG/5 MG TAB PO PRN ×2 (00:44→08:58)
[2016-09-30] MEDS: HEPARIN SODIUM - SQ 10,000 UNITS/ML VIAL SQ SCH ×2 (00:45→08:59)
[2016-09-30 04:15] VITALS: BP 129/63; PULSE 84; RESP 18; TEMP 97.4; O2SAT 94
[2016-09-30] MEDS: SODIUM CHLORIDE 0.9% FLUSH 10 ML FLUSH IV FLUSH PRN ×2 (05:02→06:33)
[2016-09-30] MEDS: PIPERACIL-TAZO 2.25 GM PREMIX 50 ML IV SCH (05:03)
[2016-09-30] MEDS: ALPRAZolam 0.25 MG TAB PO SCH ×2 (06:30→12:36)
[2016-09-30] MEDS: PANTOPRAZOLE SOD 40 MG DELAYED RELEASE TAB PO SCH (06:30)
[2016-09-30] MEDS: LOW DOSE INSULIN NOVOLOG SUPPLEMENTAL SCALE SQ SCH ×2 (06:30→11:55)
[2016-09-30] MEDS: ISOSORBIDE MONONITRATE 60 MG TAB PO SCH (06:30)
[2016-09-30 07:32] VITALS: PULSE 79
--- NOTE | 2016-09-30 07:45 | HHI.PR ---
Subjective Remarks resting comfortably with no distress. no new complaints. pain is controlled. Objective Vitals Vital Signs Date Time Temp Pulse Resp B/P Pulse Ox O2 Delivery O2 Flow Rate FiO2 09/30/16 04:15 97.4 84 18 129/63 94 09/30/16 00:00 98.7 82 18 133/60 94 09/29/16 22:43 103 09/29/16 20:45 99.1 102 18 141/56 95 09/29/16 16:00 98.2 128 18 126/69 95 09/29/16 13:42 120 09/29/16 13:00 98.0 88 18 136/62 94 09/29/16 08:00 97.4 135 20 157/63 93 I/O 09/29/16 09/29/16 09/29/16 09/30/16 09/30/16 09/30/16 07:00 15:00 23:00 07:00 15:00 23:00 Intake Total 55 ml 1200 ml 120 ml Output Total 75 ml 3000 ml 100 ml 25 ml Balance -20 ml -1800 ml -100 ml 95 ml Intake Oral 1200 ml IV Total 55 ml 120 ml Output Urine Total 75 ml 100 ml 25 ml Hemodialysis 3000 ml # Voids 1 # Bowel Movements 0 1 Result Diagram: 09/28/16 0715 09/28/16 0715 Imaging Last Impressions Foot X-Ray 09/23/16 0000 Signed Impressions: Service Date/Time: Friday, September 23, 2016 20:58 - CONCLUSION: Interim great toe amputation since the MRI. Suspected osteomyelitis of the first metatarsal head. Telly Whitley MD Objective Remarks GENERAL: This is a well-nourished, well-developed patient, in no apparent distress. CARDIOVASCULAR: Regular rate and regular rhythm without murmurs, gallops, or rubs. RESPIRATORY: Clear to auscultation. Breath sounds equal bilaterally. No wheezes , rales, or rhonchi. GASTROINTESTINAL: Abdomen soft, non-tender, nondistended. Normal, active bowel sounds MUSCULOSKELETAL: left foot covered with clean dressing with wound vac in place. NEURO: Alert & Oriented x4 to person, place, time, situation. Moves all ext x4 Medications and IVs Current Medications Dextrose (D50w (Vial) Inj) 25 ml UNSCH PRN IV PUSH HYPOGLYCEMIA - SEE COMMENTS ; Start 09/23/16 at 17:00; Stop 09/25/16 at 07:08; Status DC Glucagon 1 mg 1 mg UNSCH PRN OTHER HYPOGLYCEMIA-SEE COMMENTS; Start 09/23/16 at 17:00; Stop 09/25/16 at 07:08; Status DC Vancomycin HCl 1000 mg/Sodium Chloride 250 ml @ 250 mls/hr Q12H IV Last administered on 09/24/16 06:38; Start 09/23/16 at 18:00; Stop 09/24/16 at 10:07 ; Status DC Piperacillin Sod/ Tazobactam Sod (Zosyn 3.375 Gm Premix) 50 ml @ 100 mls/hr Q6H IV Last administered on 09/24/16 05:04; Start 09/23/16 at 17:00; Stop at 10:08; Status DC Heparin Sodium (Porcine) (Heparin Inj) 5,000 units Q8H SQ Last administered on 09/30/16 00:45; Start 09/23/16 at 17:00 Insulin Aspart 1 1 ACHS SLIDING SCALE SQ Last administered on 09/29/16 21:19 ; Start 09/23/16 at 21:00 Sodium Chloride (NS 1000 ml Inj) 1,000 ml @ 90 mls/hr Q11H7M IV Last administered on 09/23/16 22:21; Start 09/23/16 at 20:00; Stop 09/24/16 at 08:41 ; Status DC Atorvastatin Calcium (Lipitor) 80 mg HS PO Last administered on 09/29/16 21:09 ; Start 09/23/16 at 21:00 Carvedilol (Coreg) 25 mg DAILY@08 PO Last administered on 09/28/16 08:36; Start 09/24/16 at 08:00 Gabapentin (Neurontin) 100 mg TID PO Last administered on 09/29/16 17:49; Start 09/23/16 at 20:00 Pantoprazole Sodium (Protonix) 40 mg DAILY@06 PO Last administered on 06:30; Start 09/24/16 at 06:00 Sevelamer Carbonate (Renvela) 800 mg TIDAC PO Last administered on 09/28/16 08 :35; Start 09/24/16 at 08:00; Stop 09/28/16 at 09:37; Status DC Lamotrigine (LaMICtal) 100 mg BID PO Last administered on 09/29/16 21:09; Start 09/23/16 at 21:00 Alprazolam (Xanax) 0.25 mg Q8H PO Last administered on 09/30/16 06:30; Start 09/23/16 at 22:00 Amlodipine Besylate (Norvasc) 10 mg DAILY PO Last administered on 09/28/16 08: 36; Start 09/24/16 at 09:00 Isosorbide Mononitrate (Imdur) 120 mg BID@07,18 PO Last administered on 06:30; Start 09/23/16 at 18:56 Diltiazem HCl 180 mg 180 mg DAILY PO Last administered on 09/29/16 08:08; Start 09/24/16 at 09:00 Sodium Chloride (NS 1000 ml Inj) 1,000 ml @ 0 mls/hr Q0M PRN IV For Prime & Rinse Back Last administered on 09/24/16 13:09; Start 09/24/16 at 08:31 Heparin Sodium (Porcine) 8000 units 8,000 units UNSCH PRN IVF WITH DIALYSIS Last administered on 09/26/16 09:00; Start 09/24/16 at 08:45 Sodium Chloride 1,000 ml @ 200 mls/hr Q5H PRN IV WITH DIALYSIS; Start 09/24/16 at 08:31 Sodium Chloride (NS 1000 ml Inj) 1,000 ml @ 0 mls/hr Q0M PRN IV WITH DIALYSIS; Start 09/24/16 at 08:31 Mannitol (Mannitol Inj) 12.5 gm UNSCH PRN IV WITH DIALYSIS; Start 09/24/16 at 08:45 Albumin Human (Albumin 25% Inj) 25 gm UNSCH PRN IV WITH DIALYSIS; Start at 08:45 Sodium Chloride (NS Flush) 5 ml UNSCH PRN IV FLUSH WITH DIALYSIS Last administered on 09/30/16 06:33; Start 09/24/16 at 08:45 Heparin Sodium (Porcine) (Heparin Inj) UNSCH PRN .XX WITH DIALYSIS; Start at 08:45 Gentamicin Sulfate (Gentamicin (Dialysis) Inj) 20 mg UNSCH PRN IV WITH DIALYSIS ; Start 09/24/16 at 08:45 Ondansetron HCl (Zofran Inj) 4 mg UNSCH PRN IV WITH DIALYSIS; Start 09/24/16 at 08:45 Acetaminophen (Tylenol) 650 mg UNSCH PRN PO TEMP > 101F Last administered on 16:28; Start 09/24/16 at 08:45 Diphenhydramine HCl (Benadryl) 25 mg UNSCH PRN PO for hives/itching/anaphylaxis ; Start 09/24/16 at 08:45 Nitroglycerin (Nitrostat Sl) 0.4 mg UNSCH PRN SL CHEST PAIN; Start 09/24/16 at 08:45 Clonidine (Catapres) 0.1 mg UNSCH PRN PO for BP > 180/100 X 2 readings; Start 09/24/16 at 08:45 Epoetin [place] (Epogen Inj) 10,000 units UNSCH PRN IV WITH DIALYSIS Last administered on 09/29/16 11:10; Start 09/24/16 at 08:45 Gelatin 1 foam 1 foam UNSCH PRN TOP SEE LABEL COMMENTS Last administered on 11:10; Start 09/24/16 at 08:45 Vancomycin HCl 1000 mg/Sodium Chloride 250 ml @ 250 mls/hr Q48H IV Last administered on 09/26/16 05:53; Start 09/26/16 at 06:00; Stop 09/26/16 at 09:32 ; Status DC Piperacillin Sod/ Tazobactam Sod (Zosyn 2.25 Gm Premix) 50 ml @ 100 mls/hr Q8H IV Last administered on 09/30/16 05:03; Start 09/24/16 at 13:00; Stop at 12:59 Metoprolol Tartrate (Lopressor Inj) 5 mg STK-MED ONCE .ROUTE Last administered on 09/24/16 11:11; Start 09/24/16 at 11:11; Stop 09/24/16 at 11:12; Status DC Fentanyl Citrate (fentaNYL INJ) 100 mcg STK-MED ONCE .ROUTE ; Start 09/24/16 at 11:16; Stop 09/24/16 at 11:17; Status DC Hydromorphone HCl (*DILAUDID PF INJ PERIprocedural ONLY) 1 mg STK-MED ONCE .ROUTE Last administered on 09/24/16 11:29; Start 09/24/16 at 11:29; Stop at 11:30; Status DC Miscellaneous Information ALL NURSING DEPARTME... UNSCH PRN .XX SEE LABEL COMMENTS; Start 09/24/16 at 11:00; Stop 09/25/16 at 13:45; Status DC Metoprolol Tartrate (Lopressor Inj) 1 mg Q10M IV PUSH Last administered on 09/24 11:50; Start 09/24/16 at 11:12; Stop 09/24/16 at 15:18; Status DC Hydromorphone HCl (Dilaudid Pf Inj) 0.5 mg NOW ONCE IV Last administered on 20:13; Start 09/24/16 at 12:00; Stop 09/24/16 at 19:20; Status DC Acetaminophen/ Hydrocodone Bitart ([place] 5-325 Mg) 1 tab Q4H PRN PO PAIN SCALE 1 TO 5 Last administered on 09/30/16 00:44; Start 09/25/16 at 00:30 Acetaminophen/ Hydrocodone Bitart ([place] 5-325 Mg) 2 tab Q4H PRN PO PAIN > 5; Start 09/25/16 at 00:30 Dextrose (D50w (Vial) Inj) 50 ml UNSCH PRN IV HYPOGLYCEMIA-SEE COMMENTS; Start 09/25/16 at 07:15 Glucagon 1 mg 1 mg UNSCH PRN OTHER HYPOGLYCEMIA-SEE COMMENTS; Start 09/25/16 at 07:15 Vancomycin HCl/ Sodium Chloride (Vancomycin Inj/ NS 250 ml Inj) 250 ml @ 250 mls/hr WITH DIALYSIS IV Last administered on 09/29/16 11:10; Start 09/26/16 at 09:45 Insulin Detemir (Levemir Inj) 5 units HS SQ Last administered on 09/26/16 20: 43; Start 09/26/16 at 21:00; Stop 09/27/16 at 09:12; Status DC Insulin Detemir (Levemir Inj) 10 units HS SQ Last administered on 09/27/16 21: 15; Start 09/27/16 at 21:00; Stop 09/28/16 at 09:30; Status DC Insulin Detemir (Levemir Inj) 15 units HS SQ Last administered on 09/28/16 21: 13; Start 09/28/16 at 21:00; Stop 09/29/16 at 07:33; Status DC Sevelamer Carbonate (Renvela) 1,600 mg TIDAC PO Last administered on 09/29/16 17:49; Start 09/28/16 at 12:00 Docusate Sodium (Colace) 100 mg BID PRN PO CONSTIPATION Last administered on 06:09; Start 09/28/16 at 12:15 Insulin Detemir (Levemir Inj) 20 units HS SQ Last administered on 09/29/16 21: 19; Start 09/29/16 at 21:00 A/P Assessment and Plan A/P - left great toe osteomyelitis- s/p left metatarsal resection/ wound vac placement continue with IV antibiotics and pain control- management per vascular surgery and wound care -diabetes mellitus; accu-check with SSI- A1c 7.5. increase levemir to 25 units sub qhs and continue with SSI. -hypertension; resumed coreg, cardizem and imdur- will continue to monitor and adjust the regimen as needed -ESRD-on HD; HD per nephrology. -anemia of chronic disease; epogen with HD- will monitor. -dyslipidemia; resumed statin -colon cancer- f/u as outpatient -DVT prophylaxis; subq heparin . Discharge Planning per vascular surgery. Teodoro Dangelo MD Sep 30, 2016 07:45
[2016-09-30 07:50] VITALS: BP 145/84; PULSE 81; RESP 20; TEMP 97.7; O2SAT 93
[2016-09-30] MEDS: SEVELAMER CARBONATE 800 MG TAB PO SCH ×2 (08:58→12:36)
[2016-09-30] MEDS: lamoTRIgine 100 MG TAB PO SCH (08:59)
[2016-09-30] MEDS: CARVEDILOL 12.5 MG TAB PO SCH (08:59)
[2016-09-30] MEDS: GABAPENTIN 100 MG CAP PO SCH ×2 (08:59→12:36)
[2016-09-30] MEDS: DILTIAZEM-CD 180 MG CAP ER PO SCH (08:59)
--- NOTE | 2016-09-30 10:00 | PD.VS.DC ---
Discharge Summary Admission Date: Sep 23, 2016 at 15:17 Discharge Date: Sep 30, 2016 Admission Diagnosis: (1) Foot osteomyelitis, left Discharge Diagnosis: (1) Amputated great toe of left foot Status: Acute Brief History from admission 66 yo male with ESRD and DM for whom I performed a L great toe amputation on , was sent home with home care but wound has progressed. Angiogram prior to toe amputation showed in line flow to DP. Pt notes chills and hyperglycemia. o fevers, malaise. Procedure(s): LEFT first metatarsectomy Significant Findings Left foot with improved granulation tissue since last wound vac change No odor or swelling present Bilat feet warm with motor intact + Left DP/PT biphasic signals Laboratory Tests Test 09/28/16 07:15 Red Blood Count 3.05 MIL/MM3 (4.50-5.90) Hemoglobin 9.0 GM/DL (13.0-17.0) Hematocrit 28.3 % (39.0-51.0) Red Cell Distribution Width 17.9 % (11.6-17.2) Mean Platelet Volume 6.4 FL (7.0-11.0) Neutrophils (%) (Auto) 78.5 % (16.0-70.0) Neutrophils # (Auto) 7.8 TH/MM3 (1.8-7.7) Sodium Level 135 MEQ/L (136-145) Chloride Level 95 MEQ/L (98-107) Blood Urea Nitrogen 63 MG/DL (7-18) Creatinine 8.84 MG/DL (0.60-1.30) Estimat Glomerular Filtration 6 ML/MIN (>89) Rate Random Glucose 162 MG/DL (74-106) Phosphorus Level 8.3 MG/DL (2.5-4.9) Albumin 2.2 GM/DL (3.4-5.0) Hospital Course: 66 yo male with ESRD and DM L great toe amputation on 08/05, pt was sent home with home care but wound has progressed. Angiogram prior to toe amputation showed in line flow to DP. Pt notes chills and hyperglycemia prior to admission No fevers, malaise reported S/p LEFT first metatarsectomy Wound vac therapy post op with good results and improved granulation tissue Pt will be d/c to a SNF with wound vac therapy Allergies Coded Allergies Type Severity Reaction Last Updated Verified Demerol Allergy Severe HYPERTENSION 08/05/16 Yes Morphine Allergy Severe HYPERTENSION 08/05/16 Yes ////// 06:00 18:00 06:00 18:00 06:00 18:00 Intake Total 115 ml 295 ml 110 ml 1200 ml 55 ml 65 ml Output Total 250 ml 100 ml 175 ml 3100 ml 25 ml Balance -135 ml 195 ml -65 ml -1900 ml 30 ml 65 ml Intake Oral 60 ml 240 ml 1200 ml IV Total 55 ml 55 ml 110 ml 55 ml 65 ml Output Urine Total 250 ml 100 ml 175 ml 100 ml 25 ml Hemodialysis 3000 ml # Voids 1 # Bowel Movements 0 0 0 1 Laboratory Tests Test 09/28/16 07:15 White Blood Count 9.9 TH/MM3 Red Blood Count 3.05 MIL/MM3 Hemoglobin 9.0 GM/DL Hematocrit 28.3 % Mean Corpuscular Volume 92.8 FL Mean Corpuscular Hemoglobin 29.7 PG Mean Corpuscular Hemoglobin 32.0 % Concent Red Cell Distribution Width 17.9 % Platelet Count 232 TH/MM3 Mean Platelet Volume 6.4 FL Neutrophils (%) (Auto) 78.5 % Lymphocytes (%) (Auto) 10.0 % Monocytes (%) (Auto) 7.9 % Eosinophils (%) (Auto) 3.3 % Basophils (%) (Auto) 0.3 % Neutrophils # (Auto) 7.8 TH/MM3 Lymphocytes # (Auto) 1.0 TH/MM3 Monocytes # (Auto) 0.8 TH/MM3 Eosinophils # (Auto) 0.3 TH/MM3 Basophils # (Auto) 0.0 TH/MM3 CBC Comment DIFF FINAL Differential Comment Sodium Level 135 MEQ/L Potassium Level 4.3 MEQ/L Chloride Level 95 MEQ/L Carbon Dioxide Level 25.0 MEQ/L Anion Gap 15 MEQ/L Blood Urea Nitrogen 63 MG/DL Creatinine 8.84 MG/DL Estimat Glomerular Filtration 6 ML/MIN Rate Random Glucose 162 MG/DL Calcium Level 9.0 MG/DL Phosphorus Level 8.3 MG/DL Albumin 2.2 GM/DL Procedure Category Date Status Time Canister, Vac With Gel SPD 09/27/16 Logged 19:08 Insulin Detemir Inj MED 09/28/16 Complete (Levemir Inj) 21:00 Sevelamer (Renvela) MED 09/28/16 In Process 12:00 Docusate Sodium MED 09/28/16 In Process (Colace) 12:15 Insulin Detemir Inj MED 09/29/16 Complete (Levemir Inj) 21:00 ^ Other Nursing Orders ORQUIDEA 09/29/16 In Process 09:40 Canister, Vac With Gel SPD 09/29/16 Logged 22:40 ^ Aurelio Bandage ORQUIDEA 09/29/16 In Process 22:40 Insulin Detemir Inj MED 09/30/16 In Process (Levemir Inj) 21:00 Dressing, Vac Med SPD 09/30/16 Logged 09:06 Canister, Vac With Gel SPD 09/30/16 Logged 09:36 Attending Discharge DISCHARGE 09/30/16 Transmitted Order Vital Signs Date Time Temp Pulse Resp B/P Pulse Ox O2 Delivery O2 Flow Rate FiO2 09/30/16 07:50 97.7 81 20 145/84 93 09/30/16 07:32 79 09/30/16 04:15 97.4 84 18 129/63 94 09/30/16 00:00 98.7 82 18 133/60 94 09/29/16 22:43 103 09/29/16 20:45 99.1 102 18 141/56 95 09/29/16 16:00 98.2 128 18 126/69 95 09/29/16 13:42 120 09/29/16 13:00 98.0 88 18 136/62 94 09/29/16 08:00 97.4 135 20 157/63 93 09/29/16 04:25 97.7 78 18 121/58 95 09/29/16 00:00 96.7 81 18 138/65 94 09/28/16 20:19 73 09/28/16 20:00 96.8 84 18 141/64 94 09/28/16 15:50 98.0 80 20 138/55 96 09/28/16 11:50 98.0 98 20 92/50 91 09/28/16 07:50 98.4 101 20 134/59 94 09/28/16 04:00 96.6 89 19 140/66 94 09/28/16 00:00 97.8 84 18 122/64 96 09/27/16 20:19 90 09/27/16 20:00 98.0 115 19 145/78 94 09/27/16 15:50 96.6 76 20 131/62 94 09/27/16 11:43 97.2 74 20 125/60 95 09/27/16 10:29 77 Discharge Condition: Good Discharge Disposition: Discharge to SNF Discharge Instructions: Continue Wound vac therapy to L foot Pt will f/u in our OPC in 1W for continued surveillance Call the office with any questions or concerns Yaneth ZUNIGA [facility]/[place] [phone] Any questions or concerns: Call [facility] at [facility] [phone] Yaneth Magaña Sep 30, 2016 10:00
--- NOTE | 2016-09-30 10:07 | PD.VS.PN ---
Subjective POD #: 6 Procedure(s): LEFT first metatarsectomy Subjective/Hospital Course Pt w/o complaints Wound vac dressing changed Improved granulation tissue to L foot Objective Vitals/I&O Date Time Temp Pulse Resp B/P Pulse Ox O2 Delivery O2 Flow Rate FiO2 09/30/16 07:50 97.7 81 20 145/84 93 09/30/16 07:32 79 09/30/16 04:15 97.4 84 18 129/63 94 09/30/16 00:00 98.7 82 18 133/60 94 09/29/16 22:43 103 09/29/16 20:45 99.1 102 18 141/56 95 09/29/16 16:00 98.2 128 18 126/69 95 09/29/16 13:42 120 09/29/16 13:00 98.0 88 18 136/62 94 09/30/16 09/30/16 09/30/16 07:00 15:00 23:00 Intake Total 120 ml Output Total 25 ml Balance 95 ml Exam: Biphasic L DP noted Bilat LE motor intact Incisions: Improved Granulation tissue to L foot (surgical site) No Odor/ Swelling/ Drainage present Assessment and Plan Assessment: (1) Amputated great toe of left foot Status: Acute Plan Plan D/C to SNF today Continue wound vac therapy to Left foot Apply heel protector to Left foot D/C Zosyn add Levaquin PO for 9 days Yaneth ZUNIGA [facility]/[employer] [phone] Discharge Planning D/C to SNF Yaneth Magaña Sep 30, 2016 10:07
--- NOTE | 2016-09-30 10:10 | HHI.NPPN ---
Subjective General Problems: Hypertension Renal Failure: Chronic, End Stage Renal Disease Interval History Seen during wound vac change. No pain but wound is extensive. (Skyla Hernandez) Review of Systems Musculoskeletal MS: Pain/Stiffness MS Remarks foot post operatively (Skyla Hernandez) Objective Data Data 09/29/16 09/30/16 19:00 07:00 Intake Total 1200 ml 120 ml Output Total 3100 ml 25 ml Balance -1900 ml 95 ml Intake Oral 1200 ml IV Total 120 ml Output Urine Total 100 ml 25 ml Hemodialysis 3000 ml # Voids 1 # Bowel Movements 0 1 Vital Signs Date Time Temp Pulse Resp B/P Pulse Ox O2 Delivery O2 Flow Rate FiO2 09/30/16 07:50 97.7 81 20 145/84 93 09/30/16 07:32 79 09/30/16 04:15 97.4 84 18 129/63 94 09/30/16 00:00 98.7 82 18 133/60 94 09/29/16 22:43 103 09/29/16 20:45 99.1 102 18 141/56 95 09/29/16 16:00 98.2 128 18 126/69 95 09/29/16 13:42 120 09/29/16 13:00 98.0 88 18 136/62 94 (Skyla Hernandez) -: 09/28/16 0715 09/28/16 0715 Tubes & Lines Comment wound vac left foot (Skyla Hernandez) Physical Exam General Appearance: Well Developed, Well Nourished, No Acute Distress, Comfortable, Obese (Skyla Hernandez) Throat Throat Exam: Oral Mucosa [place] & Moist (Skyla Hernandez) Pulmonary Resp Exam: Clear Bilaterally, Breath Sounds Equal (Skyla Hernandez) Cardiology CV Exam: Good Perfusion, Irregular (Skyla Hernandez) Gastrointestinal/Abdomen GI Exam: Soft, Non-Tender, Bowel Sounds Present, Positive Bowel Movement GI Remarks morbidly obese (Skyla Hernandez) Musculoskeletal MS Exam: Normal Tone, Good Strength MS Remarks s/p left great toe amputation, wound vac in place (Skyla Hernandez) Integumentary Skin Exam: Warm, Dry (Skyla Hernandez) Extremeties Extremities Exam: No Edema, Pedal Pulses Palpable (Skyla Hernandez) Neurologic Neuro Exam: Alert, Awake, Oriented, Speech Clear, Moving All Extremities ( Skyla Hernandez) Assessment/Plan Discussed Condition With: Patient Assessment Summary: Anemia of CKD, [place] Hyperparathyroid, Hypertension, End Stage Renal Disease Problem List: (1) ESRD (end stage renal disease) Plan: 3L UF yesterday with dialysis, continue TTS dialysis support while admitted Stable for discharge per renal, can resume outpatient HD arrangements TTS. avoid IVF Gadolinium is contraindicated No acute renal concerns No dietary protein restriction (2) Toe gangrene Plan: he is on vancomycin and Zosyn, Vancomycin to be given with dialysis. vascular is following continue wound care, wound vac plan to go to rehab this week likely will require additional surgeries for wound closure (3) Hypertension Plan: continue home medications (4) Metabolic bone disease Plan: continue Renvela (5) Anemia of renal disease Plan: Epogen with dialysis (Skyla Hernandez) Plan patient was seen and examined. Agree with above assessment and plan. (Doni Floyd MD) Skyla Hernandez Sep 30, 2016 10:10 Doni Floyd MD Sep 30, 2016 18:29
--- NOTE | 2016-09-30 10:32 | PD.WCN.NOT ---
Wound Consult Description: L foot Recommendation: Veraflow discontinued. Wound Vac dressing changed with EFRAIN Schmid Additional Information: Next wound VAC change will be Wednesday10/05/16 and then every and Wednesday. Neg Pressure Wound Therapy Wound Location Wound Location: L foot Wound Description Length: 7.4cm Width: 5cm Depth: 1.2cm Wound bed appearance: Wound bed to left medial foot presents with ~40% red granulation tissue, ~30% non granulating red tissue, 10% muscle, ~10% fascia, ~5% bone,and ~5% adipose tissue. There is a mild odor within wound bed and no active drainage noted. Settings Suction: 125 mmHg, Continuous Intensity: Low Other Information: Bridged, Windowpaned Foam type: Black Number of pieces: 2 Additonal Information Veraflow wound VAC dressing was removed from left foot. Wound was cleansed with NS and measured above with description of wound bed. Oil emulsion (adaptic) was placed over tendon in wound bed prior to skin prepping periwound with Cavilon spray and window paning with VAC drape and 2 pieces of Maxorb was placed over the boggy purple discoloration with partial thickness skinloss. 2 pieces black granufoam applied over and in wound bed and secured with VAC drape. Trac pad was placed on dorsum after bridging. Patient tolerated wound VAC change well with setting s @125mmHg low continuous suction. Alaina Ramachandran [facility] Sep 30, 2016 10:32
[2016-09-30 11:30] VITALS: BP 139/62; PULSE 99; RESP 20; TEMP 96.8; O2SAT 92
[2016-09-30 11:55] VITALS: RESP 16
[2016-09-30] MEDS ORDERED: INSULIN DETEMIR 100 UNITS/ML VIAL SQ SCH (21:00)
== END 2016-09-30 14:19 | DRG 500 ==
LOC: NEPHCDU 15:17 → HOCB 20:24
PROVIDERS: ADMIT Surgery; ATTEND Surgery
PROC: 0QBP0ZZ Excision of Left Metatarsal, Open Approach (ICD-10-PCS; 2016-09-24)
PROC: 5A1D60Z (ICD-10-PCS; 2016-09-24)
PROC: 0KBW0ZZ Excision of Left Foot Muscle, Open Approach (ICD-10-PCS; principal; 2016-09-24 10:11)
DX: T87.44 Infection of amputation stump, left lower extremity (principal); I12.0 Hypertensive chronic kidney disease with stage 5 chronic kidney disease or end stage renal disease; N18.6 End stage renal disease; E88.89 Other specified metabolic disorders; N25.81 Secondary hyperparathyroidism of renal origin; M86.9 Osteomyelitis, unspecified; Z68.41 Body mass index [BMI] 40.0-44.9, adult; E11.69 Type 2 diabetes mellitus with other specified complication; E11.628 Type 2 diabetes mellitus with other skin complications; E11.22 Type 2 diabetes mellitus with diabetic chronic kidney disease; Z79.4 Long term (current) use of insulin; Z99.2 Dependence on renal dialysis; D63.1 Anemia in chronic kidney disease; E78.5 Hyperlipidemia, unspecified; I48.91 Unspecified atrial fibrillation; I25.10 Atherosclerotic heart disease of native coronary artery without angina pectoris; K21.9 Gastro-esophageal reflux disease without esophagitis; E66.9 Obesity, unspecified; F32.9 Major depressive disorder, single episode, unspecified; F81.9 Developmental disorder of scholastic skills, unspecified; E83.39 Other disorders of phosphorus metabolism; Z85.038 Personal history of other malignant neoplasm of large intestine
CPT/HCPCS: 73620; 76937; 80048; 80069; 80202; 82948; 83036; 85025; 90935; 96365; 96374; 96375; J1170; J1644; J1815; J2370; J2405; J2543; J3010; J3370; J7030; J7050; Q4081

== ENCOUNTER 2016-10-14 14:04 | Emergency (ER) | payer MEDICARE, BC ==
[~2016-10-14] VITALS: Ht 180.3 cm; Wt 93.5 kg
[~2016-10-14 14:04] MED LIST changes: +ALPR0.25 PO; -DULC10SU3 RECTAL; -MIRA33504 PO; -SENN8.6T5 PO
[2016-10-14 14:06] VITALS: BP 140/67; PULSE 95; RESP 18; TEMP 98.6; O2SAT 91
== END 2016-10-14 17:10 | disposition left against medical advice (07) ==
LOC: NED 14:04
DX: Z53.21 Procedure and treatment not carried out due to patient leaving prior to being seen by health care provider (principal)
CPT/HCPCS: 99281